=== PATIENT | male | born 1970 | race Caucasian/White ===

== ENCOUNTER 2022-04-02 18:10 | Inpatient (IN) | payer OTHER, SELFPAY ==
[2022-04-02 18:12] VITALS: BP 132/64; PULSE 69; RESP 14; TEMP 37.1; O2SAT 97; BMI 30.2
--- NOTE | 2022-04-02 19:40 | ED.VIS.GI ---
HPI HPI - GI History of Present Illness Chief Complaint: Nausea/Vomiting/Diarrhea Narrative Narrative: 51-year-old male presenting with nausea, vomiting, diarrhea. Apparently this started yesterday. Multiple episodes of vomiting and diarrhea which she describes as brownish-black. He has had no bloody emesis or bloody stool. He spoke with a friend who told him to come get evaluated because he was concerned for GI bleed. Patient is on Eliquis. He denies lightheadedness or dizziness. He states he has been recently referred to a GI doctor because of some early cirrhosis/fatty liver and elevated LFTs. He has no sick contacts. 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 He typically eats pizza. And other fast food side effects. He states he was previously put on pantoprazole for a month and did not realize how well it worked until he is been off of it. He has been taking Rolaids at home. He has tried Mylanta. His states he looks a little bit yellow to her. She states his colors been off since [place]. No acute changes since has been sick last couple of days. She states that he has lost weight however he states he weighed himself and he is about the same way. [facility] Medical History Afib Home Medications metoprolol tartrate 50 mg PO BID 06/12/15 [History Last Taken Unknown] apixaban [Eliquis] 5 mg PO BID 04/02/22 [History Last Taken Unknown] furosemide 40 mg PO DAILY 04/02/22 [History Last Taken Unknown] losartan-hydrochlorothiazide 1 tab PO DAILY 04/02/22 [History Last Taken Unknown] metoprolol succinate 100 mg PO DAILY 04/02/22 [History Last Taken Unknown] potassium chloride 20 meq PO DAILY 04/02/22 [History Last Taken Unknown] tamsulosin 0.4 mg PO DAILY 04/02/22 [History Last Taken Unknown] Allergy/AdvReac Type Severity Reaction Status Date / Time fish derived Allergy Anaphylaxis Verified 04/02/22 18:11 Penicillins Allergy Hives Verified 04/02/22 18:11 Social History Smoking Status: Former smoker ROS ROS ED Constitutional Constitutional ED: Denies chills or fever(s) ENT ENT ED: Denies rhinorrhea or sore throat Cardiovascular Cardiovascular: Denies chest pain or palpitations Respiratory/Chest Respiratory/Chest: Denies cough or dyspnea Gastrointestinal Gastrointestinal: Reports abdominal pain, diarrhea, melena, nausea and vomiting; Denies constipation Genitourinary Genitourinary ED: Denies dysuria or hematuria Musculoskeletal Musculoskeletal: Denies arthralgias or myalgias Integumentary Denies rash Neurologic Neurologic: Denies headache(s) or weakness Psychiatric Psychiatric: Denies anxiety or depression Endocrine Endocrinology: Denies polydipsia or polyuria EXAM Physical Exam Const Vital Signs: 04/02/22 18:12 Temperature 98.7 F Temperature Source Temporal Pulse Rate 69 Respiratory Rate 14 Blood Pressure 132/64 H Blood Pressure Mean 86 Pulse Ox 97 Oxygen Delivery Method Room Air Positive well nourished General Appearance ED: NAD; Negative for pallor HEENT normocephalic and atraumatic Eyes PERRL and EOMs intact bilaterally Resp normal respiratory effort and clear to auscultation bilaterally Cardio regular rate and regular rhythm GI non-tender, non-distended and no masses Auscultation: normoactive bowel sounds Palpation: soft Extremity full ROM General Extremety ED: Negative for edema General Extremity: Negative for edema Neuro CN's II-XII intact bilaterally and moves all extremities Sensorium / Orientation: alert, oriented to person, oriented to place and oriented to time Psych mental status grossly normal Skin General Skin Exam: Negative for jaundice or pallor MDM MDM MDM Narrative Medical decision making narrative: Patient presenting with black/brown emesis and black stool. He is concerned his blood. Acute. Hemoccult and this is negative however the patient's hemoglobin is dropped to 7.6. Today when and November 2021 his hemoglobin was 13.1. His BUN is elevated at 38 his creatinine is 1.24. Magnesium is normal at 1.9. Potassium low at 2.9 and the patient states this is a chronic issue when he takes oral medication for this but has been vomiting. Total bilirubin is elevated at 4.6 and last checked and was 1.6-1.8. He does have a history of fatty liver disease he was told. His AST is elevated at 74. Lipase negative. Patient was typed and screened but I do not believe he needs blood products currently. I spoke with Dr. Samuel who agreed. He recommended Protonix, holding Eliquis, fluid hydration and monitoring. We did discuss getting a CT scan of the abdomen pelvis and there is findings consistent with portal hypertension with mild mesenteric edema and ascites. Gallbladder is contracted with nonspecific findings on CAT scan. He does not have a Saucedo sign or right upper quadrant tenderness. Do not believe he needs a right upper quadrant ultrasound currently. Discussed with the hospitalist for admission. Patient transferred to the floor in stable condition. Impression: 1. Acute blood loss anemia 2. GI bleed 3. Hypokalemia 4. Thrombocytopenia 5. Hypokalemia Lab Data Labs: Laboratory Results - last 24 hr 04/02/22 04/02/22 04/02/22 18:35 18:35 18:35 WBC 7.1 RBC 2.16 L Hgb 7.6 L Hct 22.9 L MCV 106.0 H MCH 35.2 H MCHC 33.2 RDW Std Deviation 55.3 H RDW Coeff of Chris 14.4 Plt Count 70 L MPV 11.9 Immature Gran % (Auto) 0.300 Neut % (Auto) 60.3 Lymph % (Auto) 24.4 [place] % (Auto) 12.9 H Eos % (Auto) 1.7 Baso % (Auto) 0.4 Absolute Neuts (auto) 4.3 Absolute Lymphs (auto) 1.72 Nucleated RBC % 0 Differential Comment SEE COMMENT Platelet Estimate MOD DEC RBC Morphology N CHROM Hypochromasia 1+ Anisocytosis 1+ Macrocytosis 1+ Sodium 140 Potassium 2.9 L Chloride 103 Carbon Dioxide 31.0 Anion Gap 6 BUN 38 H Creatinine 1.24 Estim Creat Clear Calc 88.47 Est GFR (MDRD) Af Amer 80 Est GFR (MDRD) Non-Af 66 BUN/Creatinine Ratio 30.6 H Glucose 106 Calcium 9.5 Magnesium 1.9 Total Bilirubin 4.60 H AST 74 H ALT 41 Alkaline Phosphatase 85 Total Protein 7.8 Albumin 2.5 L Globulin 5.3 H Albumin/Globulin Ratio 0.5 L Lipase 123 Blood Type Antibody Screen 04/02/22 20:50 WBC RBC Hgb Hct MCV MCH MCHC RDW Std Deviation RDW Coeff of Chris Plt Count MPV Immature Gran % (Auto) Neut % (Auto) Lymph % (Auto) [place] % (Auto) Eos % (Auto) Baso % (Auto) Absolute Neuts (auto) Absolute Lymphs (auto) Nucleated RBC % Differential Comment Platelet Estimate RBC Morphology Hypochromasia Anisocytosis Macrocytosis Sodium Potassium Chloride Carbon Dioxide Anion Gap BUN Creatinine Estim Creat Clear Calc Est GFR (MDRD) Af Amer Est GFR (MDRD) Non-Af BUN/Creatinine Ratio Glucose Calcium Magnesium Total Bilirubin AST ALT Alkaline Phosphatase Total Protein Albumin Globulin Albumin/Globulin Ratio Lipase Blood Type A POSITIVE Antibody Screen NEGATIVE Radiography Diagnostic Testing: Clinical Impression(s) from Imaging Studies Abdomen/Pelvis CT 04/02/22 20:46 IMPRESSION: Diffuse hepatocellular disease and diffuse mesenteric edema with mild ascites. Recanalization of umbilical vein suggesting portal hypertension. Mild diverticular changes of the colon without evidence for acute diverticulitis Contracted thick-walled gallbladder with tiny poorly calcified stone or polyp. If concern for gallbladder disease ultrasound recommended Electronically Signed: Prieto Davis MD at 21:39 EDT Reading Location ID and State: [facility] / [place] , Service support , Discharge Plan Triage Chief Complaint: Nausea/Vomiting/Diarrhea ED Provider: Mejia Chin Dx/Rx/DC Orders Prescriptions: No Action metoprolol tartrate 50 MG tablet 50 mg PO BID RF: 0 furosemide 40 mg tablet 40 mg PO DAILY RF: 0 metoprolol succinate 100 mg tablet extended release 24 hr 100 mg PO DAILY RF: 0 tamsulosin 0.4 mg capsule 0.4 mg PO DAILY RF: 0 losartan-hydrochlorothiazide 100-12.5 mg tablet 1 tab PO DAILY RF: 0 Eliquis 5 mg tablet 5 mg PO BID RF: 0 potassium chloride 10 MEQ tablet,ER particles/crystals 20 meq PO DAILY RF: 0 Primary Care Provider: Jovan Hamilton
[2022-04-02] MEDS: 0.9% Normal Saline 1,000 ML 1000 ML IV (19:42)
[2022-04-02] MEDS: Ondansetron 4 MG/2 ML Vial IV (19:42)
[2022-04-02 19:46] LABS: Absolute Lymphocyte Count 1.72 X10^3/uL (0.83-4.51); Absolute Neutrophil Count 4.3 X10^3/uL (2.0-7.7); Basophil# 0.03 X10^3/uL; Basophil% 0.4 % (0-1); Eosinophil# 0.12 X10^3/uL; Eosinophils% 1.7 % (0-5); Hematocrit 22.9 % (40-54); Hemoglobin 7.6 g/dL (13.0-16.5); Lymphocyte # 1.72 X10^3/ul (0.83-4.51); Lymphocyte % 24.4 % (19-41); Mean Corp Hgb Conc 33.2 g/dL (32-36); Mean Corpuscular Hgb 35.2 pg (27.0-32.0); Mean Platelet Vol. 11.9 fl (6.2-12.0); Monocyte# 0.91 X10^3/uL; Monocyte% 12.9 % (0-10); NRBC Flagged by Analyzer 0 % (0-5); Neutrophil # 4.25 X10^3/uL (2.7-7.7); Neutrophil % 60.3 % (47-70); POSITIVE COUNT YES; Platelet Count 70 K/mm3 (150-450); RBC Distribution Width CV 14.4 % (11.6-14.6); RBC Distribution Width SD 55.3 fl (35.1-43.9); Red Blood Count 2.16 M/mm3 (4.6-6.2); White Blood Count 7.1 K/mm3 (4.4-11.0)
[2022-04-02] MEDS: Famotidine 200 MG/20 ML MDV 20 MG in 0.9% Normal Saline (Pres. free 8 ML 300 MG IV (19:53)
[2022-04-02 20:02] LABS: ALB/GLOB Ratio 0.5 RATIO (0.9-2.4); AST(SGOT) 74 U/L (15-37); Alanine Aminotransfer ALT/SGPT 41 U/L (16-61); Albumin, Serum 2.5 g/dL (3.2-5.0); Alkaline Phosphatase 85 U/L (45-117); Anion Gap 6 (5-15); BUN 38 mg/dL (7-18); BUN/Creat Ratio 30.6 RATIO (10-20); Calcium,Total 9.5 mg/dL (8.5-10.1); Chloride 103 mmol/L (98-107); Creatinine, Serum 1.24 mg/dL (0.70-1.30); EST Glomerular Filtration Rate 66 mL/min (>60); Est Glom Filt Rate - Afr Amer 80 mL/min (>60); Estimated Creatinine Clearance 88.47 ml/min; Globulin 5.3 g/dL (2.2-4.2); Glucose 106 mg/dL (74-106); Lipase 123 U/L (73-393); Potassium 2.9 mmol/L (3.5-5.1); Protein, Total 7.8 g/dL (6.4-8.2); Sodium Level 140 mmol/L (136-145)
[2022-04-02 20:35] LABS: Differential Indicated SCAN CRITERIA MET
[2022-04-02 20:36] LABS: Anisocytosis 1+; Hypochromasia 1+; Platelet Estimate MOD DEC (ADEQ); Red Cell Morphology N CHROM NORMAL (NORM C&C)
[2022-04-02 20:37] LABS: Macrocytosis 1+
--- NOTE | 2022-04-02 20:46 | CT_ITS ---
STUDY: CT ABDOMEN AND PELVIS WITH CONTRAST REASON FOR EXAM: Male, 51 years old. abdominal pain RADIATION DOSAGE (If Supplied By Facility): CTDIvol = ( 14.82 ) mGy, DLP = ( 1240.87 ) mGycm TECHNIQUE: Transaxial images were obtained from the dome of the diaphragm to the symphysis pubis without oral contrast. IV 75mL Isovue-370 was administered. Sagittal and coronal images were reconstructed. Individualized dose optimization techniques were used for this CT. COMPARISON: None. FINDINGS: The visualized lung bases are unremarkable. Heart is normal in size. There is mild pericardial calcification There is fluid in the right subphrenic space. Liver is mildly enlarged but homogeneous attenuation without mass or bile duct dilatation.. Thick-walled gallbladder with tiny poorly calcified stone or polyp.. Borderline splenomegaly. There is recanalization of the umbilical vein suggesting portal hypertension Normal pancreas. Normal bilateral adrenal glands. No evidence for renal obstruction. There is a small cyst in left kidney which do not require additional imaging. Normal visualized stomach. Normal small intestine. Mild diverticular changes of the distal descending and sigmoid colon without evidence for acute diverticulitis.. The appendix is visualized and appears normal. Minor atherosclerotic changes of the aorta without evidence for aneurysm.. Normal inferior vena cava. Normal retroperitoneum. Mild diffuse mesenteric edema and mild ascites is observed.. Poorly distended thick-walled bladder likely of no significance. Bilateral fat-containing inguinal hernias are noted. Lumbar spine demonstrates mild spondylosis. Interosseous hemangioma within the L5 vertebral body CT/Abdomen/Pelvis W IV Cont ONLY IMPRESSION: Diffuse hepatocellular disease and diffuse mesenteric edema with mild ascites. Recanalization of umbilical vein suggesting portal hypertension. Mild diverticular changes of the colon without evidence for acute diverticulitis Contracted thick-walled gallbladder with tiny poorly calcified stone or polyp. If concern for gallbladder disease ultrasound recommended Electronically Signed: Prieto Davis MD at 21:39 EDT ,
[2022-04-02 21:45] LABS: Magnesium 1.9 mg/dL (1.6-2.6)
[2022-04-02 22:00] VITALS: BP 132/78; PULSE 79; RESP 16; TEMP 36.6; O2SAT 97
[2022-04-02 22:32] LABS: Hematocrit 22.9 % (40-54); Hemoglobin 7.5 g/dL (13.0-16.5)
--- NOTE | 2022-04-02 22:48 | PCM.HP.STD ---
HPI - General General Date of Admission: 04/02/22 HPI Narrative CHENCHO MACARIO, is a 51 M who presented to the emergency department at [facility] on 04/02/2022 secondary to nausea, vomiting, and diarrhea. The patient reports that it started approximately 2 days ago. He states he has had multiple episodes of liquidy/watery diarrhea that he describes as blackish brown. He states he has had bowel movements every hour and indicates that anytime he eats he has a bowel movement approximately 45 minutes following. He has had no recent exposures to any antibiotics or anybody that is been ill. 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 He also reports that he has had some coffee-ground emesis periodically. He evidently spoke to a friend and told them what was going on and told him to come get evaluated because they were concerned for bleeding in his GI tract. The patient takes Eliquis at baseline for atrial fibrillation. He denied any lightheadedness or dizziness. He does indicate he is recently been referred to a GI doctor because of some concern for cirrhosis/fatty liver with abnormal LFTs. His appetite ebbs and flows. His states that he is changed dramatically since approximately [place] time with regards to his weight and his oral intake. The patient states he is lost approximately 12 pounds if that in the last year. He had previously been on Protonix but it was discontinued. Vital signs the emergency department showed a temperature of 98.7, heart rate of 69, blood pressure 132/64, respiratory rate of 14, and oxygen saturation of 97% on room air. His CBC showed normal white count but a hemoglobin of 7.6 with an MCV of 106 and a platelet count of 70,000. In November of this past year lab was performed at a different institution and he was found to have a hemoglobin at approximately 12.5 and a platelet count of 125,000 at that time. His chemistry panel showed a potassium of 2.9, BUN of 38 and a serum creatinine of 124. His renal function is elevated compared to baseline. His total bilirubin was 4.6 his AST was 74 and his ALT was 41. A lipase was performed and found to be 123. A CT of his abdomen pelvis was performed and showed diffuse hepatocellular disease and diffuse mesenteric edema with mild ascites, recannulization of the umbilical vein, mild diverticular changes in the colon without evidence of diverticulitis, a contracted thick-walled gallbladder with tiny calcified stones or polyp. [facility] Medical History Afib History of alcohol abuse Mild intermittent asthma Resistant hypertension Home Medications metoprolol tartrate 50 mg PO BID 06/12/15 [History Last Taken Unknown] apixaban [Eliquis] 5 mg PO BID 04/02/22 [History Last Taken Unknown] furosemide 40 mg PO DAILY 04/02/22 [History Last Taken Unknown] losartan-hydrochlorothiazide 1 tab PO DAILY 04/02/22 [History Last Taken Unknown] metoprolol succinate 100 mg PO DAILY 04/02/22 [History Last Taken Unknown] potassium chloride 20 meq PO DAILY 04/02/22 [History Last Taken Unknown] tamsulosin 0.4 mg PO DAILY 04/02/22 [History Last Taken Unknown] Allergy/AdvReac Type Severity Reaction Status Date / Time fish derived Allergy Anaphylaxis Verified 04/02/22 18:11 Penicillins Allergy Hives Verified 04/02/22 18:11 Family History (Updated 04/02/22 @ 23:[address] Rhina Varghese DO) Other Aortic valve disease CAD (coronary artery disease) COPD (chronic obstructive pulmonary disease) Cancer Hyperlipidemia Hypertension no surgical history Social History (Updated 04/02/22 @ 23:[address] Rhina Varghese DO) household members: spouse housing: house current occupational status: employed current occupation: Works in the [employer] business Smoking Status: Former smoker Smokeless tobacco user: chewing tobacco how long ago did patient quit smokin yrs alcohol intake: current alcohol intake frequency: a few times a week Alcohol type: beer details: Used to drink approximately 1 case daily for about 10 years-quit 20 yrs ago substance use type: does not use ROS Constitutional Constitutional: Reports change in weight and fatigue; Denies anorexia, chills, fever(s), malaise, night sweats, weakness or other Eyes Eyes: Denies blurry vision, change in eye color, change in vision, discharge from eye(s), double vision, erythema, eye pain, loss of vision or other ENT HEENT: Denies abnormal hearing, dysphagia, ear pain, epistaxis, headache(s), hearing loss, nasal congestion, nasal discharge, post nasal drip, sinus pressure, sore throat or other Cardiovascular Cardiovascular: Denies chest pain, claudication, dyspnea on exertion, edema, lightheadedness, orthopnea, palpitations, paroxysmal nocturnal dyspnea, rapid heart rate, syncope or other Respiratory/Chest Respiratory/Chest: Denies cough, dyspnea, excessive phlegm production, hemoptysis, productive cough, shortness of breath at rest, shortness of breath with exertion, wheezing or other Gastrointestinal Gastrointestinal: Reports coffee ground emesis, diarrhea, loose stools, melena, nausea and vomiting; Denies abdominal pain, constipation, dyspepsia, hematemesis, hematochezia or other Genitourinary Genitourinary: Reports difficulty urinating and urinary hesitancy; Denies burning urination, dysuria, hematuria, nocturia, urinary frequency, urinary incontinence, urinary urgency or other Musculoskeletal Musculoskeletal: Denies arthralgias, back pain, joint pain, joint stiffness, joint swelling, myalgias, neck pain or other Neurologic Neurologic: Denies abnormal gait, abnormal speech, confusion, disequilibrium, dizziness, focal weakness, headache(s), numbness, paresthesias, seizure-like activity, seizures, syncope, tingling, tremor(s) or other Psychiatric Psychiatric: Denies anxiety, depression, homicidal ideation, suicidal ideation or other Endocrine Endocrinology: Denies change in body appearance, cold intolerance, excessive sweating, heat intolerance, polydipsia, polyuria or other Hematologic/Lymphatic Hematologic/Lymphatic: Denies anemia, easy bleeding, easy bruising, lymphadenopathy or other Allergic/Immunologic Allergic/Immunologic: Denies rhinitis, hives, eczemia, asthma or other Vital Signs Vital Signs Vital Signs: 04/02/22 18:12 04/02/22 22:00 Temperature 98.7 F 98 F Temperature Source Temporal Temporal Pulse Rate 69 79 Respiratory Rate 14 16 Blood Pressure 132/64 H 132/78 H Blood Pressure Mean 86 96 Pulse Ox 97 97 Oxygen Delivery Method Room Air Room Air Weight Weight: 112.4 kg Body Mass Index (BMI) 30.2 Physical Exam Const alert, oriented x3 and no apparent distress Constitutional Narrative: Obese middle-aged white male, standing at the bedside and is just returned from the bathroom, appears ill but nontoxic, skin is ashen General Appearance: cooperative HEENT normocephalic, head/scalp atraumatic, hearing grossly normal bilaterally and moist oral mucous membranes HEENT Narrative: Dentition is fair, Mallampati is 2-3, no thrush Eyes PERRL and EOMs intact bilaterally Eyes Narrative: Pale conjunctiva bilaterally, scleral icterus present Neck no lymphadenopathy, supple, no JVD and no carotid bruits Neck Narrative: Trachea midline without thyroid enlargement Resp normal respiratory effort, no retractions, no use of accessory muscles and clear to auscultation bilaterally Auscultation: Negative for crackles, rales, rhonchi or wheezes Cardio regular rate, regular rhythm, S1 normal heart sound, S2 normal heart sound, no murmurs, no rub, no gallops, no clicks and no JVD GI normal to inspection, nondistended, normoactive bowel sounds, soft to palpation, non-tender and non-distended GI Narrative: Abdomen is slightly protuberant, no marked fluid wave noted, spleen and liver are difficult to palpate Extremity normal to inspection, full ROM and no clubbing, cyanosis or edema Extremity Narrative: Gait is normal Peripheral Pulses: Yes pulses 2+ throughout Skin no rashes or lesions noted, no wounds, skin turgor normal, No no jaundice, no petechiae and no mottling Skin Narrative: Jaundice with ashen color skin Neuro oriented x3, CN's II-XII intact bilaterally, moves all extremities and no focal motor deficits Neuro Narrative: Sensation is normal throughout Sensorium / Orientation: awake and alert Speech: speech normal Motor Exam: strength 5/5 throughout Psych affect normal Psych Narrative: Extremely pleasant Results Lab / Micro Data Attestation: I reviewed the patient's lab results. Result Diagrams: 04/02/22 22:20 04/02/22 18:35 Labs: Laboratory Results - last 24 hr 04/02/22 18:35: WBC 7.1, RBC 2.16 L, Hgb 7.6 L, Hct 22.9 L, MCV 106.0 H, MCH 35.2 H, MCHC 33.2, RDW Std Deviation 55.3 H, RDW Coeff of Chris 14.4, Plt Count 70 L, MPV 11.9, Immature Gran % (Auto) 0.300, Neut % (Auto) 60.3, Lymph % (Auto) 24.4, [place] % (Auto) 12.9 H, Eos % (Auto) 1.7, Baso % (Auto) 0.4, Absolute Neuts (auto) 4.3, Absolute Lymphs (auto) 1.72, Nucleated RBC % 0, Differential Comment SEE COMMENT, Platelet Estimate MOD DEC, RBC Morphology N CHROM, Hypochromasia 1+, Anisocytosis 1+, Macrocytosis 1+ 04/02/22 18:35: Sodium 140, Potassium 2.9 L, Chloride 103, Carbon Dioxide 31.0, Anion Gap 6, BUN 38 H, Creatinine 1.24, Estim Creat Clear Calc 88.47, Est GFR (MDRD) Af Amer 80, Est GFR (MDRD) Non-Af 66, BUN/Creatinine Ratio 30.6 H, Glucose 106, Calcium 9.5, Total Bilirubin 4.60 H, AST 74 H, ALT 41, Alkaline Phosphatase 85, Total Protein 7.8, Albumin 2.5 L, Globulin 5.3 H, Albumin/Globulin Ratio 0.5 L, Lipase 123 04/02/22 18:35: Magnesium 1.9 04/02/22 20:50: Blood Type A POSITIVE, Antibody Screen NEGATIVE 04/02/22 22:20: Hgb 7.5 L, Hct 22.9 L Micro: Microbiology 04/02/22 21:00 Stool Stool Occult Blood (DAVIAN) - Final Radiology Impression Abdomen/Pelvis CT 04/02/22 20:46 IMPRESSION: Diffuse hepatocellular disease and diffuse mesenteric edema with mild ascites. Recanalization of umbilical vein suggesting portal hypertension. Mild diverticular changes of the colon without evidence for acute diverticulitis Contracted thick-walled gallbladder with tiny poorly calcified stone or polyp. If concern for gallbladder disease ultrasound recommended Electronically Signed: Prieto Davis MD at 21:39 EDT , Assessment & Plan Assessment/Plan (1) Nausea & vomiting: (2) Diarrhea: (3) Macrocytic anemia: (4) Hyperbilirubinemia: (5) Thrombocytopenia: (6) Splenomegaly: (7) Portal hypertension: PLAN: Nausea/vomiting/diarrhea -P.o. diet as able but n.p.o. after midnight for scope -Antiemetics -Check C. 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 Acute macrocytic anemia with suspected upper GI bleed -Elevated BUN to creatinine ratio with a BUN of 38 and a serum creatinine of 1.24 -Protonix drip -Octreotide drip -Ceftriaxone 1 g daily for SBP prophylaxis given liver disease on CT -H&H every 4 hours x2 with repeat CBC in a.m. -Transfuse for hemoglobin less than 7 -Hemoglobin was approximately 13 in November and now 7.6 -Hemoccult was surprisingly negative -EGD in a.m. -Check iron studies--> macrocytic but it appears patient has chronic blood loss -Hold apixaban -Gastroenterology consulted -Case discussed with Dr. Samuel this evening Hypokalemia -We will give 40 mill equivalents of IV potassium with nausea and vomiting -Check a.m. magnesium level -Repeat potassium in a.m. Liver disease -Etiology is unknown at this time -Patient does have remote history of alcohol abuse at which time he drank approximately case a day for 10 years -No excessive drinking in the last 20 years and he currently admits to 1-2 beers weekly -Check hepatitis studies--> no known history of hepatitis and no history of IV drug use -Serum ferritin is pending -Check a.m. coags -CT with evidence of portal hypertension -Continue metoprolol -Hold Lasix -Patient states father is undergoing work-up for nonspecific liver disease at this time as well Hypertension -Hold losartan/hydrochlorothiazide -Continue home metoprolol -Per the MAR the patient is on metoprolol succinate and metoprolol tartrate--> will need to clarify -We will leave patient on succinate at this time -As needed hydralazine -May be able to restart losartan tomorrow Paroxysmal atrial fibrillation -Patient is currently in normal sinus rhythm -Continue metoprolol -Hold apixaban -Patient is seeing cardiology as an outpatient and plans to undergo a ablation in the future Hyperbilirubinemia with jaundice -Bilirubin is 4.60 -Repeat in a.m. -Likely related to liver disease Thrombocytopenia -Patient appears to have splenomegaly that is mild CT -Suspect thrombocytopenia is related to his ongoing liver disease -Monitor platelets -In November platelets 125,000--today platelet 70,000 DVT prophylaxis -SCDs -Hold home apixaban given anemia with concerns for upper GI bleed CODE STATUS -Full code Charges/Coding Visit Charges Inpatient E&M: 95170 Init Hosp L3
--- NOTE | 2022-04-02 23:00 | PCM.CONS.GEN ---
Assessment & Plan Assessment/Plan (1) Thrombocytopenia: PLAN: I suspect this is secondary to blood hypertension associated with cirrhosis. His platelet count at this time seem to be stable (2) Splenomegaly: PLAN: . Enlarged spleen likely secondary to portal hypertension associated with underlying cirrhosis from an unknown cause at this time. (3) Portal hypertension: PLAN: Portal hypertension identified on imaging which could possibly lead to esophageal, duodenal or gastric varices. He will need upper endoscopy to evaluate this. (4) History of alcohol abuse: PLAN: Please stop drinking years ago. However he could have developed fatty liver disease during that time but subsequently could have led to underlying cirrhosis. He will need an biochemical work-up and possible liver biopsy (5) GI bleed: PLAN: . He will need to undergo upper endoscopy to evaluate of his upper GI tract. Recommend octreotide drip at this time, 1 g of ceftriaxone IV every 24 hours and a PPI drip. HPI Consult Data Date of Consult: 04/03/22 HPI Narrative Reason for Consultation: jaundice and GI bleed HPI Narrative: CHENCHO MACARIO, is a 51 M who presents with nausea, vomiting, diarrhea.? Apparently this started yesterday.? Multiple episodes of vomiting and diarrhea which she describes as brownish-black.? He has had no bloody emesis or bloody stool.? He spoke with a friend who told him to come get evaluated because he was concerned for GI bleed.? Patient is on Eliquis.? He denies lightheadedness or dizziness.? He states he has been recently referred to a GI doctor because of some early cirrhosis/fatty liver and elevated LFTs.? He has no sick contacts.? 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 The patient takes Eliquis at baseline for atrial fibrillation.? He denied any lightheadedness or dizziness.? Vital signs the emergency department showed a temperature of 98.7, heart rate of 69, blood pressure 132/64, respiratory rate of 14, and oxygen saturation of 97% on room air.? His CBC showed normal white count but a hemoglobin of 7.6 with an MCV of 106 and a platelet count of 70,000.? In November of this past year lab was performed at a different institution and he was found to have a hemoglobin at approximately 12.5 and a platelet count of 125,000 at that time.? His chemistry panel showed a potassium of 2.9, BUN of 38 and a serum creatinine of 124.? His renal function is elevated compared to baseline.? His total bilirubin was 4.6 his AST was 74 and his ALT was 41.? A lipase was performed and found to be 123.? A CT of his abdomen pelvis was performed and showed diffuse hepatocellular disease and diffuse mesenteric edema with mild ascites, recannulization of the umbilical vein, mild diverticular changes in the colon without evidence of diverticulitis, a contracted thick-walled gallbladder with tiny calcified stones or polyp. His states he looks a little bit yellow to her.? She states his colors been off since [place].? No acute changes since has been sick last couple of days.? She states that he has lost weight however he states he weighed himself and he is about the same way. His stools were checked and it turned out to be positive for C. difficile. [facility] Medical History (Updated 04/03/22 @ 18:[address] Cornelius Samuel, DO) Afib GI bleed History of alcohol abuse Mild intermittent asthma Resistant hypertension Home Medications apixaban 5 mg tablet (Eliquis) 5 mg PO BID 04/02/22 [History Last Taken Unknown] furosemide 40 mg tablet 40 mg PO DAILY 04/02/22 [History Last Taken Unknown] losartan 100 mg-hydrochlorothiazide 12.5 mg tablet 1 tab PO DAILY 04/02/22 [History Last Taken Unknown] metoprolol succinate 100 mg tablet,extended release 24 hr 100 mg PO DAILY 04/02/22 [History Last Taken Unknown] potassium chloride 10 mEq tablet,extended release(part/cryst) 20 meq PO DAILY 04/02/22 [History Last Taken Unknown] tamsulosin 0.4 mg capsule 0.4 mg PO DAILY 04/02/22 [History Last Taken Unknown] Allergy/AdvReac Type Severity Reaction Status Date / Time fish derived Allergy Anaphylaxis Verified 04/02/22 18:11 Penicillins Allergy Hives Verified 04/02/22 18:11 Family History (Updated 04/02/22 @ 23:[address] Rhina Varghese DO) Other Aortic valve disease CAD (coronary artery disease) COPD (chronic obstructive pulmonary disease) Cancer Hyperlipidemia Hypertension Surgical History (Updated 04/03/22 @ 00:34 by Dai Noel) History of mandibular surgery S/P hernia surgery Surgical History no surgical history Social History (Updated 04/02/22 @ 23:[address] Rhina Varghese, DO) household members: spouse housing: house current occupational status: employed current occupation: Works in the [employer] business Smoking Status: Former smoker Smokeless tobacco user: chewing tobacco how long ago did patient quit smokin yrs alcohol intake: current alcohol intake frequency: a few times a week Alcohol type: beer details: Used to drink approximately 1 case daily for about 10 years-quit 20 yrs ago substance use type: does not use ROS Constitutional Constitutional: Reports change in weight and fatigue; Denies anorexia, chills, fever(s), malaise, night sweats, weakness or other Eyes Eyes: Denies blurry vision, change in eye color, change in vision, discharge from eye(s), double vision, erythema, eye pain, loss of vision or other ENT HEENT: Denies abnormal hearing, dysphagia, ear pain, epistaxis, headache(s), hearing loss, nasal congestion, nasal discharge, post nasal drip, sinus pressure, sore throat or other Cardiovascular Cardiovascular: Denies chest pain, claudication, dyspnea on exertion, edema, lightheadedness, orthopnea, palpitations, paroxysmal nocturnal dyspnea, rapid heart rate, syncope or other Respiratory/Chest Respiratory/Chest: Denies cough, dyspnea, excessive phlegm production, hemoptysis, productive cough, shortness of breath at rest, shortness of breath with exertion, wheezing or other Gastrointestinal Gastrointestinal: Reports coffee ground emesis, diarrhea, loose stools, melena, nausea and vomiting; Denies abdominal pain, constipation, dyspepsia, hematemesis, hematochezia or other Genitourinary Genitourinary: Reports difficulty urinating and urinary hesitancy; Denies burning urination, dysuria, hematuria, nocturia, urinary frequency, urinary incontinence, urinary urgency or other Musculoskeletal Musculoskeletal: Denies arthralgias, back pain, joint pain, joint stiffness, joint swelling, myalgias, neck pain or other Neurologic Neurologic: Denies abnormal gait, abnormal speech, confusion, disequilibrium, dizziness, focal weakness, headache(s), numbness, paresthesias, seizure-like activity, seizures, syncope, tingling, tremor(s) or other Psychiatric Psychiatric: Denies anxiety, depression, homicidal ideation, suicidal ideation or other Endocrine Endocrinology: Denies change in body appearance, cold intolerance, excessive sweating, heat intolerance, polydipsia, polyuria or other Hematologic/Lymphatic Hematologic/Lymphatic: Denies anemia, easy bleeding, easy bruising, lymphadenopathy or other Allergic/Immunologic Allergic/Immunologic: Denies rhinitis, hives, eczemia, asthma or other Physical Exam Const alert, oriented x3 and no apparent distress Constitutional Narrative: Obese middle-aged white male, standing at the bedside and is just returned from the bathroom, appears ill but nontoxic, skin is ashen General Appearance: cooperative HEENT normocephalic, head/scalp atraumatic, hearing grossly normal bilaterally and moist oral mucous membranes HEENT Narrative: Dentition is fair, Mallampati is 2-3, no thrush Eyes PERRL and EOMs intact bilaterally Eyes Narrative: Pale conjunctiva bilaterally, scleral icterus present Neck no lymphadenopathy, supple, no JVD and no carotid bruits Neck Narrative: Trachea midline without thyroid enlargement Resp normal respiratory effort, no retractions, no use of accessory muscles and clear to auscultation bilaterally Auscultation: Negative for crackles, rales, rhonchi or wheezes Cardio regular rate, regular rhythm, S1 normal heart sound, S2 normal heart sound, no murmurs, no rub, no gallops, no clicks and no JVD GI normal to inspection, nondistended, normoactive bowel sounds, soft to palpation, non-tender and non-distended GI Narrative: Abdomen is slightly protuberant, no marked fluid wave noted, spleen and liver are difficult to palpate Extremity normal to inspection, full ROM and no clubbing, cyanosis or edema Extremity Narrative: Gait is normal Peripheral Pulses: Yes pulses 2+ throughout Skin no rashes or lesions noted, no wounds, skin turgor normal, No no jaundice, no petechiae and no mottling Skin Narrative: Jaundice with ashen color skin Neuro oriented x3, CN's II-XII intact bilaterally, moves all extremities and no focal motor deficits Neuro Narrative: Sensation is normal throughout Sensorium / Orientation: awake and alert Speech: speech normal Motor Exam: strength 5/5 throughout Psych affect normal Psych Narrative: Extremely pleasant Lab / Micro Data Result Diagrams: 04/03/22 05:52 04/03/22 05:52 Labs: Laboratory Results - last 24 hr 04/02/22 18:35: WBC 7.1, RBC 2.16 L, Hgb 7.6 L, Hct 22.9 L, MCV 106.0 H, MCH 35.2 H, MCHC 33.2, RDW Std Deviation 55.3 H, RDW Coeff of Chris 14.4, Plt Count 70 L, MPV 11.9, Immature Gran % (Auto) 0.300, Neut % (Auto) 60.3, Lymph % (Auto) 24.4, [place] % (Auto) 12.9 H, Eos % (Auto) 1.7, Baso % (Auto) 0.4, Absolute Neuts (auto) 4.3, Absolute Lymphs (auto) 1.72, Nucleated RBC % 0, Differential Comment SEE COMMENT, Platelet Estimate MOD DEC, RBC Morphology N CHROM, Hypochromasia 1+, Anisocytosis 1+, Macrocytosis 1+ 04/02/22 18:35: Sodium 140, Potassium 2.9 L, Chloride 103, Carbon Dioxide 31.0, Anion Gap 6, BUN 38 H, Creatinine 1.24, Estim Creat Clear Calc 88.47, Est GFR (MDRD) Af Amer 80, Est GFR (MDRD) Non-Af 66, BUN/Creatinine Ratio 30.6 H, Glucose 106, Calcium 9.5, Total Bilirubin 4.60 H, AST 74 H, ALT 41, Alkaline Phosphatase 85, Total Protein 7.8, Albumin 2.5 L, Globulin 5.3 H, Albumin/Globulin Ratio 0.5 L, Lipase 123 04/02/22 18:35: Magnesium 1.9 04/02/22 18:35: Ferritin 408 H 04/02/22 18:35: Iron 190 H, TIBC 208 L, Iron Saturation 91.3 H 04/02/22 20:50: Blood Type A POSITIVE, Antibody Screen NEGATIVE 04/02/22 20:50: Crossmatch See Detail 04/02/22 22:20: Hgb 7.5 L, Hct 22.9 L 04/02/22 22:20: Hepatitis C Antibody Non-Reactive 04/03/22 01:50: Hgb 7.2 L, Hct 20.7 L 04/03/22 05:52: WBC 5.6, RBC 1.90 L, Hgb 6.8 L, Hct 20.5 L, MCV 107.9 H, MCH 35.8 H, MCHC 33.2, RDW Std Deviation 56.8 H, RDW Coeff of Chris 14.6, Plt Count 62 L, MPV 11.7, Immature Gran % (Auto) 0.400, Neut % (Auto) 55.5, Lymph % (Auto) 28.6, [place] % (Auto) 11.6 H, Eos % (Auto) 3.4, Baso % (Auto) 0.5, Absolute Neuts (auto) 3.1, Absolute Lymphs (auto) 1.61, Nucleated RBC % 0 04/03/22 05:52: PT 21.8 H, INR 1.9 04/03/22 05:52: Sodium 140, Potassium 3.4 L, Chloride 105, Carbon Dioxide 26.0, Anion Gap 9, BUN 33 H, Creatinine 1.36 H, Estim Creat Clear Calc 80.67, Est GFR (MDRD) Af Amer 72, Est GFR (MDRD) Non-Af 59 L, BUN/Creatinine Ratio 24.3 H, Glucose 99, Calcium 8.6, Phosphorus 2.8, Magnesium 1.9, Total Bilirubin 3.80 H, AST 83 H, ALT 40, Alkaline Phosphatase 74, Total Protein 6.9, Albumin 2.3 L, Globulin 4.6 H, Albumin/Globulin Ratio 0.5 L, TSH 1.01 Micro: Microbiology 04/03/22 02:04 Stool C. difficile GDH Antigen & Toxins - Final 04/03/22 02:04 Stool C. difficile DNA Amplification - Final 04/03/22 02:04 Stool Enteric Bacteriology - Final 04/02/22 21:00 Stool Stool Occult Blood (DAVIAN) - Final Radiology Impression Abdomen/Pelvis CT 04/02/22 20:46 IMPRESSION: Diffuse hepatocellular disease and diffuse mesenteric edema with mild ascites. Recanalization of umbilical vein suggesting portal hypertension. Mild diverticular changes of the colon without evidence for acute diverticulitis Contracted thick-walled gallbladder with tiny poorly calcified stone or polyp. If concern for gallbladder disease ultrasound recommended Electronically Signed: Prieto Davis MD at 21:39 EDT Reading Location ID and State: [facility] / [place] , Service support , Charges/Coding Visit Charges Inpatient E&M: 33680 Init Hosp L3
[2022-04-02 23:06] VITALS: BMI 30.4
[2022-04-02 23:09] LABS: Ferritin 408 ng/mL (26-388)
[2022-04-02 23:10] VITALS: BP 135/68; PULSE 67; RESP 18; TEMP 36.9; O2SAT 100
[2022-04-02] MEDS: 0.9% Normal Saline 1,000 ML 75 ML IV (23:20)
[2022-04-02 23:23] LABS: Iron 190 ug/dL (65-175); Iron Binding Capacity,Total 208 ug/dL (250-450); PERCENT IRON SATURATION 91.3 % (15.0-55.0)
[2022-04-02] MEDS: Ceftriaxone 1 GM/50 ML BAG IV (23:39)
[2022-04-02] MEDS: Potassium Chloride 10mEq/100mL 10 MEQ/100 ML IV.SOLN. 100 MEQ IV BOLUS (23:48)
[2022-04-03] VITALS (18 sets, daily range): BP systolic 95–131; BP diastolic 45–86; PULSE 61–89; RESP 16–18; TEMP 36.4–37.4; O2SAT 96–100; BMI 30.4
[2022-04-03] MEDS: Potassium Chloride 10mEq/100mL 10 MEQ/100 ML IV.SOLN. 100 MEQ IV BOLUS ×3 (00:28→02:30)
[2022-04-03 02:04] LABS: Hemoglobin 7.2 g/dL (13.0-16.5)
[2022-04-03 02:05] LABS: Hematocrit 20.7 % (40-54)
--- NOTE | 2022-04-03 05:00 | EKG12_ITS ---
Test Reason : AM EKG Blood Pressure : / mmHG Vent. Rate : 069 BPM Atrial Rate : 069 BPM P-R Int : 164 ms QRS Dur : 096 ms QT Int : 476 ms P-R-T Axes : 056 047 102 degrees QTc Int : 510 ms Sinus rhythm with Fusion complexes Low voltage QRS (Limb Leads) T wave abnormality, consider anterior-lateral ischemia Prolonged QT Abnormal ECG Confirmed by HUGO DEXTER, VALERIE ([id number]), news video editor MATTEO MCKEON ([id number]) on 04/04/2022 10:14:49 AM Referred By: YENIFER Confirmed By:VALERIE ARIAS MD
[2022-04-03 05:47] LABS: Hepatitis C Antibody Non-Reactive (Nonreactive)
[2022-04-03] MEDS: Ondansetron 4 MG/2 ML Vial IV (06:10)
[2022-04-03] MEDS: 0.9% Saline Lock 10 ML Syringe IV ×2 (06:10→20:25)
[2022-04-03 06:26] LABS: Absolute Lymphocyte Count 1.61 X10^3/uL (0.83-4.51); Absolute Neutrophil Count 3.1 X10^3/uL (2.0-7.7); Basophil# 0.03 X10^3/uL; Basophil% 0.5 % (0-1); Eosinophil# 0.19 X10^3/uL; Eosinophils% 3.4 % (0-5); Hematocrit 20.5 % (40-54); Hemoglobin 6.8 g/dL (13.0-16.5); Lymphocyte # 1.61 X10^3/ul (0.83-4.51); Lymphocyte % 28.6 % (19-41); Mean Corp Hgb Conc 33.2 g/dL (32-36); Mean Corpuscular Hgb 35.8 pg (27.0-32.0); Mean Corpuscular Volume 107.9 fL (80-94); Mean Platelet Vol. 11.7 fl (6.2-12.0); Monocyte# 0.65 X10^3/uL; Monocyte% 11.6 % (0-10); NRBC Flagged by Analyzer 0 % (0-5); Neutrophil # 3.12 X10^3/uL (2.7-7.7); Neutrophil % 55.5 % (47-70); POSITIVE COUNT YES; Platelet Count 62 K/mm3 (150-450); RBC Distribution Width CV 14.6 % (11.6-14.6); RBC Distribution Width SD 56.8 fl (35.1-43.9); White Blood Count 5.6 K/mm3 (4.4-11.0)
[2022-04-03 06:35] LABS: International Normalized Ratio 1.9; Prothrombin Time (Protime)PT. 21.8 SECONDS (11.7-14.9)
--- NOTE | 2022-04-03 06:37 | PCM.HOSP.N ---
Hospitalist Note Hemoglobin dropped to 6.8 this morning. Hemoglobin since admission have been 7.6-7.5-7.2-6.8. May be somewhat delusional as patient has gotten some IV fluids however with drop below 7 we will transfuse 1 unit packed red blood cells. Patient has already been typed and screened. GI to evaluate the patient later today. Patient is currently NPO.
[2022-04-03 07:08] LABS: ALB/GLOB Ratio 0.5 RATIO (0.9-2.4); AST(SGOT) 83 U/L (15-37); Alanine Aminotransfer ALT/SGPT 40 U/L (16-61); Albumin, Serum 2.3 g/dL (3.2-5.0); Alkaline Phosphatase 74 U/L (45-117); Anion Gap 9 (5-15); BUN 33 mg/dL (7-18); BUN/Creat Ratio 24.3 RATIO (10-20); Calcium,Total 8.6 mg/dL (8.5-10.1); Chloride 105 mmol/L (98-107); Creatinine, Serum 1.36 mg/dL (0.70-1.30); EST Glomerular Filtration Rate 59 mL/min (>60); Est Glom Filt Rate - Afr Amer 72 mL/min (>60); Estimated Creatinine Clearance 80.67 ml/min; Globulin 4.6 g/dL (2.2-4.2); Glucose 99 mg/dL (74-106); Magnesium 1.9 mg/dL (1.6-2.6); Phosphorus 2.8 mg/dL (2.5-4.9); Potassium 3.4 mmol/L (3.5-5.1); Protein, Total 6.9 g/dL (6.4-8.2); Sodium Level 140 mmol/L (136-145); Thyroid Stim Hormone (TSH) 1.01 uIU/mL (0.358-3.74)
[2022-04-03] MEDS: Lactated Ringers 1,000 ML 15 ML IV (13:20)
--- NOTE | 2022-04-03 14:07 | CASEMGMT ---
Addendum entered by Katlin Kong 04/03/22 15:16: Pt still off floor for scope with Dr. Samuel. Neema MORIN CM Original Note: This RN CM to room to complete CM assessment and pt is out of the dept. CM to attempt again later. Neema MORIN CM
--- NOTE | 2022-04-03 14:29 | OP.EGD_ITS ---
Patient Name: Alok Adams Procedure Date: 04/03/2022 2:17 PM Date of : 1970 Age: 51 Procedure: Upper GI endoscopy Indications: Acute post hemorrhagic anemia, Iron deficiency anemia Providers: Cornelius Samuel DO Medicines: Monitored Anesthesia Care Patient Profile: This is a 51 year old male. Refer to note in patient chart for documentation of history and physical. Patient has symptoms. Complications: No immediate complications. Procedure: Pre-Anesthesia Assessment: - Prior to the procedure, a History and Physical was performed, and patient medications and allergies were reviewed. The patient is competent. The risks and benefits of the procedure and the sedation options and risks were discussed with the patient. All questions were answered and informed consent was obtained. Patient identification and proposed procedure were verified by the physician in the pre-procedure area. Mental Status Examination: alert and oriented. Airway Examination: normal oropharyngeal airway and neck mobility. Respiratory Examination: clear to auscultation. CV Examination: normal. Prophylactic Antibiotics: The patient does not require prophylactic antibiotics. Prior Anticoagulants: The patient has taken no previous anticoagulant or antiplatelet agents. ASA Grade Assessment: II - A patient with mild systemic disease. After reviewing the risks and benefits, the patient was deemed in satisfactory condition to undergo the procedure. The anesthesia plan was to use moderate sedation / analgesia (conscious sedation). Immediately prior to administration of medications, the patient was re-assessed for adequacy to receive sedatives. The heart rate, respiratory rate, oxygen saturations, blood pressure, adequacy of pulmonary ventilation, and response to care were monitored throughout the procedure. The physical status of the patient was re-assessed after the procedure. After obtaining informed consent, the endoscope was passed under direct vision. Throughout the procedure, the patient's blood pressure, pulse, and oxygen saturations were monitored continuously. The gastroscope was introduced through the mouth, and advanced to the second part of duodenum. The upper GI endoscopy was accomplished without difficulty. The patient tolerated the procedure well. Scope In: 2:20:45 PM Scope Out: 2:24:47 PM Total Procedure Duration Time 0 hours 4 minutes 2 seconds Findings: The examined esophagus was normal. Severe portal hypertensive gastropathy was found in the entire examined stomach. Red blood was found in the gastric antrum. Three 5 mm bleeding angiodysplastic lesions were found in the stomach. Coagulation for hemostasis using argon beam at 0.3 liters/minute and 20 boykin was successful. One non-bleeding cratered duodenal ulcer with no stigmata of bleeding was found in the duodenal bulb. The lesion was 6 mm in largest dimension. Impression: - Normal esophagus. - Portal hypertensive gastropathy. - Red blood in the gastric antrum. - Three bleeding angiodysplastic lesions in the stomach. Treated with argon beam coagulation. - One non-bleeding duodenal ulcer with no stigmata of bleeding. - No specimens collected. Recommendation: - [facility]. - Resume previous diet. - Continue present medications. Procedure Code(s): --- Professional --- 09055, Esophagogastroduodenoscopy, flexible, transoral; with control of bleeding, any method CPT copyright 2017 [employer]. All rights reserved. The codes documented in this report are preliminary and upon skin care technician review may be revised to meet current compliance requirements. Cornelius Samuel DO 04/03/2022 2:28:48 PM This report has been signed electronically. Number of Addenda: 1 Note Initiated On: 04/03/2022 2:17 PM Addendum Number: 1 Addendum Date: 07/23/2022 6:18:14 AM MAC was used as sedation for this procedure. Cornelius Samuel DO 07/23/2022 6:18:21 AM This report has been signed electronically.
--- NOTE | 2022-04-03 14:30 | OP.CCLET_ITS ---
07/23/2022 Jovan Hamilton [address] [place] [address] Re : Upper GI endoscopy procedure for Alok Adams Dear Dr. Hamilton This procedure was performed on Sunday, April 03, 2022. My impressions and recommendations are as follows: Impressions : - Normal esophagus. - Portal hypertensive gastropathy. - Red blood in the gastric antrum. - Three bleeding angiodysplastic lesions in the stomach. Treated with argon beam coagulation. - One non-bleeding duodenal ulcer with no stigmata of bleeding. - No specimens collected. Recommendations : - [facility]. - Resume previous diet. - Continue present medications. My findings are described in the full procedure note, which is enclosed. If I can be of further assistance, please feel free to contact me at . Sincerely, Cornelius Samuel, 04/03/2022 2:28:48 PM This report has been signed electronically.
--- NOTE | 2022-04-03 20:13 | PN.HOSP_ITS ---
Subjective Subjective Patient was seen and examined today, he received packed red blood cells due to his anemia today, patient underwent an EGD today which showed portal hypertensive gastropathy, there was red blood in the gastric antrum, there were 3 bleeding angiodysplastic lesions in the stomach that was treated with coagulation. 1 nonbleeding duodenal ulcer was noted to be present. Patient's C. difficile toxin came back positive today patient was placed on oral vancomycin today. Objective Data Objective Data Vital Signs: Vital Signs Temp Pulse Resp BP Pulse Ox 98.1 F 74 16 113/64 100 04/03/22 15:55 04/03/22 19:33 04/03/22 15:55 04/03/22 15:55 04/03/22 15:55 Oxygen Delivery Method Room Air Weight: 113.6 kg Body Mass Index (BMI) 30.4 Intake & Output: Intake and Output for Last 24 Hours 04/01/22 04/02/22 04/03/22 23:59 23:59 23:59 Intake Total 1132.5 / 1132.5 2401.46 / 2401.46 Balance 1132.5 / 1132.5 2401.46 / 2401.46 Lab / Micro Data Result Diagrams: 04/03/22 05:52 04/03/22 05:52 Labs: Laboratory Results - last 24 hr 04/02/22 18:35: WBC 7.1, RBC 2.16 L, Hgb 7.6 L, Hct 22.9 L, MCV 106.0 H, MCH 35.2 H, MCHC 33.2, RDW Std Deviation 55.3 H, RDW Coeff of Chris 14.4, Plt Count 70 L, MPV 11.9, Immature Gran % (Auto) 0.300, Neut % (Auto) 60.3, Lymph % (Auto) 24 .4, [place] % (Auto) 12.9 H, Eos % (Auto) 1.7, Baso % (Auto) 0.4, Absolute Neuts (auto) 4.3, Absolute Lymphs (auto) 1.72, Nucleated RBC % 0, Differential Comment SEE COMMENT, Platelet Estimate MOD DEC, RBC Morphology N CHROM, Hypochromasia 1+, Anisocytosis 1+, Macrocytosis 1+ 04/02/22 18:35: Magnesium 1.9 04/02/22 18:35: Ferritin 408 H 04/02/22 18:35: Iron 190 H, TIBC 208 L, Iron Saturation 91.3 H 04/02/22 20:50: Blood Type A POSITIVE, Antibody Screen NEGATIVE 04/02/22 20:50: Crossmatch See Detail 04/02/22 22:20: Hgb 7.5 L, Hct 22.9 L 04/02/22 22:20: Hepatitis C Antibody Non-Reactive 04/03/22 01:50: Hgb 7.2 L, Hct 20.7 L 04/03/22 05:52: WBC 5.6, RBC 1.90 L, Hgb 6.8 L, Hct 20.5 L, MCV 107.9 H, MCH 35.8 H, MCHC 33.2, RDW Std Deviation 56.8 H, RDW Coeff of Chris 14.6, Plt Count 62 L, MPV 11.7, Immature Gran % (Auto) 0.400, Neut % (Auto) 55.5, Lymph % (Auto) 28.6, [place] % (Auto) 11.6 H, Eos % (Auto) 3.4, Baso % (Auto) 0.5, Absolute Neuts (auto) 3.1, Absolute Lymphs (auto) 1.61, Nucleated RBC % 0 04/03/22 05:52: PT 21.8 H, INR 1.9 04/03/22 05:52: Sodium 140, Potassium 3.4 L, Chloride 105, Carbon Dioxide 26.0, Anion Gap 9, BUN 33 H, Creatinine 1.36 H, Estim Creat Clear Calc 80.67, Est GFR (MDRD) Af Amer 72, Est GFR (MDRD) Non-Af 59 L, BUN/Creatinine Ratio 24.3 H, Glucose 99, Calcium 8.6, Phosphorus 2.8, Magnesium 1.9, Total Bilirubin 3.80 H, AST 83 H, ALT 40, Alkaline Phosphatase 74, Total Protein 6.9, Albumin 2.3 L, Globulin 4.6 H, Albumin/Globulin Ratio 0.5 L, TSH 1.01 Micro: Microbiology 04/03/22 02:04 Stool C. difficile GDH Antigen & Toxins - Final 04/03/22 02:04 Stool C. difficile DNA Amplification - Final 04/03/22 02:04 Stool Enteric Bacteriology - Final 04/02/22 21:00 Stool Stool Occult Blood (DAVIAN) - Final Radiography Diagnostic Testing: Radiology Impression Abdomen/Pelvis CT 04/02/22 20:46 IMPRESSION: Diffuse hepatocellular disease and diffuse mesenteric edema with mild ascites. Recanalization of umbilical vein suggesting portal hypertension. Mild diverticular changes of the colon without evidence for acute diverticulitis Contracted thick-walled gallbladder with tiny poorly calcified stone or polyp. If concern for gallbladder disease ultrasound recommended Electronically Signed: Prieto Davis MD at 21:39 EDT , Physical Exam Const alert, oriented x3, no apparent distress and average body habitus HEENT head/scalp atraumatic and moist oral mucous membranes Eyes PERRL, EOMs intact bilaterally and conjunctivae normal Neck no lymphadenopathy, supple and no JVD Resp normal respiratory effort, no retractions, no use of accessory muscles and clear to auscultation bilaterally Cardio regular rate, regular rhythm, S1 normal heart sound, S2 normal heart sound, no murmurs and no rub GI soft to palpation, non-tender and non-distended Extremity normal to inspection and no clubbing, cyanosis or edema Neuro oriented x3, CN's II-XII intact bilaterally, moves all extremities and no focal motor deficits Sensorium / Orientation: awake, alert, oriented to person, oriented to place and oriented to time Speech: speech normal Motor Exam: strength 5/5 throughout Psych affect normal Assessment & Plan Assessment/Plan (1) GI bleed: PLAN: Plan 1. Upper GI bleed secondary to angiodysplasia of the stomach-patient's CBC will be monitored, he received packed red blood cells today, he will remain on a PPI, gastroenterology is seeing patient #2 C. difficile colitis-patient was placed on oral vancomycin #3 elevated creatinine-this will be rechecked tomorrow #4 hypokalemia-BMP will be rechecked in the morning #5 alcoholic liver disease-patient will need follow-up with gastroenterology #6 elevated liver enzymes-probably secondary to alcoholic liver disease-liver profile will be obtained tomorrow Charges/Coding Visit Charges Inpatient E&M: 24360 Subs Hosp L2
[2022-04-03] MEDS: Acetaminophen 325 MG Tablet 650 MG PO (20:24)
[2022-04-03] MEDS: Vancomycin 125 MG/5 ML Susp PO.SYRINGE PO (21:52)
[2022-04-03] MEDS: Ceftriaxone 1 GM/50 ML BAG IV (21:52)
[2022-04-03] MEDS: Pantoprazole Sodium 40 MG Tablet PO (21:52)
[2022-04-04] VITALS (10 sets, daily range): BP systolic 107–132; BP diastolic 59–65; PULSE 54–69; RESP 16–18; TEMP 36.6–37.2; O2SAT 96–97
[2022-04-04] MEDS: Vancomycin 125 MG/5 ML Susp PO.SYRINGE PO ×5 (01:06→23:33)
[2022-04-04 06:03] LABS: Absolute Lymphocyte Count 1.59 X10^3/uL (0.83-4.51); Absolute Neutrophil Count 3.2 X10^3/uL (2.0-7.7); Basophil# 0.04 X10^3/uL; Basophil% 0.7 % (0-1); Eosinophil# 0.37 X10^3/uL; Eosinophils% 6.4 % (0-5); Hematocrit 22.5 % (40-54); Hemoglobin 7.4 g/dL (13.0-16.5); Lymphocyte # 1.59 X10^3/ul (0.83-4.51); Lymphocyte % 27.4 % (19-41); Mean Corp Hgb Conc 32.9 g/dL (32-36); Mean Corpuscular Hgb 35.4 pg (27.0-32.0); Mean Corpuscular Volume 107.7 fL (80-94); Mean Platelet Vol. 11.9 fl (6.2-12.0); Monocyte# 0.56 X10^3/uL; Monocyte% 9.7 % (0-10); NRBC Flagged by Analyzer 0 % (0-5); Neutrophil # 3.23 X10^3/uL (2.7-7.7); Neutrophil % 55.6 % (47-70); POSITIVE COUNT YES; Platelet Count 61 K/mm3 (150-450); RBC Distribution Width CV 15.9 % (11.6-14.6); RBC Distribution Width SD 63.5 fl (35.1-43.9); Red Blood Count 2.09 M/mm3 (4.6-6.2); White Blood Count 5.8 K/mm3 (4.4-11.0)
[2022-04-04 08:09] LABS: Hepatitis A AB, Total Negative (Negative)
[2022-04-04 08:29] LABS: AST(SGOT) 193 U/L (15-37); Alanine Aminotransfer ALT/SGPT 75 U/L (16-61); Albumin, Serum 2.3 g/dL (3.2-5.0); Alkaline Phosphatase 73 U/L (45-117); Anion Gap 6 (5-15); BUN 28 mg/dL (7-18); BUN/Creat Ratio 18.1 RATIO (10-20); Bilirubin, Direct 2.03 mg/dL (0.00-0.30); Calcium,Total 8.3 mg/dL (8.5-10.1); Chloride 106 mmol/L (98-107); Creatinine, Serum 1.55 mg/dL (0.70-1.30); EST Glomerular Filtration Rate 51 mL/min (>60); Est Glom Filt Rate - Afr Amer 62 mL/min (>60); Estimated Creatinine Clearance 70.78 ml/min; Globulin 4.8 g/dL (2.2-4.2); Glucose 97 mg/dL (74-106); Potassium 3.4 mmol/L (3.5-5.1); Protein, Total 7.1 g/dL (6.4-8.2); Sodium Level 140 mmol/L (136-145)
[2022-04-04] MEDS: Acetaminophen 325 MG Tablet 650 MG PO (09:40)
[2022-04-04] MEDS: Tamsulosin HCl 0.4 MG Capsule PO (09:41)
[2022-04-04] MEDS: Metoprolol(XL)Succ 100 MG Tablet PO (09:41)
[2022-04-04] MEDS: Pantoprazole Sodium 40 MG Tablet PO ×2 (09:41→20:12)
--- NOTE | 2022-04-04 10:15 | PCM.PN.HOSP ---
Subjective Subjective Patient was seen and examined this morning, his hemoglobin was 7.4, he is not having any diarrhea today, I talked briefly with his about precautions regarding C. difficile, she states they do not have any power at their home and I stated that it in itself was not a reason to keep the patient in the hospital further. She understood this. Patient still complains of generalized weakness, I talked briefly with gastroenterology about his care, at this time, gastroenterology placed him on prednisone for his cirrhosis, I obtained a CBC this afternoon which showed hemoglobin of 7.4 so it appears the patient is not actively bleeding. I have elected to administer IV iron, I will repeat this tomorrow, I fully believe the patient will be stable for discharge in the morning. Objective Data Objective Data Vital Signs: Vital Signs Temp Pulse Resp BP Pulse Ox 98.5 F 68 18 132/59 H 96 04/04/22 09:35 04/04/22 09:41 04/04/22 09:35 04/04/22 09:35 04/04/22 09:35 Oxygen Delivery Method Room Air Weight: 113.6 kg Body Mass Index (BMI) 30.4 Intake & Output: Intake and Output for Last 24 Hours 04/02/22 04/03/22 04/04/22 23:59 23:59 23:59 Intake Total 1132.5 / 1132.5 2451.46 / 2451.46 Balance 1132.5 / 1132.5 2451.46 / 2451.46 Lab / Micro Data Result Diagrams: 04/04/22 05:13 04/04/22 05:13 Labs: Laboratory Results - last 24 hr 04/02/22 20:50: Crossmatch See Detail 04/04/22 05:13: WBC 5.8, RBC 2.09 L, Hgb 7.4 L, Hct 22.5 L, MCV 107.7 H, MCH 35.4 H, MCHC 32.9, RDW Std Deviation 63.5 H, RDW Coeff of Chris 15.9 H, Plt Count 61 L, MPV 11.9, Immature Gran % (Auto) 0.200, Neut % (Auto) 55.6, Lymph % (Auto) 27.4, Tucker % (Auto) 9.7, Eos % (Auto) 6.4 H, Baso % (Auto) 0.7, Absolute Neuts (auto) 3.2, Absolute Lymphs (auto) 1.59, Nucleated RBC % 0 04/04/22 05:13: Sodium 140, Potassium 3.4 L, Chloride 106, Carbon Dioxide 28.0, Anion Gap 6, BUN 28 H, Creatinine 1.55 H, Estim Creat Clear Calc 70.78, Est GFR (MDRD) Af Amer 62, Est GFR (MDRD) Non-Af 51 L, BUN/Creatinine Ratio 18.1, Glucose 97, Calcium 8.3 L, Total Bilirubin 4.00 H, Direct Bilirubin 2.03 H, AST 193 H, ALT 75 H, Alkaline Phosphatase 73, Total Protein 7.1, Albumin 2.3 L, Globulin 4.8 H Micro: Microbiology 04/03/22 02:04 Stool C. difficile GDH Antigen & Toxins - Final 04/03/22 02:04 Stool C. difficile DNA Amplification - Final 04/03/22 02:04 Stool Enteric Bacteriology - Final 04/02/22 21:00 Stool Stool Occult Blood (DAVIAN) - Final Physical Exam Const alert, oriented x3, no apparent distress and average body habitus Constitutional Narrative: Obese middle-aged white male, standing at the bedside and is just returned from the bathroom, appears ill but nontoxic, skin is ashen General Appearance: cooperative HEENT normocephalic, head/scalp atraumatic, hearing grossly normal bilaterally and moist oral mucous membranes Eyes PERRL, EOMs intact bilaterally and conjunctivae normal Eyes Narrative: Pale conjunctiva bilaterally, scleral icterus present Neck no lymphadenopathy, supple, no JVD and no carotid bruits Neck Narrative: Trachea midline without thyroid enlargement Resp normal respiratory effort, no retractions, no use of accessory muscles and clear to auscultation bilaterally Auscultation: Negative for crackles, rales, rhonchi or wheezes Cardio regular rate, regular rhythm, S1 normal heart sound, S2 normal heart sound, no murmurs, no rub, no gallops, no clicks and no JVD GI normal to inspection, nondistended, normoactive bowel sounds, soft to palpation, non-tender and non-distended GI Narrative: Abdomen is slightly protuberant, no marked fluid wave noted, spleen and liver are difficult to palpate Extremity normal to inspection, full ROM and no clubbing, cyanosis or edema Extremity Narrative: Gait is normal Skin no rashes or lesions noted, no wounds, skin turgor normal, No no jaundice, no petechiae and no mottling Skin Narrative: Jaundice with ashen color skin Neuro oriented x3, CN's II-XII intact bilaterally, moves all extremities and no focal motor deficits Neuro Narrative: Sensation is normal throughout Sensorium / Orientation: awake, alert, oriented to person, oriented to place and oriented to time Speech: speech normal Motor Exam: strength 5/5 throughout Psych affect normal Psych Narrative: Extremely pleasant Assessment & Plan Assessment/Plan (1) Hyperbilirubinemia: PLAN: Plan 1. Upper GI bleed secondary to angiodysplasia of the stomach-again patient's hemoglobin appears to be stable, I will order another H&H in the morning, patient will receive iron infusion again tomorrow. #2 C. difficile colitis-patient will remain on p.o. vancomycin, he should go home on 7 more days of oral vancomycin. #3 elevated creatinine-this will be rechecked tomorrow #4 hypokalemia-BMP will be rechecked in the morning #5 alcoholic liver disease/cirrhosis-patient will need follow-up with gastroenterology, again gastroenterology placed him on prednisone today. #6 elevated liver enzymes-probably secondary to alcoholic liver disease-complicates care recovery and prognosis Charges/Coding Visit Charges Inpatient E&M: 03437 Subs Hosp L2
--- NOTE | 2022-04-04 11:30 | CASEMGMT ---
Addendum entered by Katlin Kong 04/04/22 13:00: This RN CM back to room to complete assessment and pt is still sleeping. Will attempt again later. Neema MORIN CM Original Note: This RN CM to room to complete CM assessment and pt is sleeping without distress. Pt does not awaken to knock on door or verbal stimuli. CM to attempt again later. Neema MORIN CM
--- NOTE | 2022-04-04 14:55 | CASEMGMT ---
MIKEL WADE assessment: Face to Face with patient for initial transition planning/care coordination assessment. MIKEL WADE introduced self and role at [facility], pt voice understanding and consents to assessment. Pt is lying in bed in no distress on room air. Pt is A/Ox4 and answers all questions appropriately.? Care providers, pharmacy,?and demographics verified. ? Presentation: Abd pain, N/V/D, black emesis Admitting dx: GI bleed, anemia PCP: Alfonso Specialists: IRVING Allen cardio; SABINAF uro Preferred Pharmacy: [facility] Insurance: Cigna Prescription Benefit:?Cigna Living Will/HPOA: Pt does not have LW/HPOA and declines AD info. LNOK: Celina Adams, Living Arrangements: Pt lives with and 5 kids(all adult except youngest is a 15 yo) in 2 story home and states no concerns at home. Pt is independent with ADL's. Transportation: Pt drives self and states no transportation concerns. DME/HHC: Pt states no current DME or need for any further DME. Pt states no hx of HHC or SNF. Pt states no concerns with going home at time of discharge. 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 Pt does not smoke cigarettes or drink ETOH. Pt voices no further concerns/needs. CM to follow for any further discharge planning/needs. Advised pt to ask for CM if any further questions/concerns/needs arise, voices understanding. Pt Goal: Home ? Plan: [place] MIKEL WADE ?
--- NOTE | 2022-04-04 16:35 | PN_ITS ---
Subjective Subjective Patient stated is his diarrhea is a lot better. He has been tolerating a normal diet. Has been afebrile. He is not having any confusion. He has been resting. He feels like his jaundice is still the same. Objective Data Objective Data Vital Signs: Vital Signs Temp Pulse Resp BP Pulse Ox 97.9 F 54 L 16 112/65 97 04/04/22 15:35 04/04/22 15:35 04/04/22 15:35 04/04/22 15:35 04/04/22 15:35 Oxygen Delivery Method Room Air Weight: 250 lb 7.122 oz Body Mass Index (BMI) 30.4 Intake & Output: Intake and Output for Last 24 Hours 04/02/22 04/03/22 04/04/22 23:59 23:59 23:59 Intake Total 1132.5 / 1132.5 2451.46 / 2451.46 700 / 700 Balance 1132.5 / 1132.5 2451.46 / 2451.46 700 / 700 Lab / Micro Data Result Diagrams: 04/04/22 05:13 04/04/22 05:13 Labs: Laboratory Results - last 24 hr 04/04/22 05:13: WBC 5.8, RBC 2.09 L, Hgb 7.4 L, Hct 22.5 L, MCV 107.7 H, MCH 35.4 H, MCHC 32.9, RDW Std Deviation 63.5 H, RDW Coeff of Chris 15.9 H, Plt Count 61 L, MPV 11.9, Immature Gran % (Auto) 0.200, Neut % (Auto) 55.6, Lymph % (Auto) 27.4, Pickett % (Auto) 9.7, Eos % (Auto) 6.4 H, Baso % (Auto) 0.7, Absolute Neuts (auto) 3.2, Absolute Lymphs (auto) 1.59, Nucleated RBC % 0 04/04/22 05:13: Sodium 140, Potassium 3.4 L, Chloride 106, Carbon Dioxide 28.0, Anion Gap 6, BUN 28 H, Creatinine 1.55 H, Estim Creat Clear Calc 70.78, Est GFR (MDRD) Af Amer 62, Est GFR (MDRD) Non-Af 51 L, BUN/Creatinine Ratio 18.1, Glucose 97, Calcium 8.3 L, Total Bilirubin 4.00 H, Direct Bilirubin 2.03 H, AST 193 H, ALT 75 H, Alkaline Phosphatase 73, Total Protein 7.1, Albumin 2.3 L, Gl obulin 4.8 H Micro: Microbiology 04/03/22 02:04 Stool C. difficile GDH Antigen & Toxins - Final 04/03/22 02:04 Stool C. difficile DNA Amplification - Final 04/03/22 02:04 Stool Enteric Bacteriology - Final 04/02/22 21:00 Stool Stool Occult Blood (DAVIAN) - Final Physical Exam Const alert General Appearance: cooperative Orientation / Consciousness: oriented to person HEENT hearing grossly normal bilaterally Head and Scalp: normal to inspection Face and Sinus: face symmetric Nose: external nose normal Mouth: oral and palatal mucosa normal Eyes conjunctivae normal General Eye: normal appearance of both eyes Neck full ROM General: normal visual inspection Lymph Lymphatic: no lymphadenopathy noted Chest inspection of chest normal and palpation of chest normal Chest: symmetrical chest wall rise Resp normal respiratory effort Effort and Inspection: able to speak in complete sentences Cardio regular rate GI non-distended Percussion: normal to percussion Rectal Exam: deferred Neuro Speech: speech normal Gait (Neuro): normal gait Assessment & Plan Assessment/Plan (1) GI bleed: PLAN: Acute upper GI bleed was secondary to severe gastropathy resulting in oozing from the lining of the stomach. 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 These were treated endoscopically. He was on octreo tide, ceftriaxone and PPI drip. Octreotide can be stopped and Can Be Stopped. Continue Protonix 40 Mg P.O. Twice Daily (2) History of alcohol abuse: PLAN: Patient says he has not drunk in several years. His labs are resembling alcoholic hepatitis. No alcohol level was drawn on admission. (3) Thrombocytopenia: PLAN: Thrombocytopenia likely secondary to splenic sequestration associated with cirrhosis and splenomegaly (4) Splenomegaly: PLAN: At this time he only has approximately 1 emesis secondary to hypertension. (5) Cirrhosis: PLAN: He has a high meld score of 25 secondary to decompensated Liver disease. I cannot tell if this is strictly decompensated liver disease. However with his high meld and high INR he has a very poor prognosis. I will start him on prednisone 40 mg a day. He should be seen by a transplant center. (6) Portal hypertension: (7) C. difficile diarrhea: PLAN: Continue 14-day course of vancomycin therapy.
[2022-04-04 19:07] LABS: HCV Quant. RNA PCR HCV Not Detected IU/mL (.); Hepatitis Be Ag Negative (Negative)
[2022-04-04] MEDS: predniSONE 20 MG Tablet 40 MG PO (20:11)
[2022-04-04] MEDS: APIXABAN 5 MG TABLET PO (20:12)
[2022-04-04 21:46] LABS: Hepatitis Be Ab Negative (Negative)
[2022-04-04 21:51] LABS: Hepatitis A IgM Antibody Negative (Negative)
[2022-04-05 02:49] VITALS: BP 126/74; PULSE 55; RESP 16; TEMP 37.1; O2SAT 95
[2022-04-05 03:18] VITALS: PULSE 55
[2022-04-05] MEDS: Vancomycin 125 MG/5 ML Susp PO.SYRINGE PO ×2 (05:31→13:46)
[2022-04-05 05:40] VITALS: BP 119/65; PULSE 62; RESP 18; TEMP 37; O2SAT 95
[2022-04-05 06:07] LABS: Hematocrit 24.4 % (40-54); Hemoglobin 7.9 g/dL (13.0-16.5); POSITIVE COUNT YES
[2022-04-05 06:39] LABS: Anion Gap 8 (5-15); BUN 25 mg/dL (7-18); BUN/Creat Ratio 17.7 RATIO (10-20); Calcium,Total 8.5 mg/dL (8.5-10.1); Chloride 104 mmol/L (98-107); Creatinine, Serum 1.41 mg/dL (0.70-1.30); EST Glomerular Filtration Rate 57 mL/min (>60); Est Glom Filt Rate - Afr Amer 69 mL/min (>60); Estimated Creatinine Clearance 77.81 ml/min; Glucose 127 mg/dL (74-106); Potassium 3.9 mmol/L (3.5-5.1); Sodium Level 137 mmol/L (136-145)
[2022-04-05 07:03] VITALS: PULSE 59
[2022-04-05 07:35] VITALS: O2SAT 95
--- NOTE | 2022-04-05 08:39 | DCINST_ITS ---
Discharge Instructions Diet Discharge Diet: Low fat / Low cholesterol Activity Discharge Activity: Return to Normal Activity Dressing / Incision Call your doctor if you observe: Fever of 101 or Higher, Shortness of breath, Dizziness, Fainting spells, Swelling in the ankles, Chest pain and Increased palpitations (irregular heartbeat) Follow Up Care Test Results: Test results from this visit will be discussed in further detail at your follow- up appointment, if applicable. Discharge Plan Admission Admit Date/Time: 04/02/22 21:49 Attending Provider: Tavo Wolf Primary Care Provider: Jovan Hamilton Consulting Providers: Rhina Varghese ; Jovan Singh Instructions Additional Instructions / Restrictions: Follow-up with your PCP to obtain outpatient CBC and BMP to monitor renal function as well as hemoglobin and your platelet count as these were both low. Discharge Orders/Prescriptions Prescriptions: New prednisone 20 mg Tablet 40 mg PO BREAKFAST 14 Days Qty: 28 0RF pantoprazole 40 mg Tablet,Delayed Release (Dr/Ec) 40 mg PO BID 30 Days Qty: 60 0RF Firvanq 25 mg/mL Recon Soln 125 mg PO Q6 12 Days Qty: 240 0RF Continued metoprolol succinate 100 mg tablet extended release 24 hr 100 mg PO DAILY Label Comments: TAKE 1 TABLET BY MOUTH ONCE DAILY tamsulosin 0.4 mg capsule 0.4 mg PO DAILY Label Comments: TAKE 1 CAPSULE BY MOUTH ONCE DAILY losartan-hydrochlorothiazide 100-12.5 mg tablet 1 tab PO DAILY Label Comments: TAKE 1 TABLET BY MOUTH ONCE DAILY potassium chloride 10 MEQ tablet,ER particles/crystals 20 meq PO DAILY Label Comments: supplement Held furosemide 40 mg tablet 40 mg PO DAILY Hold Instructions: Resume on 04/08/22. Label Comments: TAKE 1 TABLET BY MOUTH ONCE DAILY Eliquis 5 mg tablet 5 mg PO BID Hold Instructions: Resume on 04/08/22. Label Comments: TAKE 1 TABLET BY MOUTH TWICE DAILY Referrals / Follow Up: Lida Smith NP-C [NON-STAFF] - 04/11/22 10:00 am FriendCornelius DO [STAFF PHYSICIAN] - Within 2 Weeks Disposition Disposition (needs filled in before D/C Order can be placed): Home, Self Care
--- NOTE | 2022-04-05 08:45 | DS.PCM_ITS ---
Providers Date of Admission: 04/02/22 Primary Care Physician: Dr. Jovan Hamilton MD Consultations 04/02/22 23:00 Consult: Gastroenterology Routine Consulting Provider: [facility] Reason for Consult: GI bleed EMERGENT Consult: No MD Notified: Yes Date Notified: 04/02/22 Time Notified: 22:03 Method of Notification: Verbal Reason For Visit: GI BLEED, ANEMIA Diagnosis Discharge Diagnosis (1) Hyperbilirubinemia: Status: Acute Code(s): E80.6 - Other disorders of bilirubin metabolism Medications at Discharge Home Medications apixaban 5 mg tablet (Eliquis) 5 mg PO BID 04/02/22 furosemide 40 mg tablet 40 mg PO DAILY 04/02/22 losartan 100 mg-hydrochlorothiazide 12.5 mg tablet 1 tab PO DAILY 04/02/22 metoprolol succinate 100 mg tablet,extended release 24 hr 100 mg PO DAILY 04/02/22 potassium chloride 10 mEq tablet,extended release(part/cryst) 20 meq PO DAILY 04/02/22 tamsulosin 0.4 mg capsule 0.4 mg PO DAILY 04/02/22 pantoprazole 40 mg tablet,delayed release 40 mg PO BID 30 days #60 tabs 04/05/22 prednisone 20 mg tablet 40 mg PO BREAKFAST 14 days #28 tabs 04/05/22 vancomycin 25 mg/mL oral solution (Firvanq) 125 mg (5 mL) PO Q6 12 days #240 mL 04/05/22 Hospital Course Operations None Procedures Blood transfusion and EGD Summary of Care Provided Minutes Spent on Discharge: 42 Hospital Course: Per HPI: CHENCHO MACARIO, is a 51 M who presented to the emergency department at [facility] on 04/02/2022 secondary to nausea, vomiting, and diarrhea.? The patient reports that it started approximately 2 days ago.? He states he has had multiple episodes of liquidy/watery diarrhea that he describes as blackish brown.? He states he has had bowel movements every hour and indicates that anytime he eats he has a bowel movement approximately 45 minutes following.? He has had no recent exposures to any antibiotics or anybody that is been ill.? 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 He also reports that he has had some coffee-ground emesis periodically.? He evidently spoke to a friend and told them what was going on and told him to come get evaluated because they were concerned for bleeding in his GI tract.? The patient takes Eliquis at baseline for atrial fibrillation.? He denied any lightheadedness or dizziness.? He does indicate he is recently been referred to a GI doctor because of some concern for cirrhosis/fatty liver with abnormal LFTs.? His appetite ebbs and flows.? His states that he is changed dramatically since approximately Lyn time with regards to his weight and his oral intake.? The patient states he is lost approximately 12 pounds if that in the last year.? He had previously been on Protonix but it was discontinued. Vital signs the emergency department showed a temperature of 98.7, heart rate of 69, blood pressure 132/64, respiratory rate of 14, and oxygen saturation of 97% on room air.? His CBC showed normal white count but a hemoglobin of 7.6 with an MCV of 106 and a platelet count of 70,000.? In November of this past year lab was performed at a different institution and he was found to have a hemoglobin at approximately 12.5 and a platelet count of 125,000 at that time.? His chemistry panel showed a potassium of 2.9, BUN of 38 and a serum creatinine of 124.? His renal function is elevated compared to baseline.? His total bilirubin was 4.6 his AST was 74 and his ALT was 41.? A lipase was performed and found to be 123.? A CT of his abdomen pelvis was performed and showed diffuse hepatocellular disease and diffuse mesenteric edema with mild ascites, recannulization of the umbilical vein, mild diverticular changes in the colon without evidence of diverticulitis, a contracted thick-walled gallbladder with tiny calcified stones or polyp. Hospital Course: 1. Acute blood loss anemia secondary to an upper GI bleed from gastric AVMs/C. difficile colitis/cirrhosis?51-year-old male with previous history of alcohol abuse and presenting with what appears to be an upper GI bleed. Had an EGD w [facility] demonstrated multiple AVMs in his stomach which were treated by GI. His hemoglobin today is stable at 7.9. His creatinine is stable as well. He does have a history of cirrhosis and it does appear potentially to be alcoholic cirrhosis however further studies need to be done as an outpatient. In the meantime his diarrhea has discontinued and he is continuing on his p.o. vancomycin for 14 days total as an outpatient to treat his C. difficile. He is on Eliquis secondary to previous A. 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 In the meantime given his recent GI bleed and his low hemoglobin will hold his Eliquis as his risk for stroke is extremely small, he can restart his Eliquis on Friday. Given his kidney function will also hold his Lasix until Friday as well. I do recommend that he follow-up with his PCP for CBC and a BMP. I did discuss with him the plan for discharge today he expressed understanding of the risk benefits of going home and would like to go home today. He will need to follow-up with GI as an outpatient as well. In the meantime we will continue with prednisone therapy at the recommendation for 2 weeks as well as a PPI. 2. Atrial fibrillation, hypertension are all chronic medical conditions which complicate his care. His home medications were continued where appropriate Physical Exam Const alert, oriented x3 and no apparent distress General Appearance: cooperative HEENT normocephalic and moist oral mucous membranes Eyes PERRL, EOMs intact bilaterally and conjunctivae normal Neck supple and no JVD Resp normal respiratory effort, no retractions, no use of accessory muscles and clear to auscultation bilaterally Auscultation: Negative for crackles, rales, rhonchi or wheezes Cardio regular rate, regular rhythm, S1 normal heart sound, S2 normal heart sound and no murmurs GI soft to palpation, non-tender and non-distended; Negative for hepatosplenomegaly Extremity no clubbing, cyanosis or edema Skin no rashes or lesions noted Neuro no focal motor deficits and no sensory deficits noted Psych affect normal Appearance: appropriate Weight / BMI Weight Weight: 250 lb 7.122 oz Body Mass Index (BMI) 30.4 ABG / Lab / Microbiology Data Result Diagrams: 04/05/22 05:16 04/05/22 05:16 Laboratory: Laboratory Results - last 24 hr 04/02/22 22:20: Hepatitis Be Antibody Negative, Hepatitis Be Antigen Negative, HCV RNA Quant (PCR) HCV Not Detected, HCV RNA (PCR) IU log10 TNP, HCV RNA PCR Test Info Comment 04/03/22 05:52: Hepatitis A IgM Ab Negative, Hepatitis A Ab Total Negative 04/05/22 05:16: Hgb 7.9 L, Hct 24.4 L 04/05/22 05:16: Sodium 137, Potassium 3.9, Chloride 104, Carbon Dioxide 25.0, Anion Gap 8, BUN 25 H, Creatinine 1.41 H, Estim Creat Clear Calc 77.81, Est GFR (MDRD) Af Amer 69, Est GFR (MDRD) Non-Af 57 L, BUN/Creatinine Ratio 17.7, Glucose 127 H, Calcium 8.5 Microbiology: Microbiology 04/03/22 02:04 Stool C. difficile GDH Antigen & Toxins - Final 04/03/22 02:04 Stool C. difficile DNA Amplification - Final 04/03/22 02:04 Stool Enteric Bacteriology - Final 04/02/22 21:00 Stool Stool Occult Blood (DAVIAN) - Final D/C Instructions Discharge Diet: Low fat / Low cholesterol Call your doctor if you observe: Fever of 101 or Higher, Shortness of breath, Dizziness, Fainting spells, Swelling in the ankles, Chest pain and Increased palpitations (irregular heartbeat) Meaningful Use Info Meaningful Use Diagnoses (Choose all that apply): None applicable Discharge Plan Admission Admit Date/Time: 04/02/22 21:49 Attending Provider: Tavo Wolf Primary Care Provider: Jovan Hamilton Consulting Providers: Rhina Varghese ; Jovan Singh Instructions Additional Instructions / Restrictions: Follow-up with your PCP to obtain outpatient CBC and BMP to monitor renal function as well as hemoglobin and your platelet count as these were both low. Discharge Orders/Prescriptions Prescriptions: New prednisone 20 mg Tablet 40 mg PO BREAKFAST 14 Days Qty: 28 0RF pantoprazole 40 mg Tablet,Delayed Release (Dr/Ec) 40 mg PO BID 30 Days Qty: 60 0RF Firvanq 25 mg/mL Recon Soln 125 mg PO Q6 12 Days Qty: 240 0RF Continued metoprolol succinate 100 mg tablet extended release 24 hr 100 mg PO DAILY Label Comments: TAKE 1 TABLET BY MOUTH ONCE DAILY tamsulosin 0.4 mg capsule 0.4 mg PO DAILY Label Comments: TAKE 1 CAPSULE BY MOUTH ONCE DAILY losartan-hydrochlorothiazide 100-12.5 mg tablet 1 tab PO DAILY Label Comments: TAKE 1 TABLET BY MOUTH ONCE DAILY potassium chloride 10 MEQ tablet,ER particles/crystals 20 meq PO DAILY Label Comments: supplement Held furosemide 40 mg tablet 40 mg PO DAILY Hold Instructions: Resume on 04/08/22. Label Comments: TAKE 1 TABLET BY MOUTH ONCE DAILY Eliquis 5 mg tablet 5 mg PO BID Hold Instructions: Resume on 04/08/22. Label Comments: TAKE 1 TABLET BY MOUTH TWICE DAILY Referrals / Follow Up: Lida Smith NP-C [NON-STAFF] - 04/11/22 10:00 am Cornelius Samuel DO [STAFF PHYSICIAN] - Within 2 Weeks Disposition Disposition (needs filled in before D/C Order can be placed): Home, Self Care Charges/Coding Visit Charges Inpatient E&M: 65494 Disch Hosp
[2022-04-05] MEDS: Pantoprazole Sodium 40 MG Tablet PO (10:37)
[2022-04-05] MEDS: Tamsulosin HCl 0.4 MG Capsule PO (10:37)
[2022-04-05 10:40] VITALS: BP 107/51; PULSE 67; RESP 18; TEMP 36.6; O2SAT 92
[2022-04-05] MEDS: predniSONE 20 MG Tablet 40 MG PO (11:26)
--- NOTE | 2022-04-05 15:51 | PN_ITS ---
Subjective Subjective Patient is that he is feeling a lot better. He seems more clear today. He is answering questions appropriately. Objective Data Objective Data Vital Signs: Vital Signs Temp Pulse Resp BP Pulse Ox 97.9 F 67 18 107/51 L 92 04/05/22 10:40 04/05/22 10:40 04/05/22 10:40 04/05/22 10:40 04/05/22 10:40 Oxygen Delivery Method Room Air Weight: 250 lb 7.122 oz Body Mass Index (BMI) 30.4 Intake & Output: Intake and Output for Last 24 Hours 04/03/22 04/04/22 04/05/22 23:59 23:59 23:59 Intake Total 2451.46 / 2451.46 1690 / 1690 750 / 750 Balance 2451.46 / 2451.46 1690 / 1690 750 / 750 Lab / Micro Data Result Diagrams: 04/05/22 05:16 04/05/22 05:16 Labs: Laboratory Results - last 24 hr 04/02/22 22:20: Hepatitis Be Antibody Negative, Hepatitis Be Antigen Negative, HCV RNA Quant (PCR) HCV Not Detected, HCV RNA (PCR) IU log10 TNP, HCV RNA PCR Test Info Comment 04/03/22 05:52: Hepatitis A IgM Ab Negative, Hepatitis A Ab Total Negative 04/05/22 05:16: Hgb 7.9 L, Hct 24.4 L 04/05/22 05:16: Sodium 137, Potassium 3.9, Chloride 104, Carbon Dioxide 25.0, Anion Gap 8, BUN 25 H, Creatinine 1.41 H, Estim Creat Clear Calc 77.81, Est GFR (MDRD) Af Amer 69, Est GFR (MDRD) Non-Af 57 L, BUN/Creatinine Ratio 17.7, Glucose 127 H, Calcium 8.5 Micro: Microbiology 04/03/22 02:04 Stool C. difficile GDH Antigen & Toxins - Final 04/03/22 02:04 Stool C. difficile DNA Amplification - Final 04/03/22 02:04 Stool Enteric Bacteriology - Final 04/02/22 21:00 Stool Stool Occult Blood (DAVIAN) - Final Physical Exam Const alert, oriented x3 and no apparent distress General Appearance: cooperative HEENT normocephalic and moist oral mucous membranes Eyes PERRL, EOMs intact bilaterally and conjunctivae normal Neck supple and no JVD Resp normal respiratory effort, no retractions, no use of accessory muscles and clear to auscultation bilaterally Auscultation: Negative for crackles, rales, rhonchi or wheezes Cardio regular rate, regular rhythm, S1 normal heart sound, S2 normal heart sound and no murmurs GI soft to palpation, non-tender and non-distended; Negative for hepatosplenomegaly Extremity no clubbing, cyanosis or edema Skin no rashes or lesions noted Neuro no focal motor deficits and no sensory deficits noted Psych affect normal Appearance: appropriate Assessment & Plan Assessment/Plan (1) C. difficile diarrhea: PLAN: Patient will finish up a 14-day course of vancomycin for community-acquire d C. difficile. (2) Cirrhosis: PLAN: Acute upper GI bleed was secondary to severe gastropathy resulting in oozing from the lining of the stomach.? He also was discovered to have gastric antral vascular ectasia along with telangiectasias and AVMs in upper GI tract particularly the stomach.? These were treated endoscopically.? He was on octreotide, ceftriaxone and PPI drip.? Octreotide can be stopped and Can Be Stopped.? (3) GI bleed: (4) Hypokalemia: PLAN: Hypokalemia Has resolved With administration after the adinisration of Charges/Coding Visit Charges Inpatient E&M: 52466 [facility] Hosp L3
== END 2022-04-05 14:52 | disposition home or self-care (01) | DRG 378 ==
LOC: ED 21:58 → PCU 22:08
PROVIDERS: Internal Medicine; Internal Medicine Gastroenterology; Admitting Provider Internal Medicine; Emergency Provider Student in an Organized Health Care Education/Training Program; PCP Family Medicine; Visit Provider Family Medicine
PROC: 0DJ08ZZ Inspection of Upper Intestinal Tract, Via Natural or Artificial Opening Endoscopic (ICD-10-PCS; CPT 43235; principal; 2022-04-03 13:10)
DX: K31.811 Angiodysplasia of stomach and duodenum with bleeding (principal); A04.72 Enterocolitis due to Clostridium difficile, not specified as recurrent; K76.6 Portal hypertension; D62 Acute posthemorrhagic anemia; K70.31 Alcoholic cirrhosis of liver with ascites; D69.6 Thrombocytopenia, unspecified; I85.00 Esophageal varices without bleeding; I48.0 Paroxysmal atrial fibrillation; E80.6 Other disorders of bilirubin metabolism; E87.6 Hypokalemia; D53.9 Nutritional anemia, unspecified; K76.0 Fatty (change of) liver, not elsewhere classified; D69.59 Other secondary thrombocytopenia; K57.30 Diverticulosis of large intestine without perforation or abscess without bleeding; K31.89 Other diseases of stomach and duodenum; I78.1 Nevus, non-neoplastic; K26.9 Duodenal ulcer, unspecified as acute or chronic, without hemorrhage or perforation; R16.1 Splenomegaly, not elsewhere classified; Z87.891 Personal history of nicotine dependence
CPT/HCPCS: 36415; 74177; 80048; 80053; 80076; 82274; 82728; 83540; 83550; 83690; 83735; 84100; 84443; 85014; 85018; 85025; 85610; 86707; 86708; 86709; 86803; 86850; 86900; 86901; 86920; 86922; 87350; 87493; 87506; 87522; 93005; 97802; 99283; 99406; J7030; J7040; J7050; J7120; P9016; Q9967; A4216; J2405; J2916; J3490

== ENCOUNTER 2022-05-09 12:12 | Inpatient (IN) | payer OTHER, SELFPAY ==
[2022-05-09 12:13] VITALS: BP 130/52; PULSE 79; RESP 22; TEMP 37.7; O2SAT 98; BMI 35.9
--- NOTE | 2022-05-09 12:19 | EDS_ITS ---
HPI <ELAINE Reyna - Last Filed: 05/09/22 13:47> History of Present Illness Chief Complaint: Edema Narrative Narrative: 51-year-old male with past medical history of GERD, GIB, cirrhosis presents with edema. He was seen here a month ago with diarrhea and was found to have C. difficile and completed p.o. antibiotics. He also had a GI bleed and EGD showing severe portal hypertensive gastropathy. AVMs were treated endoscopically. He says this was a new diagnosis of cirrhosis. He restarted Eliquis after week and has had no further vomiting, diarrhea or bloody stool. Over the last month he has had progressive edema of his lower extremities now extending to his thighs, scrotum, and lower abdomen. He denies shortness of breath. He is prescribed Lasix 40 mg once daily but increased it to 1.5 tablets in the morning which has not helped. Today he had a follow-up with his primary care who sent him to the ED. Patient states he has not drank alcohol since the middle of March. [facility] <ELAINE Reyna - Last Filed: 05/09/22 13:47> [facility] Medical History (Updated 05/09/22 @ 13:[address] Satish Malone MD) Afib Cirrhosis GI bleed History of alcohol abuse Hyperbilirubinemia Macrocytic anemia Mild intermittent asthma Portal hypertension Resistant hypertension Splenomegaly Thrombocytopenia Home Medications apixaban 5 mg tablet (Eliquis) 5 mg PO BID 04/02/22 [History Last Taken Unknown] furosemide 40 mg tablet 40 mg PO DAILY 04/02/22 [History Last Taken Unknown] losartan 100 mg-hydrochlorothiazide 12.5 mg tablet 1 tab PO DAILY 04/02/22 [History Last Taken Unknown] metoprolol succinate 100 mg tablet,extended release 24 hr 100 mg PO DAILY 04/02/22 [History Last Taken Unknown] potassium chloride 10 mEq tablet,extended release(part/cryst) 20 meq PO DAILY 04/02/22 [History Last Taken Unknown] pantoprazole 40 mg tablet,delayed release 40 mg PO BID 30 days #60 tabs 04/05/22 [Rx Last Taken Unknown] Allergy/AdvReac Type Severity Reaction Status Date / Time fish derived Allergy Anaphylaxis Verified 05/09/22 12:15 Penicillins Allergy Hives Verified 05/09/22 12:15 Family History (Updated 04/02/22 @ 23:[address] Rhina Varghese DO) Other Aortic valve disease CAD (coronary artery disease) COPD (chronic obstructive pulmonary disease) Cancer Hyperlipidemia Hypertension Surgical History History of mandibular surgery S/P hernia surgery Social History (Updated 04/02/22 @ 23:[address] Rhina Varghese DO) household members: spouse housing: house current occupational status: employed current occupation: Works in the [employer] business Smoking Status: Former smoker Smokeless tobacco user: chewing tobacco how long ago did patient quit smokin yrs alcohol intake: current alcohol intake frequency: a few times a week Alcohol type: beer details: Used to drink approximately 1 case daily for about 10 years-quit 20 yrs ago substance use type: does not use ROS <ELAINE Reyna - Last Filed: 05/09/22 13:47> ROS ED ROS Narrative Constitutional: Negative for fever, chills, malaise. Eyes: Negative for visual change. ENT: Negative for sore throat, ear pain, rhinorrhea. CVS: Negative for palpitations, chest pain, syncope. Respiratory: Negative for shortness of breath, cough, orthopnea. GI: Negative for abdominal pain, nausea, vomiting, diarrhea, constipation, melena, hematochezia. : Negative for dysuria, hematuria or frequency. Neuro: Negative for headache, motor/sensory dysfunction. Skin: Negative for rash, abscess, or wound. Musc: Positive for edema. Negative for joint pain, trauma. Heme: Negative for easy bruising, bleeding, lymphadenopathy. EXAM <ELAINE Reyna - Last Filed: 05/09/22 13:47> Physical Exam Narrative Exam Narrative: CONST: Patient sitting in no acute distress. EYES: Scleral icterus. ENT: Normal inspection, moist mucous membranes. NECK: Normal inspection. RESP: No respiratory distress, CTAB. CVS: Regular rate and rhythm, no murmur, no gallop. ABD: Soft and nontender, no guarding or rebound, edema of the lower abdomen. SKIN: Mild jaundice. Small abrasion right lower medial calf, no surrounding er ythema. EXTREMITIES: 2+ pitting edema of entire bilateral lower extremities, edema of scrotum and lower abdomen. NEURO: Oriented x4. PSYCH: Normal affect. Const Vital Signs: 05/09/22 12:13 Temperature 99.9 F H Temperature Source Temporal Pulse Rate 79 Respiratory Rate 22 H Blood Pressure 130/52 H Blood Pressure Mean 78 Pulse Ox 98 Oxygen Delivery Method Room Air <Dr. Satish Malone MD - Last Filed: 05/09/22 13:50> Physical Exam Const Vital Signs: 05/09/22 12:13 Temperature 99.9 F H Temperature Source Temporal Pulse Rate 79 Respiratory Rate 22 H Blood Pressure 130/52 H Blood Pressure Mean 78 Pulse Ox 98 Oxygen Delivery Method Room Air MDM <ELAINE Reyna - Last Filed: 05/09/22 13:47> [facility] MDM Narrative Medical decision making narrative: 51-year-old male with past medical history of A. fib, cirrhosis, GI bleed treated 1 month ago and presents with edema. He appears well and nontoxic. Vital signs unremarkable. He has mild scleral icterus and jaundice. Moist mucous membranes. Heart regular. Lungs clear. He has anasarca with edema of the lower abdomen and scrotum and lower legs. Labs show macrocytic anemia at 7.3. This is slightly down from 7.9 at discharge last month. Electrolytes are unremarkable, BUN/creatinine 28/1.85 which is slightly worse than previous. Total bilirubin of 4.0 is stable. AST 58, ALT 37, low albumin at 2.5. I consulted Dr. Samuel who recommended albumin 50 mg now and then another 50 mg in 4 hours. After that begin Bumex 1 mg every 12 hours. Case was discussed with the hospitalist and he was admitted in stable condition. Diagnoses 1. Cirrhosis due to alcohol 2. Anemia 3. Anasarca Lab Data Attestation: I reviewed the patient's lab results. Labs: Laboratory Results - last 24 hr 05/09/22 05/09/22 05/09/22 12:45 12:45 12:45 WBC 7.5 RBC 2.07 L Hgb 7.3 L Hct 22.8 L MCV 110.1 H MCH 35.3 H MCHC 32.0 RDW Std Deviation 62.1 H RDW Coeff of Chris 15.4 H Plt Count 104 L MPV 9.9 Immature Gran % (Auto) 0.300 Neut % (Auto) 46.2 L Lymph % (Auto) 32.0 Barber % (Auto) 18.4 H Eos % (Auto) 2.7 Baso % (Auto) 0.4 Absolute Neuts (auto) 3.5 Absolute Lymphs (auto) 2.40 Nucleated RBC % 0 PT 20.9 H INR 1.8 Sodium 139 Potassium 3.4 L Chloride 107 Carbon Dioxide 24.0 Anion Gap 8 BUN 28 H Creatinine 1.85 H Estim Creat Clear Calc 59.30 Est GFR (MDRD) Af Amer 50 L Est GFR (MDRD) Non-Af 41 L BUN/Creatinine Ratio 15.1 Glucose 110 H Calcium 8.2 L Total Bilirubin 4.00 H AST 58 H ALT 37 Alkaline Phosphatase 84 Total Protein 6.8 Albumin 2.5 L Globulin 4.3 H Albumin/Globulin Ratio 0.6 L Radiography Diagnostic Testing: Clinical Impression(s) from Imaging Studies Chest X-Ray 05/09/22 12:36 IMPRESSION: Normal x-ray examination of the chest. Electronically Signed: Ulises Jameson MD at 13:27 EDT , ED attending interpretation shows normal heart size, no acute infiltrate, edema, or effusion. <Dr. Satish Malone MD - Last Filed: 05/09/22 13:50> [facility] MDM Narrative Medical decision making narrative: 51-year-old male with past medical history of A. fib, cirrhosis, GI bleed treated 1 month ago and presents with edema. He appears well and nontoxic. Vital signs unremarkable. He has mild scleral icterus and jaundice. Moist mucous membranes. Heart regular. Lungs clear. He has anasarca with edema of the lower abdomen and scrotum and lower legs. Labs show macrocytic anemia at 7.3. This is slightly down from 7.9 at discharge last month. Electrolytes are unremarkable, BUN/creatinine 28/1.85 which is slightly worse than previous. Total bilirubin of 4.0 is stable. AST 58, ALT 37, low albumin at 2.5. I consulted Dr. Samuel who recommended albumin 50 mg now and then another 50 mg in 4 hours. After that you can begin Bumex 1 mg every 12 hours. I have personally performed a face to face assessment of the patient and have reviewed the KISHAN Note. I performed a substantive portion of the visit including all aspects of the following. My lopez findings include: History is remarkable for cirrhosis due to alcohol. Patient not had a drink since March. He presents because of worsening edema and spite of compliance with medication. He was sent to the ER by Dr. Samuel. He denies fever, chills night sweats. He does report port weight gain. He does report dyspnea on exertion. He does endorse darker colored urine. He denies change in color of his stool. He did have a recent GI bleed. His stool is not black or maroon. Exam is remarkable for patient being jaundiced. He has anasarca. He does appear pale with pale conjunctive a. There is erythema in the crease of the palm. Lungs revealed decreased breath sounds. Heart is regular. Medical Decision Making patient with cirrhosis and ascites. Will obtain work-up to assess albumin, renal function, H&H. INR was obtained to assess liver function. Other additions or changes: Case was discussed with Dr. Samuel who recommended albumin and Bumex. Patient was admitted to the hospitalist, Dr. Varghese. Patient and were made aware that he will be admitted. Lab Data Labs: Laboratory Results - last 24 hr 05/09/22 05/09/22 05/09/22 12:45 12:45 12:45 WBC 7.5 RBC 2.07 L Hgb 7.3 L Hct 22.8 L MCV 110.1 H MCH 35.3 H MCHC 32.0 RDW Std Deviation 62.1 H RDW Coeff of Chris 15.4 H Plt Count 104 L MPV 9.9 Immature Gran % (Auto) 0.300 Neut % (Auto) 46.2 L Lymph % (Auto) 32.0 Barber % (Auto) 18.4 H Eos % (Auto) 2.7 Baso % (Auto) 0.4 Absolute Neuts (auto) 3.5 Absolute Lymphs (auto) 2.40 Nucleated RBC % 0 PT 20.9 H INR 1.8 Sodium 139 Potassium 3.4 L Chloride 107 Carbon Dioxide 24.0 Anion Gap 8 BUN 28 H Creatinine 1.85 H Estim Creat Clear Calc 59.30 Est GFR (MDRD) Af Amer 50 L Est GFR (MDRD) Non-Af 41 L BUN/Creatinine Ratio 15.1 Glucose 110 H Calcium 8.2 L Total Bilirubin 4.00 H AST 58 H ALT 37 Alkaline Phosphatase 84 Total Protein 6.8 Albumin 2.5 L Globulin 4.3 H Albumin/Globulin Ratio 0.6 L Radiography Diagnostic Testing: Clinical Impression(s) from Imaging Studies Chest X-Ray 05/09/22 12:36 IMPRESSION: Normal x-ray examination of the chest. Electronically Signed: Ulises Jameson MD at 13:27 EDT , Discharge Plan Triage Chief Complaint: Edema ED Midlevel Provider: Katy Molina ED Provider: Satish Malone Dx/Rx/DC Orders Clinical Impression: Anasarca, Ascites due to chronic alcoholic hepatitis, Hypoalbuminemia, Chronic renal insufficiency, stage II (mild), Anemia, iron deficiency Prescriptions: No Action furosemide 40 mg tablet 40 mg PO DAILY Hold Instructions: Resume on 04/08/22. Label Comments: TAKE 1 TABLET BY MOUTH ONCE DAILY metoprolol succinate 100 mg tablet extended release 24 hr 100 mg PO DAILY Label Comments: TAKE 1 TABLET BY MOUTH ONCE DAILY losartan-hydrochlorothiazide 100-12.5 mg tablet 1 tab PO DAILY Label Comments: TAKE 1 TABLET BY MOUTH ONCE DAILY Eliquis 5 mg tablet 5 mg PO BID Hold Instructions: Resume on 04/08/22. Label Comments: TAKE 1 TABLET BY MOUTH TWICE DAILY potassium chloride 10 MEQ tablet,ER particles/crystals 20 meq PO DAILY Label Comments: supplement pantoprazole 40 mg Tablet,Delayed Release (Dr/Ec) 40 mg PO BID 30 Days Qty: 60 0RF Primary Care Provider: Jovan Hamilton Referrals: Jovan Hamilton MD [Primary Care Provider] - Disposition Disposition: Acute Care Hospital [facility]
--- NOTE | 2022-05-09 12:36 | RAD_ITS ---
STUDY: X-RAY CHEST REASON FOR EXAM: Male, 51 years old. Dyspnea TECHNIQUE: Single AP portable view of the chest. COMPARISON: Comparison is made with prior study 06/12/2015. FINDINGS: The lungs are clear and expanded. There is no demonstrated pleural abnormality. Normal size heart. Normal mediastinum and kumar. Normal visualized pulmonary arteries. Normal visualized aortic arch and descending thoracic aorta. There are degenerative changes of the visualized thoracic spine. Normal visualized ribs, clavicles, and shoulders. There is no demonstrated abnormality of the visualized soft tissue structures of the upper abdomen. RAD/Chest 1 View (Portable) IMPRESSION: Normal x-ray examination of the chest. Electronically Signed: Ulises Jameson MD at 13:27 EDT ,
[2022-05-09 12:51] LABS: Absolute Neutrophil Count 3.5 X10^3/uL (2.0-7.7); Basophil# 0.03 X10^3/uL; Basophil% 0.4 % (0-1); Eosinophils% 2.7 % (0-5); Hematocrit 22.8 % (40-54); Hemoglobin 7.3 g/dL (13.0-16.5); Mean Corpuscular Hgb 35.3 pg (27.0-32.0); Mean Corpuscular Volume 110.1 fL (80-94); Mean Platelet Vol. 9.9 fl (6.2-12.0); Monocyte# 1.38 X10^3/uL; Monocyte% 18.4 % (0-10); NRBC Flagged by Analyzer 0 % (0-5); Neutrophil # 3.47 X10^3/uL (2.7-7.7); Neutrophil % 46.2 % (47-70); Platelet Count 104 K/mm3 (150-450); RBC Distribution Width CV 15.4 % (11.6-14.6); RBC Distribution Width SD 62.1 fl (35.1-43.9); Red Blood Count 2.07 M/mm3 (4.6-6.2); White Blood Count 7.5 K/mm3 (4.4-11.0)
[2022-05-09 13:05] LABS: International Normalized Ratio 1.8; Prothrombin Time (Protime)PT. 20.9 SECONDS (11.7-14.9)
[2022-05-09 13:06] LABS: ALB/GLOB Ratio 0.6 RATIO (0.9-2.4); AST(SGOT) 58 U/L (15-37); Alanine Aminotransfer ALT/SGPT 37 U/L (16-61); Albumin, Serum 2.5 g/dL (3.2-5.0); Alkaline Phosphatase 84 U/L (45-117); Anion Gap 8 (5-15); BUN 28 mg/dL (7-18); BUN/Creat Ratio 15.1 RATIO (10-20); Calcium,Total 8.2 mg/dL (8.5-10.1); Chloride 107 mmol/L (98-107); Creatinine, Serum 1.85 mg/dL (0.70-1.30); EST Glomerular Filtration Rate 41 mL/min (>60); Est Glom Filt Rate - Afr Amer 50 mL/min (>60); Globulin 4.3 g/dL (2.2-4.2); Glucose 110 mg/dL (74-106); Potassium 3.4 mmol/L (3.5-5.1); Protein, Total 6.8 g/dL (6.4-8.2); Sodium Level 139 mmol/L (136-145)
[2022-05-09] MEDS: Ondansetron 4 MG/2 ML Vial IV (13:45)
[2022-05-09] MEDS: Morphine 4 MG/ML Syringe IV (13:45)
[2022-05-09 14:14] VITALS: BP 110/49; PULSE 67; RESP 16; TEMP 36.6; O2SAT 97
[2022-05-09 14:27] LABS: Urine Sodium < 5 mmol/L (Not Establ.)
[2022-05-09 14:29] VITALS: PULSE 78; RESP 18
[2022-05-09 15:00] VITALS: BMI 34.9
[2022-05-09 15:04] VITALS: BP 113/54; PULSE 69; RESP 18; TEMP 36.7; O2SAT 98
--- NOTE | 2022-05-09 15:07 | PCM.HP.STD ---
[facility] - General General Date of Admission: 05/09/22 Date of Service: 05/09/22 Chief Complaint: Anasarca [facility] Narrative CHENCHO MACARIO, is a 51 M who presented to the emergency department [facility] on 05/09/2022 with a chief complaint of progressively worsening edema. The patient reports initially it was in his legs and now has extended up into his thighs scrotum and lower abdomen. He has been taking 60 mg of Lasix a day plus losartan hydrochlorothiazide. Family reports markedly watching his salt intake however it does not sound like to been watching his fluid intake all that strictly. 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 He had a follow-up with his primary care physician today and they sent him to the emergency department. He said no alcohol intake since . He has a follow-up to see Dr. Samuel. He was recently admitted here from 04/02/2022 through 04/05/2022 at which time he was found to have a new diagnosis of cirrhosis. His meld score was 25 at that time. He complains of his legs being painful to touch and also complains of marked scrotal edema. He said that his legs have gotten so heavy its difficult for him to move. He denies any shortness of breath, chest pain, nausea, vomiting, diarrhea, hematemesis, hematochezia, melena. He said no tingling numbness or weakness either. Vital signs on presentation emergency department show temperature of 98.1, blood pressure of 113/54, pulse of 69, respiratory rate of 18, oxygen saturation are 98% room air. CBC shows a stable anemia that is macrocytic and a stable thrombocytopenia. Coags show an INR of 1.8. Chemistry shows mild hypokalemia with potassium of 3.4, worsening renal function with a BUN of 28 and a serum creatinine of 1.85. His AST is mildly elevated at 58 with a normal ALT and his bilirubin is elevated for which appears to be baseline as well. He has markedly low albumin at 2.5. Urine sodium is less than 5 indicating prerenal azotemia. Chest x-ray was unremarkable for any acute findings. [facility] Medical History Afib Chronic anemia Cirrhosis Former smoker GI bleed History of alcohol abuse Hyperbilirubinemia Hypertension Hypoalbuminemia Irregular heart beat Macrocytic anemia Mild intermittent asthma Pancreatitis Portal hypertension Resistant hypertension Splenomegaly Stage 3b chronic kidney disease (CKD) Thrombocytopenia Home Medications apixaban 5 mg tablet (Eliquis) 5 mg PO BID 04/02/22 [History Last Taken Unknown] furosemide 40 mg tablet 40 mg PO DAILY 04/02/22 [History Last Taken Unknown] losartan 100 mg-hydrochlorothiazide 12.5 mg tablet 1 tab PO DAILY 04/02/22 [History Last Taken Unknown] metoprolol succinate 100 mg tablet,extended release 24 hr 100 mg PO DAILY 04/02/22 [History Last Taken Unknown] potassium chloride 10 mEq tablet,extended release(part/cryst) 20 meq PO DAILY supplement 04/02/22 [History Last Taken Unknown] pantoprazole 40 mg tablet,delayed release 40 mg PO BID 30 days #60 tabs 04/05/22 [Rx Last Taken Unknown] albuterol sulfate 90 mcg/actuation aerosol inhaler 2 inh inhalation Q4H PRN PRN breathing 05/09/22 [History Last Taken Unknown] Allergy/AdvReac Type Severity Reaction Status Date / Time fish derived Allergy Anaphylaxis Verified 05/09/22 12:15 Penicillins Allergy Hives Verified 05/09/22 12:15 Family History (Updated 05/09/22 @ 15:[address] Rhina Varghese DO) Father Liver disease Other Aortic valve disease CAD (coronary artery disease) COPD (chronic obstructive pulmonary disease) Cancer Hyperlipidemia Hypertension Surgical History History of mandibular surgery S/P hernia surgery Social History (Updated 05/09/22 @ 15:[address] Rhina Varghese DO) household members: spouse housing: house current occupational status: employed current occupation: Works in the [employer] business Smoking Status: Former smoker Smokeless tobacco user: chewing tobacco how long ago did patient quit smokin yrs alcohol intake: former details: Last drink was 2021 substance use type: does not use ROS Constitutional Constitutional: Reports fatigue and weakness; Denies anorexia, change in weight, chills, fever(s), malaise, night sweats or other Eyes Eyes: Reports change in eye color; Denies blurry vision, change in vision, discharge from eye(s), double vision, erythema, eye pain, loss of vision or other ENT HEENT: Denies abnormal hearing, dysphagia, ear pain, epistaxis, headache(s), hearing loss, nasal congestion, nasal discharge, post nasal drip, sinus pressure, sore throat or other Cardiovascular Cardiovascular: Reports edema and other Details: Severe scrotal edema ; Denies chest pain, claudication, dyspnea on exertion, lightheadedness, orthopnea, palpitations, paroxysmal nocturnal dyspnea, rapid heart rate or syncope Respiratory/Chest Respiratory/Chest: Denies cough, dyspnea, excessive phlegm production, hemoptysis, productive cough, shortness of breath at rest, shortness of breath with exertion, wheezing or other Gastrointestinal Gastrointestinal: Reports nausea; Denies abdominal pain, coffee ground emesis, constipation, diarrhea, dyspepsia, hematemesis, hematochezia, loose stools, melena, vomiting or other Genitourinary Genitourinary: Denies burning urination, difficulty urinating, dysuria, hematuria, nocturia, urinary frequency, urinary hesitancy, urinary incontinence, urinary urgency or other Musculoskeletal Musculoskeletal: Reports other Details: Bilateral leg pain ; Denies arthralgias, back pain, joint pain, joint stiffness, joint swelling, myalgias or neck pain Neurologic Neurologic: Denies abnormal gait, abnormal speech, confusion, disequilibrium, dizziness, focal weakness, headache(s), numbness, paresthesias, seizure-like activity, seizures, syncope, tingling, tremor(s) or other Psychiatric Psychiatric: Reports depression; Denies anxiety, homicidal ideation, suicidal ideation or other Endocrine Endocrinology: Denies change in body appearance, cold intolerance, excessive sweating, heat intolerance, polydipsia, polyuria or other Hematologic/Lymphatic Hematologic/Lymphatic: Reports easy bruising; Denies anemia, easy bleeding, lymphadenopathy or other Allergic/Immunologic Allergic/Immunologic: Denies rhinitis, hives, eczemia, asthma or other Vital Signs Vital Signs Vital Signs: 05/09/22 12:13 05/09/22 14:14 05/09/22 15:04 Temperature 99.9 F H 98 F 98.1 F Temperature Source Temporal Temporal Oral Pulse Rate 79 67 69 Respiratory Rate 22 H 16 18 Blood Pressure 130/52 H 110/49 L 113/54 L Blood Pressure Mean 78 69 73 Blood Pressure Source Monitor Blood Pressure Position Semi-Fowlers Blood Pressure Location Right Arm Pulse Ox 98 97 98 Oxygen Delivery Method Room Air Room Air Room Air Weight Weight: 130.4 kg Body Mass Index (BMI) 34.9 Physical Exam Const alert, oriented x3, no apparent distress and well nourished Constitutional Narrative: Obese middle-aged white male sitting up in bed, appears chronically ill, at bedside, patient appears older than stated age, very pleasant and appropriately interactive General Appearance: cooperative HEENT normocephalic, head/scalp atraumatic, hearing grossly normal bilaterally and moist oral mucous membranes HEENT Narrative: Dentition is fair, Mallampati is 2, no thrush Eyes PERRL and EOMs intact bilaterally; Negative for conjunctivae normal Neck no lymphadenopathy, supple and no carotid bruits Neck Narrative: Trachea midline, no thyroid enlargement Resp normal respiratory effort, no retractions, no use of accessory muscles and clear to auscultation bilaterally Auscultation: Negative for crackles, rales, rhonchi or wheezes Cardio regular rate, regular rhythm, S1 normal heart sound, S2 normal heart sound, no murmurs, no rub, no gallops, no clicks and no JVD GI normal to inspection, nondistended, normoactive bowel sounds, soft to palpation, non-tender and non-distended GI Narrative: Stretch reyna, abdominal anasarca with pitting noted, umbilical hernia Palpation: hernia Extremity Extremity Narrative: 3+ pitting edema from feet to mid abdomen and back, no cyanosis or clubbing, decreased range of motion secondary to edema Skin No no rashes or lesions noted, No no wounds, skin turgor normal, No no jaundice, no petechiae and no mottling Skin Narrative: Pale with jaundice, severe anasarca, spider angiomata noted on chest Neuro oriented x3, CN's II-XII intact bilaterally, moves all extremities and no focal motor deficits Neuro Narrative: No asterixis Speech: speech normal Psych Psych Narrative: Affect is somewhat flattened mood seems depressed Results Lab / Micro Data Attestation: I reviewed the patient's lab results. Result Diagrams: 05/09/22 12:45 05/09/22 12:45 Labs: Laboratory Results - last 24 hr 05/09/22 12:45: WBC 7.5, RBC 2.07 L, Hgb 7.3 L, Hct 22.8 L, MCV 110.1 H, MCH 35.3 H, MCHC 32.0, RDW Std Deviation 62.1 H, RDW Coeff of Chris 15.4 H, Plt Count 104 L, MPV 9.9, Immature Gran % (Auto) 0.300, Neut % (Auto) 46.2 L, Lymph % (Auto) 32.0, [place] % (Auto) 18.4 H, Eos % (Auto) 2.7, Baso % (Auto) 0.4, Absolute Neuts (auto) 3.5, Absolute Lymphs (auto) 2.40, Nucleated RBC % 0 05/09/22 12:45: PT 20.9 H, INR 1.8 05/09/22 12:45: Sodium 139, Potassium 3.4 L, Chloride 107, Carbon Dioxide 24.0, Anion Gap 8, BUN 28 H, Creatinine 1.85 H, Estim Creat Clear Calc 59.30, Est GFR (MDRD) Af Amer 50 L, Est GFR (MDRD) Non-Af 41 L, BUN/Creatinine Ratio 15.1, Glucose 110 H, Calcium 8.2 L, Total Bilirubin 4.00 H, AST 58 H, ALT 37, Alkaline Phosphatase 84, Total Protein 6.8, Albumin 2.5 L, Globulin 4.3 H, Albumin/Globulin Ratio 0.6 L 05/09/22 14:10: Ur Random Sodium < 5 Radiology Impression Chest X-Ray 05/09/22 12:36 IMPRESSION: Normal x-ray examination of the chest. Electronically Signed: Ulises Jameson MD at 13:27 EDT , Assessment & Plan Assessment/Plan (1) Hypokalemia: (2) Anasarca: (3) Ascites due to chronic alcoholic hepatitis: (4) RON (acute kidney injury): PLAN: Plan Severe anasarca -Likely related to liver disease with marked third spacing and portal hypertension -Start octreotide drip -Start midodrine -Albumin 50 g x 1 followed by a repeat 50 g in 4 hours -Bumex 1 g 3 times daily -Limit fluids and salt intake -Gastroenterology consulted RON on CKD stage IIIb -Baseline serum creatinine appears to be 1.3-1.5 -Current serum creatinine is 1.85 showing a creatinine of 0.3 arise from baseline -Suspect cardiorenal syndrome -Sodium is pending however the patient is on diuretics at baseline and this may be falsely elevated -Treatment as above for anasarca -Creatinine should improve with albumin and Bumex if this is truly hepatorenal syndrome -Discussed with GI Liver cirrhosis -Etiology is unknown at this time--> work-up is in progress by gastroenterology -Patient does have remote history of alcohol abuse at which time he drank approximately case a day for 10 years -No excessive drinking in the last 20 years and he currently admits to 1-2 beers weekly -Meld score was 25 at last visit -Likely needs transplant referral -Has follow-up with Dr. Samuel on 05/30/2022 -Hepatitis studies were negative Chronic anemia/thrombocytopenia -Related to liver disease and splenomegaly -Counts are both stable -Continue to monitor Hyperbilirubinemia -Total bilirubin remained stable at approximately 4 -Related to above Hypokalemia -Potassium 60 mill equivalents x1 dose -Anticipate daily needs as patient is on diuretics -Repeat in a.m. Recent upper GI bleed -EGD from 04/03/2022 showed a normal esophagus, portal hypertensive gastropathy, and 3 bleeding angiodysplastic lesions that were treated with argon beam as well as 1 nonbleeding duodenal ulcer with no stigmata of recent bleeding -Continue Protonix twice daily -Globin is stable when compared to previous discharge Hypertension -Hold losartan/hydrochlorothiazide -Continue home metoprolol -As needed hydralazine Paroxysmal atrial fibrillation -Patient is currently in normal sinus rhythm -Continue metoprolol -Continue apixaban -Patient is seeing cardiology as an outpatient and plans to undergo a ablation in the future DVT prophylaxis -Continue home Eliquis CODE STATUS -Full code Charges/Coding Visit Charges Inpatient E&M: 85736 Init Hosp L3
[2022-05-09] MEDS: Albumin Human 25% (100 mL) 25 GM/100 ML BAG IV ×4 (15:33→21:10)
[2022-05-09] MEDS: Potassium Chloride Oral Tablet 20 MEQ 60 MEQ PO (15:37)
[2022-05-09 17:46] VITALS: BP 114/64; PULSE 66; RESP 18; TEMP 36.8; O2SAT 98
[2022-05-09] MEDS: Midodrine HCl 5 MG Tablet 10 MG PO (17:47)
--- NOTE | 2022-05-09 18:33 | PCM.CONS.GEN ---
Assessment & Plan Assessment/Plan (1) Anasarca: PLAN: Anasarca due to hypoalbuminemia associated with cirrhosis. He could be having some protein loss in his stool as he will have a relative protein, nutrition secondary to lactulose therapy trying to keep his ammonia level down. He also could be having some urinary losses due to possible hepatorenal syndrome causing his acute kidney injury. Recommend albumin 25 g every 8 hours along with his treatment for hepatorenal syndrome. He can also get Bumex therapy for aggressive removal of fluid from the third spaces in his body. (2) Ascites due to chronic alcoholic hepatitis: PLAN: He does not need a paracentesis at this time. He may benefit from steroids due to the fact that his Madrey score is still elevated despite being off of alcohol. (3) RON (acute kidney injury): PLAN: Most cases of HRS have urine sodium <10 mmol/L?and urine osmolality above plasma osmolality because the tubular function is preserved.?Acute kidney injury possibly secondary to hepatorenal syndrome recommend albumin 25 g every 8 hours, midodrine 5 mg p.o. 3 times daily and octreotide drip. HPI Consult Data Date of Consult: 05/09/22 HPI Narrative Reason for Consultation: cirrhosis HPI Narrative: CHENCHO MACARIO, is a 51-year-old male with past medical history of GERD, GIB, cirrhosis presents with edema. He was seen here a month ago with diarrhea and was found to have C. difficile and completed p.o. antibiotics.? He also had a GI bleed and EGD showing severe portal hypertensive gastropathy.? AVMs were treated endoscopically.? He says this was a new diagnosis of cirrhosis.? He restarted Eliquis after week and has had no further vomiting, diarrhea or bloody stool.? He has a history of atrial fibrillation and requires Eliquis on a daily basis to prevent blood clots. Over the last month he has had progressive edema of his lower extremities now extending to his thighs, scrotum, and lower abdomen.? He denies shortness of breath.? He is prescribed Lasix 40 mg once daily but increased it to 1.5 tablets in the morning which has not helped.? Today he had a follow-up with his primary care who sent him to the ED.? Patient states he has not drank alcohol since the middle of March. A CT of his abdomen pelvis was performed and showed diffuse hepatocellular disease and diffuse mesenteric edema with mild ascites, recannulization of the umbilical vein, mild diverticular changes in the colon without evidence of diverticulitis, a contracted thick-walled gallbladder with tiny calcified stones or polyp. [facility] Medical History Afib Chronic anemia Cirrhosis Former smoker GI bleed History of alcohol abuse Hyperbilirubinemia Hypertension Hypoalbuminemia Irregular heart beat Macrocytic anemia Mild intermittent asthma Pancreatitis Portal hypertension Resistant hypertension Splenomegaly Stage 3b chronic kidney disease (CKD) Thrombocytopenia Home Medications apixaban 5 mg tablet (Eliquis) 5 mg PO BID 04/02/22 [History Last Taken Unknown] furosemide 40 mg tablet 40 mg PO DAILY 04/02/22 [History Last Taken Unknown] losartan 100 mg-hydrochlorothiazide 12.5 mg tablet 1 tab PO DAILY 04/02/22 [History Last Taken Unknown] metoprolol succinate 100 mg tablet,extended release 24 hr 100 mg PO DAILY 04/02/22 [History Last Taken Unknown] potassium chloride 10 mEq tablet,extended release(part/cryst) 20 meq PO DAILY supplement 04/02/22 [History Last Taken Unknown] pantoprazole 40 mg tablet,delayed release 40 mg PO BID 30 days #60 tabs 04/05/22 [Rx Last Taken Unknown] albuterol sulfate 90 mcg/actuation aerosol inhaler 2 inh inhalation Q4H PRN PRN breathing 05/09/22 [History Last Taken Unknown] Allergy/AdvReac Type Severity Reaction Status Date / Time fish derived Allergy Anaphylaxis Verified 05/09/22 12:15 Penicillins Allergy Hives Verified 05/09/22 12:15 Family History (Updated 05/09/22 @ 15:[address] Rhina Varghese DO) Father Liver disease Other Aortic valve disease CAD (coronary artery disease) COPD (chronic obstructive pulmonary disease) Cancer Hyperlipidemia Hypertension Surgical History History of mandibular surgery S/P hernia surgery Social History (Updated 05/09/22 @ 15:[address] 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 Smoking Status: Former smoker Smokeless tobacco user: chewing tobacco how long ago did patient quit smokin yrs alcohol intake: former details: Last drink was 2021 substance use type: does not use ROS Constitutional Constitutional: Reports fatigue and weakness; Denies anorexia, change in weight, chills, fever(s), malaise, night sweats or other Eyes Eyes: Reports change in eye color; Denies blurry vision, change in vision, discharge from eye(s), double vision, erythema, eye pain, loss of vision or other ENT HEENT: Denies abnormal hearing, dysphagia, ear pain, epistaxis, headache(s), hearing loss, nasal congestion, nasal discharge, post nasal drip, sinus pressure, sore throat or other Cardiovascular Cardiovascular: Reports edema and other Details: Severe scrotal edema ; Denies chest pain, claudication, dyspnea on exertion, lightheadedness, orthopnea, palpitations, paroxysmal nocturnal dyspnea, rapid heart rate or syncope Respiratory/Chest Respiratory/Chest: Denies cough, dyspnea, excessive phlegm production, hemoptysis, productive cough, shortness of breath at rest, shortness of breath with exertion, wheezing or other Gastrointestinal Gastrointestinal: Reports nausea; Denies abdominal pain, coffee ground emesis, constipation, diarrhea, dyspepsia, hematemesis, hematochezia, loose stools, melena, vomiting or other Genitourinary Genitourinary: Denies burning urination, difficulty urinating, dysuria, hematuria, nocturia, urinary frequency, urinary hesitancy, urinary incontinence, urinary urgency or other Musculoskeletal Musculoskeletal: Reports other Details: Bilateral leg pain ; Denies arthralgias, back pain, joint pain, joint stiffness, joint swelling, myalgias or neck pain Neurologic Neurologic: Denies abnormal gait, abnormal speech, confusion, disequilibrium, dizziness, focal weakness, headache(s), numbness, paresthesias, seizure-like activity, seizures, syncope, tingling, tremor(s) or other Psychiatric Psychiatric: Reports depression; Denies anxiety, homicidal ideation, suicidal ideation or other Endocrine Endocrinology: Denies change in body appearance, cold intolerance, excessive sweating, heat intolerance, polydipsia, polyuria or other Hematologic/Lymphatic Hematologic/Lymphatic: Reports easy bruising; Denies anemia, easy bleeding, lymphadenopathy or other Allergic/Immunologic Allergic/Immunologic: Denies rhinitis, hives, eczemia, asthma or other Physical Exam Const alert, oriented x3, no apparent distress and well nourished General Appearance: cooperative HEENT normocephalic, head/scalp atraumatic, hearing grossly normal bilaterally and moist oral mucous membranes HEENT Narrative: Dentition is fair, Mallampati is 2, no thrush Eyes PERRL and EOMs intact bilaterally; Negative for conjunctivae normal Neck no lymphadenopathy, supple and no carotid bruits Neck Narrative: Trachea midline, no thyroid enlargement Resp normal respiratory effort, no retractions, no use of accessory muscles and clear to auscultation bilaterally Auscultation: Negative for crackles, rales, rhonchi or wheezes Cardio regular rate, regular rhythm, S1 normal heart sound, S2 normal heart sound, no murmurs, no rub, no gallops, no clicks and no JVD GI normal to inspection, nondistended, normoactive bowel sounds, soft to palpation, non-tender and non-distended GI Narrative: Stretch reyna, abdominal anasarca with pitting noted, umbilical hernia Palpation: hernia Extremity Extremity Narrative: 3+ pitting edema from feet to mid abdomen and back, no cyanosis or clubbing, decreased range of motion secondary to edema Skin No no rashes or lesions noted, No no wounds, skin turgor normal, No no jaundice, no petechiae and no mottling Skin Narrative: Pale with jaundice, severe anasarca, spider angiomata noted on chest Neuro oriented x3, CN's II-XII intact bilaterally, moves all extremities and no focal motor deficits Neuro Narrative: No asterixis Speech: speech normal Psych Psych Narrative: Affect is somewhat flattened mood seems depressed Lab / Micro Data Result Diagrams: 05/09/22 12:45 05/09/22 12:45 Labs: Laboratory Results - last 24 hr 05/09/22 12:45: WBC 7.5, RBC 2.07 L, Hgb 7.3 L, Hct 22.8 L, MCV 110.1 H, MCH 35.3 H, MCHC 32.0, RDW Std Deviation 62.1 H, RDW Coeff of Chris 15.4 H, Plt Count 104 L, MPV 9.9, Immature Gran % (Auto) 0.300, Neut % (Auto) 46.2 L, Lymph % (Auto) 32.0, [place] % (Auto) 18.4 H, Eos % (Auto) 2.7, Baso % (Auto) 0.4, Absolute Neuts (auto) 3.5, Absolute Lymphs (auto) 2.40, Nucleated RBC % 0 05/09/22 12:45: PT 20.9 H, INR 1.8 05/09/22 12:45: Sodium 139, Potassium 3.4 L, Chloride 107, Carbon Dioxide 24.0, Anion Gap 8, BUN 28 H, Creatinine 1.85 H, Estim Creat Clear Calc 59.30, Est GFR (MDRD) Af Amer 50 L, Est GFR (MDRD) Non-Af 41 L, BUN/Creatinine Ratio 15.1, Glucose 110 H, Calcium 8.2 L, Total Bilirubin 4.00 H, AST 58 H, ALT 37, Alkaline Phosphatase 84, Total Protein 6.8, Albumin 2.5 L, Globulin 4.3 H, Albumin/Globulin Ratio 0.6 L 05/09/22 14:10: Ur Random Sodium < 5 Radiology Impression Chest X-Ray 05/09/22 12:36 IMPRESSION: Normal x-ray examination of the chest. Electronically Signed: Ulises Jameson MD at 13:27 EDT ,
[2022-05-09] MEDS: APIXABAN 5 MG TABLET PO (21:11)
[2022-05-09] MEDS: Pantoprazole Sodium 40 MG Tablet PO (21:11)
[2022-05-09] MEDS: Bumetanide 1 MG/4 ML Vial IV (21:12)
[2022-05-09 22:00] VITALS: BP 112/61; PULSE 61; RESP 18; TEMP 37; O2SAT 96
[2022-05-10] VITALS (14 sets, daily range): BP systolic 104–162; BP diastolic 51–91; PULSE 56–97; RESP 18–42; TEMP 36.6–37.8; O2SAT 92–98
[2022-05-10] MEDS: Albuterol 2.5 MG/3 ML VIAL.NEB. INHALATION (04:10)
[2022-05-10 05:55] LABS: Absolute Lymphocyte Count 1.86 X10^3/uL (0.83-4.51); Absolute Neutrophil Count 4.1 X10^3/uL (2.0-7.7); Basophil# 0.02 X10^3/uL; Basophil% 0.3 % (0-1); Eosinophil# 0.16 X10^3/uL; Eosinophils% 2.2 % (0-5); Hematocrit 21.5 % (40-54); Hemoglobin 6.8 g/dL (13.0-16.5); Lymphocyte # 1.86 X10^3/ul (0.83-4.51); Lymphocyte % 25.5 % (19-41); Mean Corp Hgb Conc 31.6 g/dL (32-36); Mean Corpuscular Hgb 35.8 pg (27.0-32.0); Mean Corpuscular Volume 113.2 fL (80-94); Mean Platelet Vol. 10.4 fl (6.2-12.0); Monocyte# 1.12 X10^3/uL; Monocyte% 15.4 % (0-10); NRBC Flagged by Analyzer 0 % (0-5); Neutrophil % 56.3 % (47-70); Platelet Count 104 K/mm3 (150-450); RBC Distribution Width CV 15.4 % (11.6-14.6); White Blood Count 7.3 K/mm3 (4.4-11.0)
[2022-05-10] MEDS: 0.9% Saline Lock 10 ML Syringe IV ×3 (06:33→22:51)
[2022-05-10] MEDS: Bumetanide 1 MG/4 ML Vial IV ×3 (06:33→22:50)
[2022-05-10 06:40] LABS: ALB/GLOB Ratio 0.8 RATIO (0.9-2.4); AST(SGOT) 60 U/L (15-37); Alanine Aminotransfer ALT/SGPT 38 U/L (16-61); Albumin, Serum 3.2 g/dL (3.2-5.0); Alkaline Phosphatase 74 U/L (45-117); Anion Gap 7 (5-15); BUN 31 mg/dL (7-18); BUN/Creat Ratio 14.2 RATIO (10-20); Calcium,Total 8.4 mg/dL (8.5-10.1); Chloride 105 mmol/L (98-107); Creatinine, Serum 2.19 mg/dL (0.70-1.30); EST Glomerular Filtration Rate 34 mL/min (>60); Est Glom Filt Rate - Afr Amer 41 mL/min (>60); Estimated Creatinine Clearance 50.09 ml/min; Glucose 140 mg/dL (74-106); Magnesium 2.1 mg/dL (1.6-2.6); Phosphorus 3.6 mg/dL (2.5-4.9); Potassium 4.2 mmol/L (3.5-5.1); Protein, Total 7.2 g/dL (6.4-8.2); Sodium Level 136 mmol/L (136-145)
[2022-05-10] MEDS: Midodrine HCl 5 MG Tablet 10 MG PO ×3 (08:07→16:08)
--- NOTE | 2022-05-10 09:53 | PN.HOSP_ITS ---
Documented by User: Jaylyn Jordan NP-C 05/10/22 10:16 Subjective Subjective Patient seen and examined. Patient lying in bed no distress noted. Patient states that he feels slightly better than yesterday however he continues to feel uncomfortable due to swelling. Objective Data Objective Data Vital Signs: Vital Signs Temp Pulse Resp BP Pulse Ox O2 Del Method 98.2 F 64 18 111/56 L 95 Room Air 05/10/22 08:02 05/10/22 08:02 05/10/22 08:09 05/10/22 08:02 05/10/22 08:02 05/10/22 08:09 Oxygen Delivery Method Room Air Weight: 277 lb 1.6 oz Body Mass Index (BMI) 34.9 Intake & Output: Intake and Output for Last 24 Hours 05/08/22 05/09/22 05/10/22 23:59 23:59 23:59 Intake Total 950 / 950 Balance 950 / 950 Lab / Micro Data Result Diagrams: 05/10/22 05:36 05/10/22 05:36 Labs: Laboratory Results - last 24 hr 05/09/22 12:45: WBC 7.5, RBC 2.07 L, Hgb 7.3 L, Hct 22.8 L, MCV 110.1 H, MCH 35.3 H, MCHC 32.0, RDW Std Deviation 62.1 H, RDW Coeff of Chris 15.4 H, Plt Count 104 L, MPV 9.9, Immature Gran % (Auto) 0.300, Neut % (Auto) 46.2 L, Lymph % (Auto) 32.0, [place] % (Auto) 18.4 H, Eos % (Auto) 2.7, Baso % (Auto) 0.4, Absolute Neuts (auto) 3.5, Absolute Lymphs (auto) 2.40, Nucleated RBC % 0 05/09/22 12:45: PT 20.9 H, INR 1.8 05/09/22 12:45: Sodium 139, Potassium 3.4 L, Chloride 107, Carbon Dioxide 24.0, Anion Gap 8, BUN 28 H, Creatinine 1.85 H, Estim Creat Clear Calc 59.30, Est GFR (MDRD) Af Amer 50 L, Est GFR (MDRD) Non-Af 41 L, BUN/Creatinine Ratio 15.1, Glucose 110 H, Calcium 8.2 L, Total Bilirubin 4.00 H, AST 58 H, ALT 37, Alkaline Phosphatase 84, Total Protein 6.8, Albumin 2.5 L, Globulin 4.3 H, Albumin/Globulin Ratio 0.6 L 05/09/22 14:10: Ur Random Sodium < 5 05/10/22 05:36: WBC 7.3, RBC 1.90 L, Hgb 6.8 L, Hct 21.5 L, MCV 113.2 H, MCH 35.8 H, MCHC 31.6 L, RDW Std Deviation 64.0 H, RDW Coeff of Chris 15.4 H, Plt Count 104 L, MPV 10.4, Immature Gran % (Auto) 0.300, Neut % (Auto) 56.3, Lymph % (Auto) 25.5, [place] % (Auto) 15.4 H, Eos % (Auto) 2.2, Baso % (Auto) 0.3, Absolute Neuts (auto) 4.1, Absolute Lymphs (auto) 1.86, Nucleated RBC % 0 05/10/22 05:36: Sodium 136, Potassium 4.2, Chloride 105, Carbon Dioxide 24.0, An ion Gap 7, BUN 31 H, Creatinine 2.19 H, Estim Creat Clear Calc 50.09, Est GFR (MDRD) Af Amer 41 L, Est GFR (MDRD) Non-Af 34 L, BUN/Creatinine Ratio 14.2, Glucose 140 H, Calcium 8.4 L, Phosphorus 3.6, Magnesium 2.1, Total Bilirubin 4.90 H, AST 60 H, ALT 38, Alkaline Phosphatase 74, Total Protein 7.2, Albumin 3.2, Globulin 4.0, Albumin/Globulin Ratio 0.8 L 05/10/22 07:41: Blood Type A POSITIVE, Antibody Screen NEGATIVE, Crossmatch See Detail Radiography Diagnostic Testing: Radiology Impression Chest X-Ray 05/09/22 12:36 IMPRESSION: Normal x-ray examination of the chest. Electronically Signed: Ulises Jameson MD at 13:27 EDT , Physical Exam Const alert, oriented x3, no apparent distress and well nourished General Appearance: cooperative HEENT normocephalic, head/scalp atraumatic, hearing grossly normal bilaterally and moist oral mucous membranes Eyes Negative for conjunctivae normal Neck no lymphadenopathy and supple Neck Narrative: Trachea midline, no thyroid enlargement Resp normal respiratory effort and clear to auscultation bilaterally Cardio regular rate, regular rhythm, S1 normal heart sound and S2 normal heart sound GI normal to inspection, nondistended, normoactive bowel sounds, soft to palpation and non-tender GI Narrative: Stretch reyna, abdominal anasarca with pitting noted, umbilical hernia Palpation: hernia Extremity Extremity Narrative: 3+ pitting edema from feet to mid abdomen and back, no cyanosis or clubbing, decreased range of motion secondary to edema Skin No no rashes or lesions noted, No no wounds, skin turgor normal, no petechiae and no mottling Skin Narrative: Pale with jaundice, severe anasarca, spider angiomata noted on chest Neuro oriented x3, moves all extremities and no focal motor deficits Speech: speech normal Psych affect normal Assessment & Plan Assessment/Plan (1) Hypokalemia: (2) Anasarca: (3) Ascites due to chronic alcoholic hepatitis: (4) RON (acute kidney injury): PLAN: Plan 1.Severe anasarca -Continue octreotide drip and midodrine -Patient received albumin 50g x2 -Continue Bumex 1 g 3 times daily -Limit fluids and salt intake -Gastroenterology consulted 2. RON on CKD stage IIIb -Baseline serum creatinine appears to be 1.3-1.5 -Creatinine 2.19 today -Creatinine should improve with albumin and Bumex if this is truly hepatorenal syndrome 3. Liver cirrhosis -Etiology is unknown at this time, workup pending with GI -Patient does have remote history of alcohol abuse at which time he drank approximately case a day for 10 years -No excessive drinking in the last 20 years and he currently admits to 1-2 beers weekly -MELD score 27, follows with GI -Hepatitis studies were negative 4. Chronic anemia/thrombocytopenia -Related to liver disease and splenomegaly -Stable, CBC daily 5. Hyperbilirubinemia -Total Bilirubin 4.90 6. Hypokalemia -Potassium 4.2, resolved -BMP daily 7. Recent upper GI bleed -EGD from 04/03/2022 showed a normal esophagus, portal hypertensive gastropathy, and 3 bleeding angiodysplastic lesions that were treated with argon beam as well as 1 nonbleeding duodenal ulcer with no stigmata of recent bleeding -Continue Protonix twice daily -Hemoglobin 6.8 today, 1 unit PRBC ordered for transfusion 8. Hypertension -Hold losartan/hydrochlorothiazide -Continue home metoprolol -As needed hydralazine 9. Paroxysmal atrial fibrillation -NSR -Continue metoprolol and eliquis DVT prophylaxis-Chronically anticoagulated with Eliquis This patient was seen by Jaylyn Jordan NP-C under the supervision of Dr. Atwood. 14 minutes spent in clinical coordination of patient's plan of care. Documented by User: Dr. Ashly Atwood MD 05/10/22 15:17 Objective Data Lab / Micro Data Result Diagrams: 05/10/22 05:36 05/10/22 05:36 Assessment & Plan Assessment/Plan (1) Hypokalemia: (2) Anasarca: (3) Ascites due to chronic alcoholic hepatitis: (4) RON (acute kidney injury): Charges/Coding Addendum Addendum: This patient was seen in conjunction with Dima Jordan NP. I have independen tly interviewed and examined the patient and reviewed pertinent historical, laboratory, and other data. I have reviewed her note and concur with her documentation Patient was seen and examined. He feels about the same. He has been diuresing. Denied any chest pain or dizziness or abdominal pain. Denied any melena or hematochezia. Vitals have been stable. Hemoglobin this morning 6.8. Patient will be transfused 1 unit of packed RBC. Physical Exam: Gen: Comfortable, not pale, not jaundiced CVS:HS I +II, regular, no murmurs RESP: Diminished at lung bases GI: BS present and normal, soft, ascites ++, nontender, no palpable organs EXT: Bilateral leg edema +3 ASSESSMENT: 1. Severe anasarca 2. RON on CKD stage IIIb 3. Cirrhosis of liver 4. Anemia, acute on chronic 5. Chronic thrombocytopenia 6. Hypokalemia 7. Recent upper GI bleed 8. Hypertension 9. Paroxysmal atrial fibrillation Plan: Transfuse 1 unit of pRBC Octreotide drip Continue Bumex IV BID Continue Midodrine TID Repeat labs Time spent coordinating all aspects of patient's care, discussing with nursin minutes Visit Charges Inpatient E&M: 87079 Subs Hosp L2
--- NOTE | 2022-05-10 10:00 | CASEMGMT ---
MIKEL WADE Assessment: Face to Face with pt for initial transition planning/care coordination assessment. RN MAURO introduced self and role at [facility], pt voices understanding and consents to assessment. Pt is A/O x4 and answers all questions appropriately at this time. Pt lying in bed in no distress with mother at bedside. Pt did not make eye contact throughout assessment. Care providers, pharmacy, and demographics verified/updated. Admitting Dx: liver disease/anasarca PCP: [facility] Specialists:Friend, GI; Alejandro, cardio Preferred Pharmacy: [facility] Insurance: [employer] Prescription Benefit: yes LW/HPOA: Pt denies having a LW/DPOA and denies need for info regarding AD. LNOK: Celina Adams, Living Arrangements: Pt lives with and 4 children in a two story house with no steps to enter. Pt reports he is I in ADL's and denies concerns at home. Transportation: Pt drives self and denies concerns with transportation. DME/HHC/SNF: Pt denies having any DME, previous HHC or SNF stays. Pt states no concerns with going home at time of dc. 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 Pt states no further concerns/needs. CM to follow. Advised pt to ask CM if any further question/concerns/needs arise, voices understanding. Pt Goal: Home Plan: Home
[2022-05-10] MEDS: Metoprolol(XL)Succ 100 MG Tablet PO (10:21)
[2022-05-10] MEDS: APIXABAN 5 MG TABLET PO ×2 (10:21→22:51)
[2022-05-10] MEDS: Pantoprazole Sodium 40 MG Tablet PO ×2 (10:21→22:51)
--- NOTE | 2022-05-10 16:35 | PN_ITS ---
Subjective Subjective Patient seen with his and mother at the bedside. He still has not been producing much urine. He is still very swollen and edematous. Objective Data Objective Data Vital Signs: Vital Signs Temp Pulse Resp BP Pulse Ox O2 Del Method 97.8 F 68 18 115/56 L 93 Room Air 05/10/22 16:06 05/10/22 16:06 05/10/22 16:06 05/10/22 16:06 05/10/22 16:06 05/10/22 16:06 Oxygen Delivery Method Room Air Weight: 277 lb 1.6 oz Body Mass Index (BMI) 34.9 Intake & Output: Intake and Output for Last 24 Hours 05/08/22 05/09/22 05/10/22 23:59 23:59 23:59 Intake Total 950 / 950 601 / 601 Balance 950 / 950 601 / 601 Lab / Micro Data Result Diagrams: 05/10/22 05:36 05/10/22 05:36 Labs: Laboratory Results - last 24 hr 05/10/22 05:36: WBC 7.3, RBC 1.90 L, Hgb 6.8 L, Hct 21.5 L, MCV 113.2 H, MCH 35.8 H, MCHC 31.6 L, RDW Std Deviation 64.0 H, RDW Coeff of Chris 15.4 H, Plt Count 104 L, MPV 10.4, Immature Gran % (Auto) 0.300, Neut % (Auto) 56.3, Lymph % (Auto) 25.5, [place] % (Auto) 15.4 H, Eos % (Auto) 2.2, Baso % (Auto) 0.3, Absolute Neuts (auto) 4.1, Absolute Lymphs (auto) 1.86, Nucleated RBC % 0 05/10/22 05:36: Sodium 136, Potassium 4.2, Chloride 105, Carbon Dioxide 24.0, Anion Gap 7, BUN 31 H, Creatinine 2.19 H, Estim Creat Clear Calc 50.09, Est GFR (MDRD) Af Amer 41 L, Est GFR (MDRD) Non-Af 34 L, BUN/Creatinine Ratio 14.2, Glucose 140 H, Calcium 8.4 L, Phosphorus 3.6, Magnesium 2.1, Total Bilirubin 4.90 H, AST 60 H, ALT 38, Alkaline Phosphatase 74, Total Protein 7.2, Albumin 3.2, Globulin 4.0, Albumin/Globulin Ratio 0.8 L 05/10/22 07:41: Blood Type A POSITIVE, Antibody Screen NEGATIVE, Crossmatch See Detail Physical Exam Const alert, oriented x3, no apparent distress and well nourished General Appearance: cooperative HEENT normocephalic, head/scalp atraumatic, hearing grossly normal bilaterally and moist oral mucous membranes Eyes Negative for conjunctivae normal Neck no lymphadenopathy and supple Neck Narrative: Trachea midline, no thyroid enlargement Resp normal respiratory effort and clear to auscultation bilaterally Cardio regular rate, regular rhythm, S1 normal heart sound and S2 normal heart sound GI normal to inspection, nondistended, normoactive bowel sounds, soft to palpation and non-tender GI Narrative: Stretch reyna, abdominal anasarca with pitting noted, umbilical hernia Palpation: hernia Extremity Extremity Narrative: 3+ pitting edema from feet to mid abdomen and back, no cyanosis or clubbing, decreased range of motion secondary to edema Skin No no rashes or lesions noted, No no wounds, skin turgor normal, no petechiae and no mottling Skin Narrative: Pale with jaundice, severe anasarca, spider angiomata noted on chest Neuro oriented x3, moves all extremities and no focal motor deficits Speech: speech normal Psych affect normal Assessment & Plan Assessment/Plan (1) RON (acute kidney injury): PLAN: Acute kidney injury low-sodium possibly secondary to hepatorenal syndrome. He is on midodrine, albumin and octreotide therapy. He should get a nephrology consultation. I will continue current Bumex dosing until he is seen by nephrology. (2) Anasarca: PLAN: Diffuse anasarca secondary to chronic liver disease. 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 I will send biochemical work-up and he will need a liver biopsy. Also need to check his ferritin to see if he would benefit from an iron transfusion. he will also need a liver biopsy as he has a strong family history of chronic liver disease not secondary to alcohol.. (4) GI bleed: PLAN: He should undergo an upper and lower endoscopy and capsule endoscopy to evaluate his recurrent blood loss anemia in the setting of cirrhosis. Charges/Coding Visit Charges Inpatient E&M: 64593 Subs Hosp L3
[2022-05-10] MEDS: Bisacodyl 5 MG Tablet 20 MG PO (17:26)
[2022-05-10 17:50] LABS: Ferritin 285 ng/mL (26-388)
[2022-05-10] MEDS: Electrolyte Solution/Peg's 4000 ML PO (20:26)
[2022-05-10] MEDS: Ondansetron 4 MG/2 ML Vial IV (23:48)
[2022-05-11] VITALS (12 sets, daily range): BP systolic 107–139; BP diastolic 48–69; PULSE 53–66; RESP 15–22; TEMP 36.5–36.9; O2SAT 92–99; BMI 35.2
[2022-05-11] MEDS: Bumetanide 1 MG/4 ML Vial IV (04:55)
[2022-05-11] MEDS: 0.9% Saline Lock 10 ML Syringe IV ×4 (04:56→22:07)
--- NOTE | 2022-05-11 06:00 | EKG12_ITS ---
Test Reason : AM EKG Blood Pressure : / mmHG Vent. Rate : 063 BPM Atrial Rate : 063 BPM P-R Int : 160 ms QRS Dur : 094 ms QT Int : 474 ms P-R-T Axes : 012 057 180 degrees QTc Int : 485 ms Normal sinus rhythm Low voltage QRS T wave abnormality, consider anterolateral ischemia Prolonged QT Abnormal ECG When compared with ECG of 03-APR-2022 05:26, Fusion complexes are no longer Present Confirmed by ANITRA DEXTER, ELISE ([id number]), editor house organ MATTEO MCKEON ([id number]) on 05/14/2022 11:14:22 AM Referred By: EDA Confirmed By:ELISE AYOUB MD
[2022-05-11 06:27] LABS: Absolute Lymphocyte Count 2.36 X10^3/uL (0.83-4.51); Absolute Neutrophil Count 4.5 X10^3/uL (2.0-7.7); Basophil# 0.03 X10^3/uL; Basophil% 0.4 % (0-1); Eosinophil# 0.24 X10^3/uL; Eosinophils% 2.9 % (0-5); Hematocrit 24.7 % (40-54); Lymphocyte # 2.36 X10^3/ul (0.83-4.51); Lymphocyte % 28.4 % (19-41); Mean Corp Hgb Conc 32.4 g/dL (32-36); Mean Corpuscular Hgb 34.9 pg (27.0-32.0); Mean Corpuscular Volume 107.9 fL (80-94); Mean Platelet Vol. 10.5 fl (6.2-12.0); Monocyte# 1.22 X10^3/uL; Monocyte% 14.7 % (0-10); NRBC Flagged by Analyzer 0 % (0-5); Neutrophil # 4.45 X10^3/uL (2.7-7.7); Neutrophil % 53.4 % (47-70); POSITIVE MORPHOLOGY YES; Platelet Count 119 K/mm3 (150-450); RBC Distribution Width CV 18.8 % (11.6-14.6); Red Blood Count 2.29 M/mm3 (4.6-6.2); White Blood Count 8.3 K/mm3 (4.4-11.0)
[2022-05-11 06:33] LABS: Differential Indicated SCAN CRITERIA MET
[2022-05-11 06:50] LABS: ALB/GLOB Ratio 0.8 RATIO (0.9-2.4); AST(SGOT) 69 U/L (15-37); Alanine Aminotransfer ALT/SGPT 39 U/L (16-61); Albumin, Serum 3.3 g/dL (3.2-5.0); Alkaline Phosphatase 80 U/L (45-117); Anion Gap 9 (5-15); BUN 32 mg/dL (7-18); BUN/Creat Ratio 12.5 RATIO (10-20); Calcium,Total 8.7 mg/dL (8.5-10.1); Chloride 105 mmol/L (98-107); Creatinine, Serum 2.57 mg/dL (0.70-1.30); EST Glomerular Filtration Rate 28 mL/min (>60); Est Glom Filt Rate - Afr Amer 34 mL/min (>60); Estimated Creatinine Clearance 42.69 ml/min; Globulin 4.2 g/dL (2.2-4.2); Glucose 111 mg/dL (74-106); Potassium 3.9 mmol/L (3.5-5.1); Protein, Total 7.5 g/dL (6.4-8.2); Sodium Level 138 mmol/L (136-145)
[2022-05-11 06:55] LABS: Anisocytosis 2+; Differential Comment SCANNED; Macrocytosis 2+
--- NOTE | 2022-05-11 07:49 | NURSING ---
LEAVING UNIT VIA BED FOR SCHEDULED PROCEDURE
--- NOTE | 2022-05-11 08:05 | COLBX_PTH ---
PATIENT: CHENCHO MACARIO LOC: [facility] U#:[id number] AGE/SX: 51/M ROOM: ICU02 RE05/09/[address]: Dr. Luis Green MD : 1970 BED: 1 DIS: 05/16/2022 SPEC #: [id number] RECD: 05/11/22 09:02 STATUS: MO RENeel #: [id number] JAMES: 05/11/22 08:[address]: Cornelius Samuel DEPT: SURGICAL PATHOLOGY RECD BY: Laurel Padgett ENTERED: 05/13/22 11:45 SP TYPE: COLON BX OTHR DR: MD Dr. Juice Stone MD Dr. Kathryn Lee, DO Dr. Mark Elderbrock, MD Dr. Natthavat Tanphaichitr, MD Tissues: Transverse colon Procedures: Surgery Specimen Level IV Comments: @ Ordering doctor for SUIV edited from to @ by DERRELL at 05/13/22 1342 @ Submitting doctor edited from to @ by RGOOD at 05/13/22 1342 HEADER OPERATION: [place]oscopy[place] [place] DIAGNOSIS: RON, anasarca, cirrhosis, GI bleed TISSUE SUBMITTED: Transverse colon polyp MICROSCOPIC DIAGNOSIS Transverse colon polyp, biopsy: Tubular adenoma. CHIDI:ally 05/14/2022 MICROSCOPIC DESCRIPTION Slides are reviewed. GROSS DESCRIPTION Received in fixative is one container labeled with the patient's name and designated transverse colon polyp. The specimen consists of one irregular fragment of light rodriguez soft tissue that measures 0.4 x 0.3 x 0.2 cm. The specimen is totally submitted in one cassette. / CHIDI:ally 05/13/2022 TC:1 CPT: 98719
--- NOTE | 2022-05-11 08:58 | OP.EGD_ITS ---
Patient Name: Alok Adams Procedure Date: 05/11/2022 7:52 AM Date of : 1970 Age: 51 Procedure: Upper GI endoscopy Indications: Iron deficiency anemia, Failure to respond to medical treatment, Hematochezia, Heme positive stool Providers: Cornelius Samuel DO Medicines: Monitored Anesthesia Care Patient Profile: This is a 51 year old male. Refer to note in patient chart for documentation of history and physical. Patient has symptoms of chronic nausea and acute vomiting. Complications: No immediate complications. Procedure: Pre-Anesthesia Assessment: - Prior to the procedure, a History and Physical was performed, and patient medications and allergies were reviewed. The patient is competent. The risks and benefits of the procedure and the sedation options and risks were discussed with the patient. All questions were answered and informed consent was obtained. Patient identification and proposed procedure were verified by the physician in the pre-procedure area. Mental Status Examination: alert and oriented. Airway Examination: normal oropharyngeal airway and neck mobility. Respiratory Examination: clear to auscultation. CV Examination: normal. Prophylactic Antibiotics: The patient does not require prophylactic antibiotics. Prior Anticoagulants: The patient has taken no previous anticoagulant or antiplatelet agents. ASA Grade Assessment: II - A patient with mild systemic disease. After reviewing the risks and benefits, the patient was deemed in satisfactory condition to undergo the procedure. The anesthesia plan was to use moderate sedation / analgesia (conscious sedation). Immediately prior to administration of medications, the patient was re-assessed for adequacy to receive sedatives. The heart rate, respiratory rate, oxygen saturations, blood pressure, adequacy of pulmonary ventilation, and response to care were monitored throughout the procedure. The physical status of the patient was re-assessed after the procedure. After obtaining informed consent, the endoscope was passed under direct vision. Throughout the procedure, the patient's blood pressure, pulse, and oxygen saturations were monitored continuously. The colonoscope was introduced through the mouth, and advanced to the second part of duodenum. The upper GI endoscopy was accomplished without difficulty. The patient tolerated the procedure well. Scope In: 8:14:16 AM Scope Out: 8:21:51 AM Total Procedure Duration Time 0 hours 7 minutes 35 seconds Findings: The nasopharynx and oropharynx are abnormal due to the fact that there was red blood in the mouth. Red blood was found in the entire esophagus. Two 5 mm bleeding angiodysplastic lesions were found in the cardia and in the gastric fundus. Coagulation for hemostasis using argon plasma at 0.3 liters/minute and 20 boykin was successful. Estimated blood loss was minimal. Severe portal hypertensive gastropathy was found in the cardia, in the gastric fundus, in the gastric body and on the anterior wall of the stomach. Coagulation for hemostasis using argon plasma at 0.3 liters/minute and 20 boykin was successful. Estimated blood loss was minimal. Diffuse severely erythematous mucosa without bleeding was found in the entire examined stomach. The third portion of the duodenum was normal. Impression: - The nasopharynx and oropharynx are abnormal. - Red blood in the esophagus. - Two bleeding angiodysplastic lesions in the stomach. Treated with argon plasma coagulation (APC). - Portal hypertensive gastropathy. Treated with argon plasma coagulation (APC). - Erythematous mucosa in the stomach. - Normal third portion of the duodenum. - No specimens collected. Recommendation: - [facility]. - Resume previous diet. - Continue present medications. -ENT evaluation for anterior or posterior nasal bleed Procedure Code(s): --- Professional --- 80777, Esophagogastroduodenoscopy, flexible, transoral; with control of bleeding, any method CPT copyright 2017 [employer]. All rights reserved. The codes documented in this report are preliminary and upon agricultural real estate agent review may be revised to meet current compliance requirements. Cornelius Samuel DO 05/11/2022 8:57:33 AM This report has been signed electronically. Number of Addenda: 1 Note Initiated On: 05/11/2022 7:52 AM Addendum Number: 1 Addendum Date: 07/24/2022 6:11:26 AM MAC was used as sedation for this procedure. Cornelius Samuel DO 07/24/2022 6:11:30 AM This report has been signed electronically.
--- NOTE | 2022-05-11 08:59 | OP.CCLET_ITS ---
07/24/2022 Jovan Hamilton [address] [place] [address] Re : Upper GI endoscopy procedure for Alok Adams Dear Dr. Hamilton This procedure was performed on Wednesday, May 11, 2022. My impressions and recommendations are as follows: Impressions : - The nasopharynx and oropharynx are abnormal. - Red blood in the esophagus. - Two bleeding angiodysplastic lesions in the stomach. Treated with argon plasma coagulation (APC). - Portal hypertensive gastropathy. Treated with argon plasma coagulation (APC). - Erythematous mucosa in the stomach. - Normal third portion of the duodenum. - No specimens collected. Recommendations : - [facility]. - Resume previous diet. - Continue present medications. -ENT evaluation for anterior or posterior nasal bleed My findings are described in the full procedure note, which is enclosed. If I can be of further assistance, please feel free to contact me at . Sincerely, Cornelius Samuel DO 05/11/2022 8:57:33 AM This report has been signed electronically.
--- NOTE | 2022-05-11 09:05 | OP.COLON_ITS ---
Patient Name: Alok Adams Procedure Date: 05/11/2022 8:23 AM Date of : 1970 Age: 51 Procedure: Colonoscopy Indications: Iron deficiency anemia Providers: Cornelius Samuel DO Medicines: Monitored Anesthesia Care Patient Profile: This is a 51 year old male. Refer to note in patient chart for documentation of history and physical. Patient has symptoms of chronic nausea and acute vomiting. Last Colonoscopy: none. The patient's first colonoscopy is today. Complications: No immediate complications. Procedure: Pre-Anesthesia Assessment: - Prior to the procedure, a History and Physical was performed, and patient medications and allergies were reviewed. The patient is competent. The risks and benefits of the procedure and the sedation options and risks were discussed with the patient. All questions were answered and informed consent was obtained. Patient identification and proposed procedure were verified by the physician in the pre-procedure area. Mental Status Examination: alert and oriented. Airway Examination: normal oropharyngeal airway and neck mobility. Respiratory Examination: clear to auscultation. CV Examination: normal. Prophylactic Antibiotics: The patient does not require prophylactic antibiotics. Prior Anticoagulants: The patient has taken no previous anticoagulant or antiplatelet agents. ASA Grade Assessment: II - A patient with mild systemic disease. After reviewing the risks and benefits, the patient was deemed in satisfactory condition to undergo the procedure. The anesthesia plan was to use moderate sedation / analgesia (conscious sedation). Immediately prior to administration of medications, the patient was re-assessed for adequacy to receive sedatives. The heart rate, respiratory rate, oxygen saturations, blood pressure, adequacy of pulmonary ventilation, and response to care were monitored throughout the procedure. The physical status of the patient was re-assessed after the procedure. After I obtained informed consent, the scope was passed under direct vision. Throughout the procedure, the patient's blood pressure, pulse, and oxygen saturations were monitored continuously. The colonoscope was introduced through the anus and advanced to the terminal ileum. The colonoscopy was performed without difficulty. The patient tolerated the procedure well. The quality of the bowel preparation was adequate. Scope In: 8:28:13 AM Scope Withdrawal Time 0 hours 9 minutes 14 seconds Scope Out: 8:41:27 AM Total Procedure Duration Time 0 hours 13 minutes 14 seconds Findings: Hemorrhoids were found on perianal exam. Many small and large-mouthed diverticula were found in the recto-sigmoid colon, sigmoid colon and descending colon. A 5 mm polyp was found in the transverse colon. The polyp was sessile. The polyp was removed with a hot snare. Resection and retrieval were complete. Verification of patient identification for the specimen was done. Estimated blood loss was minimal. Three medium-sized angiodysplastic lesions with bleeding were found in the sigmoid colon, in the descending colon and in the ascending colon. Coagulation for hemostasis using argon plasma at 0.3 liters/minute and 20 boykin was successful. Estimated blood loss was minimal. Impression: - Hemorrhoids found on perianal exam. - Diverticulosis in the recto-sigmoid colon, in the sigmoid colon and in the descending colon. - One 5 mm polyp in the transverse colon, removed with a hot snare. Resected and retrieved. - Three bleeding colonic angiodysplastic lesions. Treated with argon plasma coagulation (APC). Recommendation: - Return patient to ICU for ongoing care. - Resume previous diet. - Continue present medications. - Await pathology results. - Repeat colonoscopy in 5 years for surveillance. Procedure Code(s): --- Professional --- 98278, 59, Colonoscopy, flexible; with control of bleeding, any method 21352, Colonoscopy, flexible; with removal of tumor(s), polyp(s), or other lesion(s) by snare technique CPT copyright 2017 [employer]. All rights reserved. The codes documented in this report are preliminary and upon assembly detailer review may be revised to meet current compliance requirements. Cornelius Samuel DO 05/11/2022 9:05:15 AM This report has been signed electronically. Number of Addenda: 1 Note Initiated On: 05/11/2022 8:23 AM Addendum Number: 1 Addendum Date: 07/24/2022 6:11:38 AM MAC was used as sedation for this procedure. Cornelius Samuel DO 07/24/2022 6:11:42 AM This report has been signed electronically.
--- NOTE | 2022-05-11 09:07 | OP.CCLET_ITS ---
07/24/2022 Jovan Hamilton [address] [place] [address] Re : Colonoscopy procedure for Alok Adams Dear Dr. Hamilton This procedure was performed on Wednesday, May 11, 2022. My impressions and recommendations are as follows: Impressions : - Hemorrhoids found on perianal exam. - Diverticulosis in the recto-sigmoid colon, in the sigmoid colon and in the descending colon. - One 5 mm polyp in the transverse colon, removed with a hot snare. Resected and retrieved. - Three bleeding colonic angiodysplastic lesions. Treated with argon plasma coagulation (APC). Recommendations : - Return patient to ICU for ongoing care. - Resume previous diet. - Continue present medications. - Await pathology results. - Repeat colonoscopy in 5 years for surveillance. My findings are described in the full procedure note, which is enclosed. If I can be of further assistance, please feel free to contact me at . Sincerely, oCrnelius Samuel, 05/11/2022 9:05:15 AM This report has been signed electronically.
[2022-05-11] MEDS: APIXABAN 5 MG TABLET PO (09:29)
[2022-05-11] MEDS: Pantoprazole Sodium 40 MG Tablet PO ×2 (09:29→22:16)
[2022-05-11] MEDS: Midodrine HCl 5 MG Tablet 10 MG PO ×3 (09:29→16:35)
--- NOTE | 2022-05-11 09:42 | US_ITS ---
STUDY: RENAL ULTRASOUND - COMPLETE REASON FOR EXAM: Male, 51 years old. RON TECHNIQUE: Ultrasound evaluation of the kidneys was performed with real-time and static mazariegos-scale imaging. COMPARISON: CT of abdomen and pelvis dated APRIL 02, 2022 FINDINGS: The parenchymal echogenicity of both kidneys is diffusely and mildly to moderately increased, consistent with medical renal disease. Visualized aspects of the liver reveal diffuse fatty infiltration and a small amount of perihepatic ascites. Included portions of the spleen reveals mild to moderate splenomegaly at 16.2 x 6.3 cm. RIGHT KIDNEY: Normal location of the right kidney, which is normal in size. The right kidney measures 12.3 x 5.3 x 6.6 cm. There is diffuse thinning of the renal cortex. The renal cortex measures 2.2 cm. There is no right renal mass or cyst. There are no right renal calculi. There is no right hydronephrosis. DISTAL RIGHT URETER: There is non-visualization of the distal right ureter. There is no demonstrated right ureterovesical junction calculus. There is a visualized right ureteral jet. LEFT KIDNEY: Normal location of the left kidney, which is normal in size. The left kidney measures 12.5 x 5.0 x 6.8 cm. There is diffuse thinning of the renal cortex. The renal cortex measures 2.2 cm. There is no left renal mass. A small cyst is present in the midpole of the left kidney maximally measuring 1.3 cm. There are no left renal calculi. There is no left hydronephrosis. DISTAL LEFT URETER: There is non-visualization of the distal left ureter. There is no demonstrated left ureterovesical junction calculus. There is no demonstrated left ureteral jet. BLADDER: Normal fluid distended bladder lumen. There is a normal wall thickness of the distended urinary bladder. There is no demonstrated mass within the urinary bladder. There are no demonstrated bladder calculi. US/Kidney and Bladder IMPRESSION: 1. The parenchymal echogenicity of both kidneys is diffusely and mildly to moderately increased, consistent with medical renal disease. 2. Visualized aspects of the liver reveal diffuse fatty infiltration and a small amount of perihepatic ascites. Included portions of the spleen reveals mild to moderate splenomegaly at 16.2 x 6.3 cm. Electronically Signed: Molina Britt MD at 13:08 EDT ,
--- NOTE | 2022-05-11 10:57 | PN.HOSP_ITS ---
Documented by User: Jaylyn Jordan NP-C 05/11/22 11:06 Subjective Subjective Patient seen and examined following EGD and Colonoscopy, no distress noted. Objective Data Objective Data Vital Signs: Vital Signs Temp Pulse Resp BP Pulse Ox O2 Del Method O2 Flow Rate 98.2 F 65 15 109/56 L 96 Nasal Cannula 2 05/11/22 09:30 05/11/22 09:30 05/11/22 09:30 05/11/22 09:30 05/11/22 09:30 05/11/22 09:30 05/11/22 09:30 Oxygen Flow Rate (L/min) 2 Oxygen Delivery Method Nasal Cannula Weight: 288 lb 12.889 oz Body Mass Index (BMI) 35.2 Intake & Output: Intake and Output for Last 24 Hours 05/09/22 05/10/22 05/11/22 23:59 23:59 23:59 Intake Total 950 / 950 1151 / 1151 231.25 / 231.25 Balance 950 / 950 1151 / 1151 231.25 / 231.25 Lab / Micro Data Result Diagrams: 05/11/22 05:55 05/11/22 05:55 Labs: Laboratory Results - last 24 hr 05/10/22 05:36: Ferritin 285 05/10/22 07:41: Blood Type A POSITIVE, Antibody Screen NEGATIVE, Crossmatch See Detail 05/11/22 05:55: WBC 8.3, RBC 2.29 L, Hgb 8.0 L, Hct 24.7 L, MCV 107.9 H, MCH 34.9 H, MCHC 32.4, RDW Std Deviation 76.0 H, RDW Coeff of Chris 18.8 H, Plt Count 119 L, MPV 10.5, Immature Gran % (Auto) 0.200, Neut % (Auto) 53.4, Lymph % (Auto) 28.4, [place] % (Auto) 14.7 H, Eos % (Auto) 2.9, Baso % (Auto) 0.4, Absolute Neuts (auto) 4.5, Absolute Lymphs (auto) 2.36, Nucleated RBC % 0, Differential Comment SCANNED, Anisocytosis 2+, Macrocytosis 2+ 05/11/22 05:55: Sodium 138, Potassium 3.9, Chloride 105, Carbon Dioxide 24.0, Anion Gap 9, BUN 32 H, Creatinine 2.57 H, Estim Creat Clear Calc 42.69, Est GFR (MDRD) Af Amer 34 L, Est GFR (MDRD) Non-Af 28 L, BUN/Creatinine Ratio 12.5, Glucose 111 H, Calcium 8.7, Total Bilirubin 5.30 H, AST 69 H, ALT 39, Alkaline Phosphatase 80, Total Protein 7.5, Albumin 3.3, Globulin 4.2, Albumin/Globulin Ratio 0.8 L 05/11/22 05:55: APTT 44.0 H Physical Exam Const alert, oriented x3, no apparent distress and well nourished General Appearance: cooperative HEENT normocephalic, head/scalp atraumatic, hearing grossly normal bilaterally and moist oral mucous membranes Eyes Negative for conjunctivae normal Neck no lymphadenopathy and supple Neck Narrative: Trachea midline, no thyroid enlargement Resp normal respiratory effort and clear to auscultation bilaterally Cardio regular rate, regular rhythm, S1 normal heart sound and S2 normal heart sound GI normal to inspection, nondistended, normoactive bowel sounds, soft to palpation and non-tender GI Narrative: Stretch reyna, abdominal anasarca with pitting noted, umbilical hernia Palpation: hernia Extremity Extremity Narrative: 3+ pitting edema from feet to mid abdomen and back, no cyanosis or clubbing, decreased range of motion secondary to edema Skin No no rashes or lesions noted, No no wounds, skin turgor normal, no petechiae and no mottling Skin Narrative: Pale with jaundice, severe anasarca, spider angiomata noted on chest Neuro oriented x3, moves all extremities and no focal motor deficits Speech: speech normal Psych affect normal Psych Narrative: Affect is somewhat flattened mood seems depressed Assessment & Plan Assessment/Plan (1) Hypokalemia: (2) Anasarca: (3) Ascites due to chronic alcoholic hepatitis: (4) RON (acute kidney injury): PLAN: Plan 1.Severe anasarca -Continue octreotide drip and midodrine -Patient received albumin 50g x2 05/10/2022 -Continue Bumex 1 g 3 times daily -Limit fluids and salt intake -Gastroenterology following, EGD and colonoscopy completed today showed multiple angiodysplastic lesions with sure were treated with APC in both the colon and in the stomach. Patient was noted to have portal hypertensive gastropathy which was also treated with APC. There is concern for anterior or posterior nasal bleed and GI recommends ENT evaluation. 2. RON on CKD stage IIIb -Baseline serum creatinine appears to be 1.3-1.5 -Creatinine 2.57 today -Due to worsening RON in the presence of patient's cirrhosis [facility] will be called for transfer for higher level of care 3. Liver cirrhosis -Etiology is unknown at this time, workup pending with GI -Patient does have remote history of alcohol abuse at which time he drank approximately case a day for 10 years -No excessive drinking in the last 20 years and he currently admits to 1-2 beers weekly -MELD score 28, follows with GI -Hepatitis studies were negative 4. Chronic anemia/thrombocytopenia -Related to liver disease and splenomegaly -Stable, CBC daily 5. Hyperbilirubinemia -Total Bilirubin 5.30 6. Hypokalemia -Potassium 3.9, resolved -BMP daily 7. Recent upper GI bleed -EGD from 04/03/2022 showed a normal esophagus, portal hypertensive gastropathy, and 3 bleeding angiodysplastic lesions that were treated with argon beam as well as 1 nonbleeding duodenal ulcer with no stigmata of recent bleeding -Continue Protonix twice daily -Hemoglobin 8.0 today, received 1 unit PRBC 8. Hypertension -Hold losartan/hydrochlorothiazide -Continue home metoprolol -As needed hydralazine 9. Paroxysmal atrial fibrillation -NSR -Continue metoprolol and eliquis DVT prophylaxis-Chronically anticoagulated with Eliquis This patient was seen by Jaylyn Jordan NP-C under the supervision of Dr. Atwood. 14 minutes spent in clinical coordination of patient's plan of care. Documented by User: Dr. Ashly Atwood MD 05/11/22 12:36 Objective Data Lab / Micro Data Result Diagrams: 05/11/22 05:55 05/11/22 05:55 Assessment & Plan Assessment/Plan (1) Hypokalemia: (2) Anasarca: (3) Ascites due to chronic alcoholic hepatitis: (4) RON (acute kidney injury): Charges/Coding Addendum Addendum: This patient was seen in conjunction with Dima Jordan NP.? I have independently interviewed and examined the patient and reviewed pertinent historical, laboratory, and other data. I have reviewed her note and concur with her documentation Patient was seen and examined.? Patient underwent EGD today showed abnormal nasopharynx and oropharynx are abnormal. Red blood seen in esophagus. 2 bleeding AVM, treated with argon, plasma coagulation, portal hypertensive gastropathy treated with argon plasma coagulation, erythematous mucosa. Colonoscopy showed hemorrhoids, small and large mouth diverticula, 5 mm polyp that was removed with hot snare, 3 medium sized angiodysplastic lesions with bleeding, coagulation using argon plasma. Discussed with gastroenterology, recommend patient be transferred to [facility] transplant team to be evaluated for transplant in the light of hepatorenal syndrome Physical Exam: Gen: Comfortable, not pale, not jaundiced CVS:HS I +II, regular, no murmurs RESP: Diminished at lung bases GI: BS present and normal, soft, ascites ++, nontender, no palpable organs EXT: Bilateral leg edema +3 ASSESSMENT: 1. Severe anasarca 2. RON on CKD stage IIIb/hepatorenal syndrome 3. Cirrhosis of liver 4. Anemia, acute on chronic 5. Chronic thrombocytopenia 6. Hypokalemia 7. Recent upper GI bleed 8. Hypertension 9. Paroxysmal atrial fibrillation Plan: Nephrology consult IV albumin Continue IV Bumex, midodrine Repeat labs Visit Charges Inpatient E&M: 09635 Subs Hosp L3
[2022-05-11] MEDS: Phenylephrine 0.25% 15 ML NASAL.SRY 2 SPRAY NASAL ×3 (12:37→23:15)
[2022-05-11 13:06] LABS: Bedside Glucose 104 mg/dL (74-106)
[2022-05-11] MEDS: oxyCODONE 5 MG Tablet PO (14:59)
[2022-05-11 15:00] LABS: Bacteria 0 SEEN /hpf (None Seen); Mucous, Urine 0 SEEN /hpf (<or=2+); Red Blood Cells-Urine 0 SEEN /hpf (0-5); Squamous Epithelial Cells - UA 0 SEEN /hpf (0-5); White Blood Cells 0 SEEN /hpf (0-5)
[2022-05-11 15:04] LABS: Color, Urine Yellow (Yellow); Glucose, Dipstick Normal (Normal); Ketone-Dipstick Negative (Negative); Leukocyte Esterase-Dipstick Negative /ul (Negative); Nitrite-Dipstick Negative (Negative); Occult Blood-Urine Negative /ul (Negative); Protein-Dipstick Negative (Negative); Urine Bilirubin Dipstick Negative (Negative); Urine Clarity Clear (Clear); Urine Urobilinogen Normal (Normal)
[2022-05-11 15:37] LABS: Urea Nitrogen, Urine 323 mg/dL (NO RANGE EST.)
[2022-05-11 16:50] LABS: Bedside Glucose 133 mg/dL (74-106)
[2022-05-11 17:58] LABS: Hematocrit 24.3 % (40-54); Hemoglobin 7.7 g/dL (13.0-16.5)
[2022-05-11 18:32] LABS: Anion Gap 7 (5-15); BUN 32 mg/dL (7-18); BUN/Creat Ratio 12.3 RATIO (10-20); Calcium,Total 8.4 mg/dL (8.5-10.1); Chloride 107 mmol/L (98-107); EST Glomerular Filtration Rate 28 mL/min (>60); Est Glom Filt Rate - Afr Amer 34 mL/min (>60); Estimated Creatinine Clearance 42.19 ml/min; Glucose 137 mg/dL (74-106); Potassium 3.8 mmol/L (3.5-5.1); Sodium Level 139 mmol/L (136-145)
[2022-05-12 00:26] LABS: Hematocrit 24.1 % (40-54); Hemoglobin 7.7 g/dL (13.0-16.5)
[2022-05-12 04:00] VITALS: BP 139/58; PULSE 73; RESP 20; TEMP 37.1; O2SAT 94
[2022-05-12 05:00] LABS: Absolute Neutrophil Count 5.3 X10^3/uL (2.0-7.7); Basophil# 0.03 X10^3/uL; Basophil% 0.4 % (0-1); Eosinophil# 0.17 X10^3/uL; Hematocrit 23.6 % (40-54); Hemoglobin 7.5 g/dL (13.0-16.5); Lymphocyte % 20.4 % (19-41); Mean Corp Hgb Conc 31.8 g/dL (32-36); Mean Corpuscular Hgb 34.4 pg (27.0-32.0); Mean Corpuscular Volume 108.3 fL (80-94); Mean Platelet Vol. 10.6 fl (6.2-12.0); Monocyte# 1.08 X10^3/uL; NRBC Flagged by Analyzer 0 % (0-5); Neutrophil # 5.32 X10^3/uL (2.7-7.7); Neutrophil % 63.8 % (47-70); POSITIVE MORPHOLOGY YES; Platelet Count 125 K/mm3 (150-450); RBC Distribution Width CV 18.6 % (11.6-14.6); RBC Distribution Width SD 74.8 fl (35.1-43.9); Red Blood Count 2.18 M/mm3 (4.6-6.2); White Blood Count 8.3 K/mm3 (4.4-11.0)
[2022-05-12 05:23] LABS: ALB/GLOB Ratio 0.8 RATIO (0.9-2.4); AST(SGOT) 62 U/L (15-37); Alanine Aminotransfer ALT/SGPT 40 U/L (16-61); Albumin, Serum 3.2 g/dL (3.2-5.0); Alkaline Phosphatase 71 U/L (45-117); Anion Gap 10 (5-15); BUN 31 mg/dL (7-18); BUN/Creat Ratio 12.4 RATIO (10-20); Calcium,Total 8.6 mg/dL (8.5-10.1); Chloride 106 mmol/L (98-107); EST Glomerular Filtration Rate 29 mL/min (>60); Est Glom Filt Rate - Afr Amer 35 mL/min (>60); Estimated Creatinine Clearance 43.88 ml/min; Globulin 4.1 g/dL (2.2-4.2); Glucose 119 mg/dL (74-106); Potassium 3.6 mmol/L (3.5-5.1); Protein, Total 7.3 g/dL (6.4-8.2); Sodium Level 140 mmol/L (136-145)
[2022-05-12 05:27] LABS: Differential Indicated SCAN CRITERIA MET
[2022-05-12 06:00] VITALS: O2SAT 94
[2022-05-12 06:22] LABS: Anisocytosis 3+; Differential Comment SCANNED; Macrocytosis 3+
[2022-05-12 06:23] LABS: Hypochromasia 1+
[2022-05-12] MEDS: Phenylephrine 0.25% 15 ML NASAL.SRY 2 SPRAY NASAL ×4 (06:35→23:20)
[2022-05-12] MEDS: 0.9% Saline Lock 10 ML Syringe IV ×2 (06:35→21:23)
[2022-05-12] MEDS: Midodrine HCl 5 MG Tablet 10 MG PO ×3 (08:04→17:23)
[2022-05-12] MEDS: Pantoprazole Sodium 40 MG Tablet PO ×2 (08:04→21:22)
[2022-05-12 10:46] VITALS: BP 99/50; PULSE 74; RESP 18; TEMP 36.9; O2SAT 92
--- NOTE | 2022-05-12 11:02 | PCM.PN.HOSP ---
Documented by User: OSKAR Berumen 05/12/22 11:06 Subjective Subjective Patient seen and examined. Patient lying in bed asleep no distress noted. Objective Data Objective Data Vital Signs: Vital Signs Temp Pulse Resp BP Pulse Ox O2 Del Method O2 Flow Rate 98.4 F 74 18 99/50 L 92 Nasal Cannula 2 05/12/22 10:46 05/12/22 10:46 05/12/22 10:46 05/12/22 10:46 05/12/22 10:46 05/12/22 10:46 05/12/22 10:46 Oxygen Flow Rate (L/min) 2 Oxygen Delivery Method Nasal Cannula Weight: 293 lb 6.964 oz Body Mass Index (BMI) 35.2 Intake & Output: Intake and Output for Last 24 Hours 05/10/22 05/11/22 05/12/22 23:59 23:59 23:59 Intake Total 1151 / 1151 351.00 / 351.00 100 / 100 Balance 1151 / 1151 351.00 / 351.00 100 / 100 Lab / Micro Data Result Diagrams: 05/12/22 11:00 05/12/22 04:30 Labs: Laboratory Results - last 24 hr 05/11/22 12:35: POC Glucose 104 05/11/22 14:50: Urine Color Yellow, Urine Clarity Clear, Urine pH 6.0, Ur Specific [place] 1.010, Urine Protein Negative, Urine Glucose (UA) Normal, Urine Ketones Negative, Urine Occult Blood Negative, Urine Nitrite Negative, Urine Bilirubin Negative, Urine Urobilinogen Normal, Ur Leukocyte Esterase Negative, Urine RBC 0 SEEN, Urine WBC 0 SEEN, Ur Squamous Epith Cells 0 SEEN, Urine Bacteria 0 SEEN, Urine Mucus 0 SEEN 05/11/22 14:50: Urine Creatinine 116.00, Urine Urea Nitrogen 323 05/11/22 16:32: POC Glucose 133 H 05/11/22 17:45: Hgb 7.7 L, Hct 24.3 L 05/11/22 17:45: Sodium 139, Potassium 3.8, Chloride 107, Carbon Dioxide 25.0, Anion Gap 7, BUN 32 H, Creatinine 2.60 H, Estim Creat Clear Calc 42.19, Est GFR (MDRD) Af Amer 34 L, Est GFR (MDRD) Non-Af 28 L, BUN/Creatinine Ratio 12.3, Glucose 137 H, Calcium 8.4 L 05/12/22 00:15: Hgb 7.7 L, Hct 24.1 L 05/12/22 04:30: WBC 8.3, RBC 2.18 L, Hgb 7.5 L, Hct 23.6 L, MCV 108.3 H, MCH 34.4 H, MCHC 31.8 L, RDW Std Deviation 74.8 H, RDW Coeff of Chris 18.6 H, Plt Count 125 L, MPV 10.6, Immature Gran % (Auto) 0.400, Neut % (Auto) 63.8, Lymph % (Auto) 20.4, [place] % (Auto) 13.0 H, Eos % (Auto) 2.0, Baso % (Auto) 0.4, Absolute Neuts (auto) 5.3, Absolute Lymphs (auto) 1.70, Nucleated RBC % 0, Differential Comment SCANNED, Hypochromasia 1+, Anisocytosis 3+, Macrocytosis 3+ 05/12/22 04:30: Sodium 140, Potassium 3.6, Chloride 106, Carbon Dioxide 24.0, Anion Gap 10, BUN 31 H, Creatinine 2.50 H, Estim Creat Clear Calc 43.88, Est GFR (MDRD) Af Amer 35 L, Est GFR (MDRD) Non-Af 29 L, BUN/Creatinine Ratio 12.4, Glucose 119 H, Calcium 8.6, Total Bilirubin 4.10 H, AST 62 H, ALT 40, Alkaline Phosphatase 71, Total Protein 7.3, Albumin 3.2, Globulin 4.1, Albumin/Globulin Ratio 0.8 L Radiography Diagnostic Testing: Radiology Impression Renal Ultrasound 05/11/22 09:42 IMPRESSION: 1. The parenchymal echogenicity of both kidneys is diffusely and mildly to moderately increased, consistent with medical renal disease. 2. Visualized aspects of the liver reveal diffuse fatty infiltration and a small amount of perihepatic ascites. Included portions of the spleen reveals mild to moderate splenomegaly at 16.2 x 6.3 cm. Electronically Signed: Molina Britt MD at 13:08 EDT Reading Location ID and State: [facility] / [place] , Service support , Physical Exam Const alert, oriented x3, no apparent distress and well nourished General Appearance: cooperative HEENT normocephalic, head/scalp atraumatic, hearing grossly normal bilaterally and moist oral mucous membranes Eyes Negative for conjunctivae normal Neck no lymphadenopathy and supple Resp normal respiratory effort, no retractions, no use of accessory muscles and clear to auscultation bilaterally Cardio regular rate, regular rhythm, S1 normal heart sound and S2 normal heart sound GI normal to inspection, nondistended, normoactive bowel sounds, soft to palpation and non-tender GI Narrative: Stretch reyna, abdominal anasarca with pitting noted, umbilical hernia Palpation: hernia Extremity Extremity Narrative: 3+ pitting edema from feet to mid abdomen and back, no cyanosis or clubbing, decreased range of motion secondary to edema Skin No no wounds, skin turgor normal, No no jaundice, no petechiae and no mottling Skin Narrative: Pale with jaundice, severe anasarca, spider angiomata noted on chest Neuro oriented x3, moves all extremities and no focal motor deficits Neuro Narrative: No asterixis Speech: speech normal Psych affect normal Psych Narrative: Affect is somewhat flattened mood seems depressed Assessment & Plan Assessment/Plan (1) Hypokalemia: (2) Anasarca: (3) Ascites due to chronic alcoholic hepatitis: (4) RON (acute kidney injury): PLAN: Plan 1.Severe anasarca -Continue octreotide drip and midodrine -Patient received albumin 50g x2 05/10/2022 -Bumex discontinued by nephrology secondary to worsening RON -Limit fluids and salt intake -Gastroenterology following, EGD and colonoscopy completed today showed multiple angiodysplastic lesions with sure were treated with APC in both the colon and in the stomach. Patient was noted to have portal hypertensive gastropathy which was also treated with APC. There is concern for anterior or posterior nasal bleed and GI recommends ENT evaluation. 2. RON on CKD stage IIIb -Baseline serum creatinine appears to be 1.3-1.5 -Creatinine 2.50 today -Due to worsening RON in the presence of patient's cirrhosis [facility] will be called for transfer for higher level of care 3. Liver cirrhosis -Etiology is unknown at this time, workup pending with GI -Patient does have remote history of alcohol abuse at which time he drank approximately case a day for 10 years -No excessive drinking in the last 20 years and he currently admits to 1-2 beers weekly -MELD score 28, follows with GI -Hepatitis studies were negative 4. Chronic anemia/thrombocytopenia -Related to liver disease and splenomegaly -Stable, CBC daily 5. Hyperbilirubinemia -Total Bilirubin 4.10 6. Hypokalemia -Potassium 3.6, resolved -BMP daily 7. Recent upper GI bleed -EGD from 04/03/2022 showed a normal esophagus, portal hypertensive gastropathy, and 3 bleeding angiodysplastic lesions that were treated with argon beam as well as 1 nonbleeding duodenal ulcer with no stigmata of recent bleeding -Continue Protonix twice daily -Hemoglobin 7.5 today 8. Hypertension -Hold losartan/hydrochlorothiazide -Continue home metoprolol -As needed hydralazine 9. Paroxysmal atrial fibrillation -NSR -Continue metoprolol and eliquis DVT prophylaxis-Chronically anticoagulated with Eliquis This patient was seen by JOSUE BerumenC under the supervision of Dr. Atwood. 12 minutes spent in clinical coordination of patient's plan of care. Documented by User: Dr. Ashly Atwood MD 05/12/22 13:07 Objective Data Lab / Micro Data Result Diagrams: 05/12/22 11:00 05/12/22 04:30 Assessment & Plan Assessment/Plan (1) Hypokalemia: (2) Anasarca: (3) Ascites due to chronic alcoholic hepatitis: (4) RON (acute kidney injury): Charges/Coding Addendum Addendum: Addendum: This patient was seen in conjunction with Dima Jordan NP.? I have independently interviewed and examined the patient and reviewed pertinent historical, laboratory, and other data. I have reviewed her note and concur with her documentation Patient was seen and examined.? Overnight, he had some shortness of breath. He also noted bleeding from his right gum. He felt it was coming from his right molar dental caries. Physical Exam: Gen: Comfortable, not pale, not jaundiced, right lower molar dental caries with some stigmata of bleeding CVS:HS I +II, regular, no murmurs RESP: Diminished at lung bases GI: BS present and normal, soft, ascites +, nontender, no palpable organs EXT: Bilateral leg edema +2 ASSESSMENT: 1. Severe anasarca 2. RON on CKD stage IIIb/hepatorenal syndrome 3. Cirrhosis of liver 4. Anemia, acute on chronic 5. Chronic thrombocytopenia 6. Hypokalemia 7. Recent upper GI bleed 8. Hypertension 9. Paroxysmal atrial fibrillation Plan: Warm salt water mouth washes Outpatient dental appointment Continue with IV albumin Hold IV Bumex Continue midodrine Repeat labs Time spent coordinating patient's care, discussing with nursing, discussing with nursin minutes Visit Charges Inpatient E&M: 97339 Subs Hosp L2
[2022-05-12 11:12] LABS: Hematocrit 23.6 % (40-54); Hemoglobin 7.7 g/dL (13.0-16.5)
[2022-05-12] MEDS: oxyCODONE 5 MG Tablet PO (14:08)
--- NOTE | 2022-05-12 16:53 | PN.RENAL_ITS ---
Subjective Subjective No new complaints today Objective Data Objective Data Vital Signs: Vital Signs Temp Pulse Resp BP Pulse Ox O2 Del Method O2 Flow Rate 98.4 F 74 18 99/50 L 92 Room Air 2 05/12/22 10:46 05/12/22 10:46 05/12/22 10:46 05/12/22 10:46 05/12/22 10:46 05/12/22 12:00 05/12/22 10:46 Oxygen Flow Rate (L/min) 2 Oxygen Delivery Method Room Air Weight: 133.1 kg Body Mass Index (BMI) 35.2 Intake & Output: Intake and Output for Last 24 Hours 05/10/22 05/11/22 05/12/22 23:59 23:59 23:59 Intake Total 1151 / 1151 351.00 / 351.00 811 / 811 Balance 1151 / 1151 351.00 / 351.00 811 / 811 Lab / Micro Data Result Diagrams: 05/12/22 11:00 05/12/22 04:30 Labs: Laboratory Results - last 24 hr 05/11/22 17:45: Hgb 7.7 L, Hct 24.3 L 05/11/22 17:45: Sodium 139, Potassium 3.8, Chloride 107, Carbon Dioxide 25.0, Anion Gap 7, BUN 32 H, Creatinine 2.60 H, Estim Creat Clear Calc 42.19, Est GFR (MDRD) Af Amer 34 L, Est GFR (MDRD) Non-Af 28 L, BUN/Creatinine Ratio 12.3, Glucose 137 H, Calcium 8.4 L 05/12/22 00:15: Hgb 7.7 L, Hct 24.1 L 05/12/22 04:30: WBC 8.3, RBC 2.18 L, Hgb 7.5 L, Hct 23.6 L, MCV 108.3 H, MCH 34.4 H, MCHC 31.8 L, RDW Std Deviation 74.8 H, RDW Coeff of Chris 18.6 H, Plt Count 125 L, MPV 10.6, Immature Gran % (Auto) 0.400, Neut % (Auto) 63.8, Lymph % (Auto) 20.4, [place] % (Auto) 13.0 H, Eos % (Auto) 2.0, Baso % (Auto) 0.4, Absolute Neuts (auto) 5.3, Absolute Lymphs (auto) 1.70, Nucleated RBC % 0, Differential Comment SCANNED, Hypochromasia 1+, Anisocytosis 3+, Macrocytosis 3+ 05/12/22 04:30: Sodium 140, Potassium 3.6, Chloride 106, Carbon Dioxide 24.0, Anion Gap 10, BUN 31 H, Creatinine 2.50 H, Estim Creat Clear Calc 43.88, Est GFR (MDRD) Af Amer 35 L, Est GFR (MDRD) Non-Af 29 L, BUN/Creatinine Ratio 12.4, Glucose 119 H, Calcium 8.6, Total Bilirubin 4.10 H, AST 62 H, ALT 40, Alkaline Phosphatase 71, Total Protein 7.3, Albumin 3.2, Globulin 4.1, Albumin/Globulin Ratio 0.8 L 05/12/22 11:00: Hgb 7.7 L, Hct 23.6 L Physical Exam Narrative Alert awake oriented x 3 no obvious distress no pallor no icterus no JVD s1s2 no murmurs lungs clear abdomen soft no organomegaly +++ edema no cyanosis Assessment & Plan Assessment/Plan (1) RON (acute kidney injury): PLAN: Baseline creatinine was normal. History of cirrhosis, recently diagnosed, hepatitis panel negative. Urine sodium is less than 20. Massively volume overloaded. No response to IV fluids in the past. Currently on maximum hepatorenal syndrome treatment including albumin, octreotide, midodrine. Recommend transfer to [facility] or [facility] for transplant evaluation. Patient is agreeable to get transferred. Discussed with hospitalist. He is waiting for a bed. Discussed with family at bedside, all questions answered.
[2022-05-12 17:46] VITALS: BP 135/62; PULSE 65; RESP 16; TEMP 36.8; O2SAT 94
[2022-05-12 20:15] VITALS: BP 158/65; PULSE 66; RESP 20; TEMP 36.6; O2SAT 94
[2022-05-13] VITALS (9 sets, daily range): BP systolic 123–158; BP diastolic 49–70; PULSE 74–82; RESP 18–21; TEMP 36.5–37.2; O2SAT 92–96
[2022-05-13] MEDS: 0.9% Saline Lock 10 ML Syringe IV ×3 (05:55→23:04)
[2022-05-13] MEDS: Phenylephrine 0.25% 15 ML NASAL.SRY 2 SPRAY NASAL (05:56)
[2022-05-13 06:20] LABS: Absolute Lymphocyte Count 1.75 X10^3/uL (0.83-4.51); Absolute Neutrophil Count 4.5 X10^3/uL (2.0-7.7); Basophil# 0.02 X10^3/uL; Basophil% 0.3 % (0-1); Eosinophil# 0.18 X10^3/uL; Eosinophils% 2.4 % (0-5); Hematocrit 22.2 % (40-54); Hemoglobin 7.2 g/dL (13.0-16.5); Lymphocyte # 1.75 X10^3/ul (0.83-4.51); Lymphocyte % 23.6 % (19-41); Mean Corp Hgb Conc 32.4 g/dL (32-36); Mean Corpuscular Hgb 35.5 pg (27.0-32.0); Mean Corpuscular Volume 109.4 fL (80-94); Mean Platelet Vol. 10.2 fl (6.2-12.0); Monocyte# 0.98 X10^3/uL; Monocyte% 13.2 % (0-10); NRBC Flagged by Analyzer 0 % (0-5); Neutrophil # 4.45 X10^3/uL (2.7-7.7); Neutrophil % 60.1 % (47-70); POSITIVE MORPHOLOGY YES; Platelet Count 113 K/mm3 (150-450); RBC Distribution Width CV 18.5 % (11.6-14.6); RBC Distribution Width SD 73.7 fl (35.1-43.9); Red Blood Count 2.03 M/mm3 (4.6-6.2); White Blood Count 7.4 K/mm3 (4.4-11.0)
[2022-05-13 06:27] LABS: Differential Indicated SCAN CRITERIA MET
[2022-05-13 07:05] LABS: ALB/GLOB Ratio 0.9 RATIO (0.9-2.4); AST(SGOT) 53 U/L (15-37); Alanine Aminotransfer ALT/SGPT 34 U/L (16-61); Albumin, Serum 3.6 g/dL (3.2-5.0); Alkaline Phosphatase 67 U/L (45-117); Anion Gap 9 (5-15); BUN 27 mg/dL (7-18); BUN/Creat Ratio 12.2 RATIO (10-20); Calcium,Total 8.7 mg/dL (8.5-10.1); Chloride 108 mmol/L (98-107); Creatinine, Serum 2.22 mg/dL (0.70-1.30); EST Glomerular Filtration Rate 34 mL/min (>60); Est Glom Filt Rate - Afr Amer 41 mL/min (>60); Estimated Creatinine Clearance 49.42 ml/min; Globulin 3.9 g/dL (2.2-4.2); Glucose 106 mg/dL (74-106); Potassium 3.6 mmol/L (3.5-5.1); Protein, Total 7.5 g/dL (6.4-8.2); Sodium Level 140 mmol/L (136-145)
[2022-05-13 07:16] LABS: Anisocytosis 1+; Platelet Estimate SLT DEC (ADEQ); Red Cell Morphology N CHROM NORMAL (NORM C&C)
[2022-05-13] MEDS: Midodrine HCl 5 MG Tablet 10 MG PO ×3 (07:37→16:51)
[2022-05-13] MEDS: Albuterol 2.5 MG/3 ML VIAL.NEB. INHALATION ×3 (07:39→14:46)
--- NOTE | 2022-05-13 08:11 | PN.HOSP_ITS ---
Subjective Subjective Patient is a 51-year-old gentleman admitted with anasarca. Has underlying history of cirrhosis of the liver. Consultation was placed to GI patient underwent EGD and colonoscopy found to have multiple angiodysplastic lesions in the colon and the stomach treated with APC. Patient was found to have worsening kidney function. Call was placed to [facility] to have patient transferred Objective Data Objective Data Vital Signs: Vital Signs Temp Pulse Resp BP Pulse Ox O2 Del Method O2 Flow Rate 98.3 F 82 20 H 133/70 H 92 Nasal Cannula 2 05/13/22 07:35 05/13/22 07:39 05/13/22 07:59 05/13/22 07:35 05/13/22 07:39 05/13/22 07:59 05/13/22 07:59 Oxygen Flow Rate (L/min) 2 Oxygen Delivery Method Nasal Cannula Weight: 133.1 kg Body Mass Index (BMI) 35.2 Intake & Output: Intake and Output for Last 24 Hours 05/11/22 05/12/22 05/13/22 23:59 23:59 23:59 Intake Total 351.00 / 351.00 1391 / 1391 Output Total 900 / 900 Balance 351.00 / 351.00 1391 / 491 -900 / -900 Lab / Micro Data Result Diagrams: 05/13/22 05:55 05/13/22 05:55 Labs: Laboratory Results - last 24 hr 05/12/22 11:00: Hgb 7.7 L, Hct 23.6 L 05/13/22 05:55: WBC 7.4, RBC 2.03 L, Hgb 7.2 L, Hct 22.2 L, MCV 109.4 H, MCH 35.5 H, MCHC 32.4, RDW Std Deviation 73.7 H, RDW Coeff of Chris 18.5 H, Plt Count 113 L, MPV 10.2, Immature Gran % (Auto) 0.400, Neut % (Auto) 60.1, Lymph % (A uto) 23.6, [place] % (Auto) 13.2 H, Eos % (Auto) 2.4, Baso % (Auto) 0.3, Absolute Neuts (auto) 4.5, Absolute Lymphs (auto) 1.75, Nucleated RBC % 0, Platelet Estimate SLT DEC, RBC Morphology N CHROM, Anisocytosis 1+ 05/13/22 05:55: Sodium 140, Potassium 3.6, Chloride 108 H, Carbon Dioxide 23.0, Anion Gap 9, BUN 27 H, Creatinine 2.22 H, Estim Creat Clear Calc 49.42, Est GFR (MDRD) Af Amer 41 L, Est GFR (MDRD) Non-Af 34 L, BUN/Creatinine Ratio 12.2, Glucose 106, Calcium 8.7, Total Bilirubin 4.70 H, AST 53 H, ALT 34, Alkaline Phosphatase 67, Total Protein 7.5, Albumin 3.6, Globulin 3.9, Albumin/Globulin Ratio 0.9 Physical Exam Narrative GENERAL: cooperative HEENT: Atraumatic; EYES; anicteric NECK; supple, normal thyroid, RESPIRATORY: Diminished to auscultation CARDIOVASCULAR: Regular S1 S2, GI: soft, normoactive bowel sounds, : No Renal angle tenderness; EXTREMITIES: edema, no clubbing, MUSCULOSKELETAL: no muscle wasting NEURO: Awake; no lateralizing signs. SKIN: No Rash PSYCH; Flat affect Assessment & Plan Assessment/Plan (1) Hypokalemia: (2) Anasarca: (3) Ascites due to chronic alcoholic hepatitis: (4) RON (acute kidney injury): PLAN: Plan Patient is a 51-year-old gentleman admitted with anasarca. Has underlying history of cirrhosis of the liver. Consultation was placed to GI patient underwent EGD and colonoscopy found to have multiple angiodysplastic lesions in the colon and the stomach treated with APC. Patient was found to have worsening kidney function. Call was placed to [facility] to have patient transferred 1. Cirrhosis of the liver with anasarca ? Patient managed with octreotide and midodrine. Also did receive 100 g of albumin on 05/10/2022 2. Anemia ? Secondary to acute blood loss anemia superimposed on anemia of chronic disorder; from angiodysplastic lesions in both the stomach and colon.Consultation was placed to GI patient underwent EGD and colonoscopy found to have multiple angiodysplastic lesions in the colon and the stomach treated with APC. 3. Acute kidney injury ? Secondary to hepatorenal syndrome. Consult was placed to nephrology recommendation was made for patient to be transferred to [facility] 4. Cirrhosis of the liver ? Etiology not clear;Patient has remote history of alcohol use otherwise unremarkable 5. Trouble cytopenia ? Secondary to chronic liver disease 6. Essential hypertension ? Patient is on losartan and HCTZ held in view of worsening kidney function did continue with metoprolol in addition to hydralazine as needed 7. Paroxysmal A. fib ? Rate controlled on systemic anticoagulation with Eliquis 8. GERD ? On PPI 9. Class II obesity with BMI of 35.7 ? Weight loss advised 10. DVT prophylaxis ? Eliquis Charges/Coding Visit Charges Inpatient E&M: 95760 Subs Hosp L2
[2022-05-13] MEDS: Pantoprazole Sodium 40 MG Tablet PO (09:53)
--- NOTE | 2022-05-13 12:38 | PN.RENAL_ITS ---
Subjective Subjective Patient feels okay today but more short of breath Blood pressure stable Objective Data Objective Data Vital Signs: Vital Signs Temp Pulse Resp BP Pulse Ox O2 Del Method O2 Flow Rate 98.3 F 77 21 H 133/70 H 92 Nasal Cannula 2 05/13/22 07:35 05/13/22 11:07 05/13/22 11:07 05/13/22 07:35 05/13/22 07:39 05/13/22 07:59 05/13/22 07:59 Oxygen Flow Rate (L/min) 2 Oxygen Delivery Method Nasal Cannula Weight: 133.1 kg Body Mass Index (BMI) 35.2 Intake & Output: Intake and Output for Last 24 Hours 05/11/22 05/12/22 05/13/22 23:59 23:59 23:59 Intake Total 351.00 / 351.00 1391 / 1391 100 / 100 Output Total 900 / 900 Balance 351.00 / 351.00 1391 / 491 -800 / -800 Lab / Micro Data Result Diagrams: 05/13/22 05:55 05/13/22 05:55 Labs: Laboratory Results - last 24 hr 05/13/22 05:55: WBC 7.4, RBC 2.03 L, Hgb 7.2 L, Hct 22.2 L, MCV 109.4 H, MCH 35.5 H, MCHC 32.4, RDW Std Deviation 73.7 H, RDW Coeff of Chris 18.5 H, Plt Count 113 L, MPV 10.2, Immature Gran % (Auto) 0.400, Neut % (Auto) 60.1, Lymph % (Auto) 23.6, Real % (Auto) 13.2 H, Eos % (Auto) 2.4, Baso % (Auto) 0.3, Absolute Neuts (auto) 4.5, Absolute Lymphs (auto) 1.75, Nucleated RBC % 0, Platelet Estimate SLT DEC, RBC Morphology N CHROM, Anisocytosis 1+ 05/13/22 05:55: Sodium 140, Potassium 3.6, Chloride 108 H, Carbon Dioxide 23.0, Anion Gap 9, BUN 27 H, Creatinine 2.22 H, Estim Creat Clear Calc 49.42, Est GFR (MDRD) Af Amer 41 L, Est GFR (MDRD) Non-Af 34 L, BUN/Creatinine Ratio 12.2, Glucose 106, Calcium 8.7, Total Bilirubin 4.70 H, AST 53 H, ALT 34, Alkaline Phosphatase 67, Total Protein 7.5, Albumin 3.6, Globulin 3.9, Albumin/Globulin Ratio 0.9 Physical Exam Narrative Patient is alert responsive O[place]ucosa is dry S1-S2 slightly tachycardic Breath sounds are diminished Abdomen is obese nontender Positive for edema extending to abdomen Assessment & Plan Assessment/Plan (1) RON (acute kidney injury): PLAN: Baseline creatinine was normal. History of cirrhosis, recently diagnosed, hepatitis panel negative. Urine sodium is less than 20. Massively volume overloaded. No response to IV fluids in the past. Currently on maximum hepatorenal syndrome treatment including albumin, octreotide, midodrine. Recommend transfer to [facility] or [facility] for transplant evaluation. Patient is agreeable to get transferred. Discussed with hospitalist. He is waiting for a bed. Discussed with family at bedside, all questions answered. 05/13 -Blood pressure stable -Volume still expanded -Renal function is fairly stable on combination of albumin and midodrine octreotide -Main issues appears to be worsening shortness of breath and volume overload, prior chest x-ray on presentation relatively unremarkable -We will repeat chest x-ray today -Await transfer to [facility] when bed is available Thank you please call [phone] with any concerns
--- NOTE | 2022-05-13 12:40 | RAD_ITS ---
STUDY: X-RAY CHEST REASON FOR EXAM: Male, 51 years old. Sob TECHNIQUE: Single AP portable view of the chest. COMPARISON: Comparison is made with prior study of 05/09/2022. FINDINGS: There is evidence of vascular congestion and mild degree of CHF. There is no demonstrated pleural abnormality. There is borderline cardiomegaly. Normal mediastinum and kumar. Normal visualized pulmonary arteries. There is atherosclerotic tortuosity of the aortic arch and descending thoracic aorta. There are diffuse degenerative changes of the visualized thoracic spine. Normal visualized ribs, clavicles, and shoulders. There is no demonstrated abnormality of the visualized soft tissue structures of the upper abdomen. RAD/Chest 1 View (Portable) IMPRESSION: Borderline cardiomegaly. Vascular congestion and mild degree of CHF. Electronically Signed: Ulises Jameson MD at 13:47 EDT ,
[2022-05-13 14:08] LABS: Anti-Centromere B Ab <0.2 AI (0.0-0.9); Anti-Chromatin <0.2 AI (0.0-0.9); Anti-Jo <0.2 AI (0.0-0.9); Anti-Scleroderma-70 AB <0.2 AI (0.0-0.9); RNP Ab 0.3 AI (0.0-0.9); SJOGREN'S Anti-SS-A test < 0.2 AI (0.0-0.9); SJOGREN'S Anti-SS-B test 0.2 AI (0.0-0.9); Smith Ab <0.2 AI (0.0-0.9)
[2022-05-13] MEDS: Albumin Human 25% (100 mL) 25 GM/100 ML BAG IV (14:59)
[2022-05-13 16:08] LABS: Alpha Antitrypsin Serum 171 mg/dL (101-187); Anti-Mitochondrial AB <20.0 Units (0.0-20.0); Anti-dsDNA Ab <1 IU/mL (0-9)
[2022-05-13] MEDS: Furosemide 40 MG/4 ML Vial IV (18:20)
[2022-05-13] MEDS: Ondansetron 4 MG/2 ML Vial IV (23:04)
[2022-05-14] VITALS (25 sets, daily range): BP systolic 126–172; BP diastolic 51–110; PULSE 80–111; RESP 18–48; TEMP 36.8–37.8; O2SAT 91–99
[2022-05-14] MEDS: Lactulose 20 GM/30 ML UDC 15 GM PO (00:12)
[2022-05-14] MEDS: LORazepam 2 MG/ML Syringe 0.5 MG IV (05:45)
[2022-05-14 06:47] LABS: Absolute Lymphocyte Count 1.39 X10^3/uL (0.83-4.51); Absolute Neutrophil Count 5.5 X10^3/uL (2.0-7.7); Basophil# 0.03 X10^3/uL; Basophil% 0.4 % (0-1); Eosinophil# 0.16 X10^3/uL; Eosinophils% 1.9 % (0-5); Hematocrit 22.1 % (40-54); Hemoglobin 6.9 g/dL (13.0-16.5); Lymphocyte # 1.39 X10^3/ul (0.83-4.51); Lymphocyte % 16.9 % (19-41); Mean Corp Hgb Conc 31.2 g/dL (32-36); Mean Corpuscular Hgb 33.8 pg (27.0-32.0); Mean Corpuscular Volume 108.3 fL (80-94); Mean Platelet Vol. 10.5 fl (6.2-12.0); Monocyte# 1.14 X10^3/uL; Monocyte% 13.9 % (0-10); NRBC Flagged by Analyzer 0 % (0-5); Neutrophil # 5.46 X10^3/uL (2.7-7.7); Neutrophil % 66.4 % (47-70); POSITIVE MORPHOLOGY YES; Platelet Count 118 K/mm3 (150-450); RBC Distribution Width CV 18.6 % (11.6-14.6); RBC Distribution Width SD 75.6 fl (35.1-43.9); Red Blood Count 2.04 M/mm3 (4.6-6.2); White Blood Count 8.2 K/mm3 (4.4-11.0)
[2022-05-14 06:57] LABS: Differential Indicated SCAN CRITERIA MET
[2022-05-14 07:02] LABS: Macrocytosis 3+
[2022-05-14 07:03] LABS: Anisocytosis 3+
[2022-05-14 07:34] LABS: AST(SGOT) 44 U/L (15-37); Alanine Aminotransfer ALT/SGPT 32 U/L (16-61); Albumin, Serum 3.7 g/dL (3.2-5.0); Alkaline Phosphatase 64 U/L (45-117); Anion Gap 10 (5-15); BUN 25 mg/dL (7-18); BUN/Creat Ratio 11.6 RATIO (10-20); Chloride 109 mmol/L (98-107); Creatinine, Serum 2.15 mg/dL (0.70-1.30); EST Glomerular Filtration Rate 35 mL/min (>60); Est Glom Filt Rate - Afr Amer 42 mL/min (>60); Estimated Creatinine Clearance 51.03 ml/min; Globulin 3.8 g/dL (2.2-4.2); Glucose 100 mg/dL (74-106); Potassium 3.6 mmol/L (3.5-5.1); Protein, Total 7.5 g/dL (6.4-8.2); Sodium Level 141 mmol/L (136-145)
--- NOTE | 2022-05-14 07:34 | PN.HOSP_ITS ---
Subjective Subjective Notified by nursing staff regarding patient breathing being labored. Patient seen and accessed using accessory muscles in breathing patient is diaphoretic auscultation of the lungs demonstrated bilateral crackles. Chest x-ray obtained today prior had reported mild CHF. Patient started on Lasix and Aldactone Degroot catheter placed placed on supplemental oxygen transferred to the intensive care unit. Hemoglobin is down to 6.9 plan is for patient to be transfused with 1 unit PRBC. Transfer to [facility] still pending Objective Data Objective Data Vital Signs: Vital Signs Temp Pulse Resp BP Pulse Ox O2 Del Method O2 Flow Rate 98.3 F 88 18 150/72 H 95 Nasal Cannula 2 05/14/22 03:00 05/14/22 03:00 05/14/22 03:00 05/14/22 03:00 05/14/22 07:27 05/14/22 07:27 05/14/22 07:27 Oxygen Flow Rate (L/min) 2 Oxygen Delivery Method Nasal Cannula Weight: 133.8 kg Body Mass Index (BMI) 35.2 Intake & Output: Intake and Output for Last 24 Hours 05/12/22 05/13/22 05/14/22 23:59 23:59 23:59 Intake Total 1391 / 1391 1031 / 1031 200 / 200 Output Total 1150 / 1150 500 / 500 Balance 1391 / 491 -119 / -119 -300 / -300 Lab / Micro Data Result Diagrams: 05/14/22 05:56 05/14/22 05:56 Labs: Laboratory Results - last 24 hr 05/11/22 05:55: [id number] 171, IVAN-1 Antibody <0.2, SS-A/Ro IgG Ant ibody < 0.2, SS-B/La IgG Antibody 0.2, Sm (Benjamin) Antibody <0.2, [employer]ATOR Antibody 0.3, Scl-70 Scleroderma Ab <0.2, Double Strand DNA Ab <1, Centromere B Antibody <0.2, Anti-Mitochondrial Ab <20.0 05/13/22 18:49: Ammonia 143.0 H 05/14/22 05:56: WBC 8.2, RBC 2.04 L, Hgb 6.9 L, Hct 22.1 L, MCV 108.3 H, MCH 33.8 H, MCHC 31.2 L, RDW Std Deviation 75.6 H, RDW Coeff of Chris 18.6 H, Plt Count 118 L, MPV 10.5, Immature Gran % (Auto) 0.500, Neut % (Auto) 66.4, Lymph % (Auto) 16.9 L, [place] % (Auto) 13.9 H, Eos % (Auto) 1.9, Baso % (Auto) 0.4, Absolute Neuts (auto) 5.5, Absolute Lymphs (auto) 1.39, Nucleated RBC % 0, Anisocytosis 3+, Macrocytosis 3+ 05/14/22 05:56: Sodium 141, Potassium 3.6, Chloride 109 H, Carbon Dioxide 22.0, Anion Gap 10, BUN 25 H, Creatinine 2.15 H, Estim Creat Clear Calc 51.03, Est GFR (MDRD) Af Amer 42 L, Est GFR (MDRD) Non-Af 35 L, BUN/Creatinine Ratio 11.6, Glucose 100, Calcium 9.0, Total Bilirubin 5.60 H, AST 44 H, ALT 32, Alkaline Phosphatase 64, Total Protein 7.5, Albumin 3.7, Globulin 3.8, Albumin/Globulin Ratio 1.0 Radiography Diagnostic Testing: Radiology Impression Chest X-Ray 05/13/22 12:40 IMPRESSION: Borderline cardiomegaly. Vascular congestion and mild degree of CHF. Electronically Signed: Ulises Jameson MD at 13:47 EDT Reading Location ID and State: [address] [place] [address] , Service support , Physical Exam Narrative GENERAL: Dyspneic at rest using accessory muscles in breathing HEENT: Atraumatic; EYES; Icteric NECK; supple, normal thyroid, RESPIRATORY: Diminished to auscultation, tachypneic CARDIOVASCULAR: Regular S1 S2, GI: soft, normoactive bowel sounds, : No Renal angle tenderness; EXTREMITIES: edema, no clubbing, MUSCULOSKELETAL: no muscle wasting NEURO: Encephalopathic SKIN: No Rash PSYCH; encephalopathic Assessment & Plan Assessment/Plan (1) Hypokalemia: (2) Anasarca: (3) Ascites due to chronic alcoholic hepatitis: (4) RON (acute kidney injury): PLAN: Plan Patient is a 51-year-old gentleman admitted with anasarca. Has underlying history of cirrhosis of the liver. Consultation was placed to GI patient underwent EGD and colonoscopy found to have multiple angiodysplastic lesions in the colon and the stomach treated with APC. Patient was found to have worsening kidney function. Call was placed to [facility] to have patient transferred 1. Acute hypoxic respiratory failure ? Secondary to pulmonary edema from patient anasarca as a result of his cirrhosis of the liver. Patient was transferred to the intensive care unit please on noninvasive ventilation started on Lasix and Aldactone. Consultation placed to pulmonary medicine Case discussed with Dr. Gu prior to patient being transferred to the ICU 2. Anemia ? Secondary to acute blood loss anemia superimposed on anemia of chronic disorder; from angiodysplastic lesions in both the stomach and colon.Co nsultation was placed to GI patient underwent EGD and colonoscopy found to have multiple angiodysplastic lesions in the colon and the stomach treated with APC. -05/14/2022 with patient hemoglobin dropping to 6.9 and order was given for patient to be transfused 1 unit PRBC. Patient was on Eliquis discontinued 3. Acute hepatic encephalopathy ? Patient level of sensorium deteriorating. Ammonia level obtained the day prior was 143 patient is on Aldactone 4.. Cirrhosis of the liver with anasarca ? Patient managed with octreotide and midodrine. Also did receive 100 g of albumin on 05/10/2022 5.. Acute kidney injury ? Secondary to hepatorenal syndrome. Consult was placed to nephrology recom mendation was made for patient to be transferred to [facility] 6. Thrombocytopenia ? Secondary to chronic liver disease 7. Essential hypertension ? Patient is on losartan and HCTZ held in view of worsening kidney function did continue with metoprolol in addition to hydralazine as needed 8. Paroxysmal A. fib ? Rate controlled on systemic anticoagulation with Eliquis -05/14/2022's Eliquis discontinued in view of worsening anemia 9. GERD ? On PPI 10. Class II obesity with BMI of 35.7 ? Weight loss advised 11. DVT prophylaxis ? Was on Eliquis discontinued bilateral SCDs for now Charges/Coding Visit Charges Inpatient E&M: 34211 [facility] Hosp L3
--- NOTE | 2022-05-14 08:53 | NURSING ---
Transfer line called for update at [facility]. No beds available at this time. Will keep patient on list for transfer. Dr. Isis renee.
[2022-05-14] MEDS: Furosemide 40 MG/4 ML Vial IV ×4 (09:02→22:28)
[2022-05-14] MEDS: 0.9% Saline Lock 10 ML Syringe IV ×3 (09:02→15:24)
--- NOTE | 2022-05-14 09:27 | EX.PCM.CONCC ---
Assessment & Plan Assessment/Plan (1) Cirrhosis: PLAN: Plan RECOMMENDATIONS: 1. Place NG tube to facilitate administration of lactulose and rifaximin. 2. Obtain arterial blood gas. 3. Continue octreotide, albumin and midodrine. 4. Continue diuresis as tolerated by hemodynamics and renal function. 5. Wean supplemental oxygen to maintain saturations at or above 90%. 6. Await transfer to tertiary care facility. IMPRESSIONS: 1. Decompensated cirrhosis The patient presented to the hospital with worsening ascites in the setting of a known history of alcohol related cirrhosis. He has been medically managed by gastroenterology with worsening in his respiratory status noted this morning. The patient likely has concurrent hepatorenal syndrome, which is being medically managed with octreotide, albumin and midodrine. The patient is awaiting transfer to a tertiary care facility for transplant evaluation. 2. Hypoxemia Secondary to pulmonary vascular congestion in the setting of decompensated cirrhosis related to hypervolemia. Continue medical management as noted above with diuretics and supplemental oxygen to maintain saturations at or above 90%. 3. Hepatic encephalopathy The patient is quite altered secondary to hyperammonemia in the setting of cirrhosis. I did call and speak with gastroenterology today. They indicated the potential need for NG tube to facilitate lactulose and rifaximin administration. 4. Acute kidney injury Clinical concern for hepatorenal syndrome. Nephrology is currently following to assist with medical management. Continue diuresis as tolerated by hemodynamics and renal function. 5. Anemia/thrombocytopenia Related to his underlying liver disease. Given that his hemoglobin is now less than 7 g/dL, recommend transfusion of blood products. Check H&H posttransfusion. Continue PPI therapy as ordered. 6. Paroxysmal atrial fibrillation Continue to hold home Eliquis for now. This note was generated with [employer] dictation software. It may contain incorrect words, spelling, and punctuation that were not noted in checking the note before signing. HPI Consult Data Date of Consult: 05/14/22 HPI Narrative Reason for Consultation: Acute hypoxemic respiratory failure HPI Narrative: The patient is a 51-year-old male, with a history as outlined below, who presented to the emergency department on May 09 with worsening edema. The patient has a history of GERD/GI bleeding, and alcohol-related cirrhosis, with what is likely hepatorenal syndrome. On presentation to the emergency department, the patient was noted to be afebrile and hemodynamically stable. He was initially documented to be saturating well on room air. Initial laboratory evaluation revealed a hemoglobin of 7.3 g/dL with a platelet count of 104,000. Coagulation profile demonstrated an INR of 1.8. Chemistry profile was notable for a potassium of 3.4 with a creatinine of 1.85. Total bili was increased to 4.0 with an AST of 58. The patient was initially admitted to the hospital and seen in consultation by gastroenterology. He has been medically managed with octreotide, Protonix, IV Lasix and albumin. On May 11, the patient underwent upper and lower endoscopy. 2 bleeding angiodysplastic lesions were noted in the stomach, which were treated with APC. Portal hypertensive gastropathy was also noted. Ultimately, following evaluation by nephrology as well, the recommendation was made to transfer to a tertiary care facility to be considered for potential transplant. On the morning of May 14, the patient developed worsening in his mentation and respiratory status. He was then transferred to the medical intensive care unit. His hemoglobin today is down to 6.9 g/dL. Platelet count remains low at 118,000. Creatinine remains elevated at 2.15. Total bili has increased to 5.6. Ammonia level is elevated to 143. [facility] Medical History (Updated 05/10/22 @ 16:[address] Shields Friend, DO) Afib Chronic anemia Cirrhosis Former smoker GI bleed History of alcohol abuse Hyperbilirubinemia Hypertension Hypoalbuminemia Irregular heart beat Macrocytic anemia Mild intermittent asthma Pancreatitis Portal hypertension Resistant hypertension Splenomegaly Stage 3b chronic kidney disease (CKD) Thrombocytopenia Home Medications apixaban 5 mg tablet (Eliquis) 5 mg PO BID 04/02/22 [History Last Taken Unknown] furosemide 40 mg tablet 40 mg PO DAILY 04/02/22 [History Last Taken Unknown] losartan 100 mg-hydrochlorothiazide 12.5 mg tablet 1 tab PO DAILY 04/02/22 [History Last Taken Unknown] metoprolol succinate 100 mg tablet,extended release 24 hr 100 mg PO DAILY 04/02/22 [History Last Taken Unknown] potassium chloride 10 mEq tablet,extended release(part/cryst) 20 meq PO DAILY supplement 04/02/22 [History Last Taken Unknown] pantoprazole 40 mg tablet,delayed release 40 mg PO BID 30 days #60 tabs 04/05/22 [Rx Last Taken Unknown] albuterol sulfate 90 mcg/actuation aerosol inhaler 2 inh inhalation Q4H PRN PRN breathing 05/09/22 [History Last Taken Unknown] Allergy/AdvReac Type Severity Reaction Status Date / Time fish derived Allergy Anaphylaxis Verified 05/09/22 12:15 Penicillins Allergy Hives Verified 05/09/22 12:15 Family History (Updated 05/09/22 @ 15:[address] Rhina Varghese DO) Father Liver disease Other Aortic valve disease CAD (coronary artery disease) COPD (chronic obstructive pulmonary disease) Cancer Hyperlipidemia Hypertension Surgical History History of mandibular surgery S/P hernia surgery Social History (Updated 05/09/22 @ 15:[address] Rhina Varghese DO) household members: spouse housing: house current occupational status: employed current occupation: Works in the [employer] business Smoking Status: Former smoker Smokeless tobacco user: chewing tobacco how long ago did patient quit smokin yrs alcohol intake: former details: Last drink was 2021 substance use type: does not use ROS Review of Systems ROS Unobtainable: due to mental status Physical Exam Const General Appearance: in distress, lethargic and ill appearing Orientation / Consciousness: confused and disoriented Nutritional Appearance: obese HEENT normocephalic and head/scalp atraumatic Eyes PERRL and EOMs intact bilaterally Neck supple General: trachea midline Resp Effort and Inspection: tachypneic and labored Auscultation: rales and diminished lung sounds Cardio S1 normal heart sound and S2 normal heart sound Rate: tachycardic GI soft to palpation and non-tender Inspection: abdominal distention Extremity General Extremity: edema Neuro moves all extremities Neuro Narrative: The patient is encephalopathic Psych Activity / Motor Behavior: restless Lab / Micro Data Result Diagrams: 05/14/22 05:56 05/14/22 05:56 Labs: Laboratory Results - last 24 hr 05/11/22 05:55: [id number] 171, IVAN-1 Antibody <0.2, SS-A/Ro IgG Antibody < 0.2, SS-B/La IgG Antibody 0.2, Sm (Benjamin) Antibody <0.2, MANAGER MONITORING Antibody 0.3, Scl-70 Scleroderma Ab <0.2, Double Strand DNA Ab <1, Centromere B Antibody <0.2, Anti-Mitochondrial Ab <20.0 05/13/22 18:49: Ammonia 143.0 H 05/14/22 05:56: WBC 8.2, RBC 2.04 L, Hgb 6.9 L, Hct 22.1 L, MCV 108.3 H, MCH 33.8 H, MCHC 31.2 L, RDW Std Deviation 75.6 H, RDW Coeff of Chris 18.6 H, Plt Count 118 L, MPV 10.5, Immature Gran % (Auto) 0.500, Neut % (Auto) 66.4, Lymph % (Auto) 16.9 L, [place] % (Auto) 13.9 H, Eos % (Auto) 1.9, Baso % (Auto) 0.4, Absolute Neuts (auto) 5.5, Absolute Lymphs (auto) 1.39, Nucleated RBC % 0, Anisocytosis 3+, Macrocytosis 3+ 05/14/22 05:56: Sodium 141, Potassium 3.6, Chloride 109 H, Carbon Dioxide 22.0, Anion Gap 10, BUN 25 H, Creatinine 2.15 H, Estim Creat Clear Calc 51.03, Est GFR (MDRD) Af Amer 42 L, Est GFR (MDRD) Non-Af 35 L, BUN/Creatinine Ratio 11.6, Glucose 100, Calcium 9.0, Total Bilirubin 5.60 H, AST 44 H, ALT 32, Alkaline Phosphatase 64, Total Protein 7.5, Albumin 3.7, Globulin 3.8, Albumin/Globulin Ratio 1.0 05/14/22 08:47: Crossmatch See Detail Radiology Impression Chest X-Ray 05/13/22 12:40 IMPRESSION: Borderline cardiomegaly. Vascular congestion and mild degree of CHF. Electronically Signed: Ulises Jameson MD at 13:47 EDT , Charges/Coding Visit Charges Inpatient E&M: 08150 Init Hosp L3
[2022-05-14 09:40] LABS: Allen Test Positive; Base Excess -1 mmol/L (-2 to +2); Bicarbonate 21.8 mmol/L (22-26); Blood Gas Specimen Type ART; O2 Delivery Device Cannula; PO2 68 mmHG (75-100); SITE R Radial; SO2 96 % (95-99); Total Carbon Dioxide 23 mmol/L; pCO2 26.5 mmHg (35-45); pH 7.52 (7.35-7.45)
--- NOTE | 2022-05-14 09:43 | PN.RENAL_ITS ---
Subjective Subjective Patient transferred to ICU due to altered mental status Received 80 mg IV Lasix this morning Objective Data Objective Data Vital Signs: Vital Signs Temp Pulse Resp BP Pulse Ox O2 Del Method O2 Flow Rate 98.9 F 109 H 20 H 165/85 H 98 Nasal Cannula 2 05/14/22 08:12 05/14/22 09:40 05/14/22 08:14 05/14/22 08:12 05/14/22 08:12 05/14/22 08:14 05/14/22 08:14 Oxygen Flow Rate (L/min) 2 Oxygen Delivery Method Nasal Cannula Weight: 133.8 kg Body Mass Index (BMI) 35.2 Intake & Output: Intake and Output for Last 24 Hours 05/12/22 05/13/22 05/14/22 23:59 23:59 23:59 Intake Total 1391 / 1391 1031 / 1031 200 / 200 Output Total 1150 / 1150 500 / 500 Balance 1391 / 491 -119 / -119 -300 / -300 Lab / Micro Data Result Diagrams: 05/14/22 05:56 05/14/22 05:56 Labs: Laboratory Results - last 24 hr 05/11/22 05:55: [id number] 171, IVAN-1 Antibody <0.2, SS-A/Ro IgG Antibody < 0.2, SS-B/La IgG Antibody 0.2, Sm (Benjamin) Antibody <0.2, DENTAL LABORATORY TECHNICIAN APPRENTICE Antibody 0.3, Scl-70 Scleroderma Ab <0.2, Double Strand DNA Ab <1, Centromere B Antibody <0.2, Anti-Mitochondrial Ab <20.0 05/13/22 18:49: Ammonia 143.0 H 05/14/22 05:56: WBC 8.2, RBC 2.04 L, Hgb 6.9 L, Hct 22.1 L, MCV 108.3 H, MCH 33.8 H, MCHC 31.2 L, RDW Std Deviation 75.6 H, RDW Coeff of Chris 18.6 H, Plt Count 118 L, MPV 10.5, Immature Gran % (Auto) 0.500, Neut % (Auto) 66.4, Lymph % (Auto) 16.9 L, [place] % (Auto) 13.9 H, Eos % (Auto) 1.9, Baso % (Auto) 0.4, Absolute Neuts (auto) 5.5, Absolute Lymphs (auto) 1.39, Nucleated RBC % 0, Anisocytosis 3+, Macrocytosis 3+ 05/14/22 05:56: Sodium 141, Potassium 3.6, Chloride 109 H, Carbon Dioxide 22.0, Anion Gap 10, BUN 25 H, Creatinine 2.15 H, Estim Creat Clear Calc 51.03, Est GFR (MDRD) Af Amer 42 L, Est GFR (MDRD) Non-Af 35 L, BUN/Creatinine Ratio 11.6, Glucose 100, Calcium 9.0, Total Bilirubin 5.60 H, AST 44 H, ALT 32, Alkaline Phosphatase 64, Total Protein 7.5, Albumin 3.7, Globulin 3.8, Albumin/Globulin Ratio 1.0 05/14/22 08:47: Crossmatch See Detail ABG Data ABG results: ABG 05/14/22 09:36 Specimen Type ART Sample Site R Radial pH 7.52 H Bicarbonate Actual 21.8 L Total CO2 23 Base Excess -1 O2 Saturation 96 ABG pCO2 26.5 L ABG pO2 68 L Bryan Test Positive O2 Delivery Device Cannula Liter Flow 4.0 Attestation: I personally reviewed and interpreted this ABG as follows: Radiography Diagnostic Testing: Radiology Impression Chest X-Ray 05/13/22 12:40 IMPRESSION: Borderline cardiomegaly. Vascular congestion and mild degree of CHF. Electronically Signed: Ulises Jameson MD at 13:47 EDT Reading Location ID and State: [facility] / [place] , Service support , Physical Exam Narrative Patient is lethargic coarse breath sound anteriorly S1-S2 regular Abdomen is obese distended Positive for scrotal edema Anasarca up to abdomen Assessment & Plan Assessment/Plan (1) RON (acute kidney injury): PLAN: Baseline creatinine was normal. History of cirrhosis, recently diagnosed, hepatitis panel negative. Urine sodium is less than 20. Massively volume overloaded. No response to IV fluids in the past. Currently on maximum hepatorenal syndrome treatment including albumin, octreotide, midodrine. Recommend transfer to [facility] or [facility] for transplant evaluation. Patient is agreeable to get transferred. Discussed with hospitalist. He is waiting for a bed. Discussed with family at bedside, all questions answered. 05/14 -Patient is tolerating diuresis, will continue with IV Lasix Of 40 mg IV twice daily -Renal panel in the morning -Encephalopathy being managed by ICU team and GI. Patient is awaiting transfer to [facility] to be evaluated by liver team Discussed with ICU team Thank you please call [phone] with any concerns
--- NOTE | 2022-05-14 12:00 | PCM.PROGNOTE ---
Subjective Subjective I was called see the patient but because he become more encephalopathic. He is not able to respond to questions appropriately. He knows where he is but does not know the year, the president or how long he has been in a hospital. Objective Data Objective Data Vital Signs: Vital Signs Temp Pulse Resp BP Pulse Ox O2 Del Method O2 Flow Rate 100.1 F H 88 37 H 126/73 H 91 Nasal Cannula 4 05/14/22 12:15 05/14/22 15:00 05/14/22 15:00 05/14/22 15:00 05/14/22 15:00 05/14/22 15:00 05/14/22 15:00 Oxygen Flow Rate (L/min) 4 Oxygen Delivery Method Nasal Cannula Weight: 294 lb 15.656 oz Body Mass Index (BMI) 35.2 Intake & Output: Intake and Output for Last 24 Hours 05/12/22 05/13/22 05/14/22 23:59 23:59 23:59 Intake Total 1391 / 1391 1031 / 1031 600 / 600 Output Total 1150 / 1150 1600 / 1600 Balance 1391 / 491 -119 / -119 -1000 / -1000 Lab / Micro Data Result Diagrams: 05/14/22 05:56 05/14/22 05:56 Labs: Laboratory Results - last 24 hr 05/10/22 07:41: Crossmatch See Detail 05/13/22 18:49: Ammonia 143.0 H 05/14/22 05:56: WBC 8.2, RBC 2.04 L, Hgb 6.9 L, Hct 22.1 L, MCV 108.3 H, MCH 33.8 H, MCHC 31.2 L, RDW Std Deviation 75.6 H, RDW Coeff of Chris 18.6 H, Plt Count 118 L, MPV 10.5, Immature Gran % (Auto) 0.500, Neut % (Auto) 66.4, Lymph % (Auto) 16.9 L, [place] % (Auto) 13.9 H, Eos % (Auto) 1.9, Baso % (Auto) 0.4, Absolute Neuts (auto) 5.5, Absolute Lymphs (auto) 1.39, Nucleated RBC % 0, Anisocytosis 3+, Macrocytosis 3+ 05/14/22 05:56: Sodium 141, Potassium 3.6, Chloride 109 H, Carbon Dioxide 22.0, Anion Gap 10, BUN 25 H, Creatinine 2.15 H, Estim Creat Clear Calc 51.03, Est GFR (MDRD) Af Amer 42 L, Est GFR (MDRD) Non-Af 35 L, BUN/Creatinine Ratio 11.6, Glucose 100, Calcium 9.0, Total Bilirubin 5.60 H, AST 44 H, ALT 32, Alkaline Phosphatase 64, Total Protein 7.5, Albumin 3.7, Globulin 3.8, Albumin/Globulin Ratio 1.0 05/14/22 08:47: Blood Type A POSITIVE, Antibody Screen NEGATIVE, Crossmatch See Detail ABG Data ABG results: ABG 05/14/22 09:36 Specimen Type ART Sample Site R Radial pH 7.52 H Bicarbonate Actual 21.8 L Total CO2 23 Base Excess -1 O2 Saturation 96 ABG pCO2 26.5 L ABG pO2 68 L Bryan Test Positive O2 Delivery Device Cannula Liter Flow 4.0 Radiography Diagnostic Testing: Radiology Impression Chest X-Ray 05/14/22 13:40 IMPRESSION: Cardiomegaly and worsening CHF. Electronically Signed: Ulises Jameson MD at 14:01 EDT , Physical Exam Narrative Patient is lethargic coarse breath sound anteriorly S1-S2 regular Abdomen is obese distended Positive for scrotal edema Anasarca up to abdomen Assessment & Plan Assessment/Plan (1) GI bleed: PLAN: His previous bleeding was from his nasal cavity. I cannot tell if it is from his anterior posterior nasal cavity. He only had mild bleeding from portal gastropathy previously. He should be seen by ENT as he continues to bleed from his nasal track will worsening his encephalopathy (2) Cirrhosis: PLAN: Cirrhosis seems to be stable except for encephalopathy, thrombocytopenia, mild increase in bilirubin that I think is mostly secondary to indirect hyperbilirubinemia from acute blood loss anemia. He does not have any ascites that needs a diagnostic or therapeutic paracentesis at this time (3) RON (acute kidney injury): PLAN: Possible hepatorenal syndrome patient is awaiting transfer to tertiary care center. Continue medical therapy. (4) Anasarca: Charges/Coding Visit Charges Inpatient E&M: 51152 Subs Hosp L2
--- NOTE | 2022-05-14 13:40 | RAD_ITS ---
STUDY: X-RAY CHEST REASON FOR EXAM: Male, 51 years old. reps failure TECHNIQUE: Single AP portable view of the chest. COMPARISON: Comparison is made with prior study dated 05/13/2022. FINDINGS: EKG electrodes are seen. Increasing vascular congestion and CHF. Blunting of the right cause phrenic angle. There is moderate cardiac enlargement. Normal mediastinum and kumar. Normal visualized pulmonary arteries. There is atherosclerotic tortuosity of the aortic arch and descending thoracic aorta. There are diffuse degenerative changes of the visualized thoracic spine. Normal visualized ribs, clavicles, and shoulders. There is no demonstrated abnormality of the visualized soft tissue structures of the upper abdomen. RAD/Chest 1 View (Portable) IMPRESSION: Cardiomegaly and worsening CHF. Electronically Signed: Ulises Jameson MD at 14:01 EDT ,
--- NOTE | 2022-05-14 17:32 | OP.EGD_ITS ---
Patient Name: Alok Adams Procedure Date: 05/14/2022 4:55 PM Date of : 1970 Age: 51 Procedure: Upper GI endoscopy Indications: Coffee-ground emesis Providers: Cornelius Samuel DO Medicines: Monitored Anesthesia Care Patient Profile: This is a 51 year old male. Refer to note in patient chart for documentation of history and physical. Patient has symptoms. He is status post EGD for treatment of bleeding within the past month. Complications: No immediate complications. Procedure: Pre-Anesthesia Assessment: - Prior to the procedure, a History and Physical was performed, and patient medications and allergies were reviewed. The patient is competent. The risks and benefits of the procedure and the sedation options and risks were discussed with the patient. All questions were answered and informed consent was obtained. Patient identification and proposed procedure were verified by the physician in the pre-procedure area. Mental Status Examination: alert and oriented. Airway Examination: normal oropharyngeal airway and neck mobility. Respiratory Examination: clear to auscultation. CV Examination: normal. Prophylactic Antibiotics: The patient does not require prophylactic antibiotics. Prior Anticoagulants: The patient has taken no previous anticoagulant or antiplatelet agents. After reviewing the risks and benefits, the patient was deemed in satisfactory condition to undergo the procedure. The anesthesia plan was to use moderate sedation / analgesia (conscious sedation). Immediately prior to administration of medications, the patient was re-assessed for adequacy to receive sedatives. The heart rate, respiratory rate, oxygen saturations, blood pressure, adequacy of pulmonary ventilation, and response to care were monitored throughout the procedure. The physical status of the patient was re-assessed after the procedure. After obtaining informed consent, the endoscope was passed under direct vision. Throughout the procedure, the patient's blood pressure, pulse, and oxygen saturations were monitored continuously. The gastroscope was introduced through the mouth, and advanced to the second part of duodenum. The upper GI endoscopy was accomplished without difficulty. The patient tolerated the procedure well. Scope In: 5:16:15 PM Scope Out: 5:26:05 PM Total Procedure Duration Time 0 hours 9 minutes 50 seconds Findings: Laryngeal edema was visualized, most prominently diffusely, throughout the larynx. The edema is not obstructing the airway. The examined esophagus was normal. Red blood was found in the gastric body. No gross lesions were noted in the stomach. A guide wire was inserted into the stomach and the endoscope was removed. A 16 Fr nasogastric tube was advanced over the guide wire. The endoscope was reinserted along side the feeding tube to the location of the distal end of the tube. The feeding tube was then grasped and guided into the antrum. The distal end of the tube was secured to the bowel wall using a clip. Placement was confirmed by scope visualization. The duodenal bulb was normal. Impression: - Laryngeal edema was found. - Normal esophagus. - Red blood in the gastric body. - No gross lesions in the stomach. - Normal duodenal bulb. - Feeding tube placement was successfully performed. - No specimens collected. Recommendation: - Discharge patient to home. - Resume previous diet. - Continue present medications. Procedure Code(s): --- Professional --- 70393, Esophagogastroduodenoscopy, flexible, transoral; with insertion of intraluminal tube or catheter CPT copyright 2017 [employer]. All rights reserved. The codes documented in this report are preliminary and upon management department chair review may be revised to meet current compliance requirements. Cornelius Samuel DO 05/14/2022 5:32:29 PM This report has been signed electronically. Number of Addenda: 1 Note Initiated On: 05/14/2022 4:55 PM Addendum Number: 1 Addendum Date: 07/24/2022 6:04:48 AM MAC was used as sedation for this procedure. Cornelius Samuel DO 07/24/2022 6:04:52 AM This report has been signed electronically.
--- NOTE | 2022-05-14 17:32 | OP.CCLET_ITS ---
07/24/2022 Jovan Hamilton [address] [place] [address] Re : Upper GI endoscopy procedure for Alok Adams Dear Dr. Hamilton This procedure was performed on Saturday, May 14, 2022. My impressions and recommendations are as follows: Impressions : - Laryngeal edema was found. - Normal esophagus. - Red blood in the gastric body. - No gross lesions in the stomach. - Normal duodenal bulb. - Feeding tube placement was successfully performed. - No specimens collected. Recommendations : - Discharge patient to home. - Resume previous diet. - Continue present medications. My findings are described in the full procedure note, which is enclosed. If I can be of further assistance, please feel free to contact me at . Sincerely, Cornelius Samuel, 05/14/2022 5:32:29 PM This report has been signed electronically.
[2022-05-14] MEDS: Lactulose 20 GM/30 ML UDC 30 GM PO ×8 (18:21→23:34)
--- NOTE | 2022-05-14 20:55 | RAD_ITS ---
STUDY: X-RAY - ABDOMEN/PELVIS REASON FOR EXAM: Male, 51 years old. NG placement. TECHNIQUE: A single AP view of the lower chest and upper abdomen was performed. COMPARISON: Chest, 05/14/2022. FINDINGS: There is endotracheal tube which loops in the proximal stomach and extends distally. There is stable patchy densities in the lung with borderline cardiomegaly. There is an unremarkable bowel gas pattern. No evidence of obstruction or small bowel dilatation. There is no demonstrated free abdominal air. The visualized liver, spleen and kidneys are grossly normal in size and morphology. Normal soft tissue structures. There are diffuse degenerative changes of the visualized lumbar spine. RAD/Abdomen Single View (Portable) IMPRESSION: 1. NG tube as described. 2. No other major interval change when compared to a chest film of 05/14/2022 Electronically Signed: Tigre Vivar DO at 22:00 EDT ,
[2022-05-14] MEDS: Pantoprazole Sodium 40 MG Tablet PO (22:17)
[2022-05-14] MEDS: Ondansetron 4 MG/2 ML Vial IV (23:45)
[2022-05-15] VITALS (24 sets, daily range): BP systolic 126–161; BP diastolic 66–91; PULSE 83–103; RESP 26–38; TEMP 37.5–38.4; O2SAT 93–100
[2022-05-15] MEDS: Lactulose 20 GM/30 ML UDC 30 GM PO ×9 (00:31→07:39)
[2022-05-15] MEDS: Acetaminophen 650 MG/20 ML UDC NG ×2 (02:46→17:48)
[2022-05-15 04:40] LABS: Absolute Lymphocyte Count 1.16 X10^3/uL (0.83-4.51); Absolute Neutrophil Count 10.2 X10^3/uL (2.0-7.7); Basophil# 0.02 X10^3/uL; Basophil% 0.1 % (0-1); Eosinophil# 0.07 X10^3/uL; Eosinophils% 0.5 % (0-5); Hematocrit 24.5 % (40-54); Hemoglobin 7.9 g/dL (13.0-16.5); Lymphocyte # 1.16 X10^3/ul (0.83-4.51); Lymphocyte % 8.5 % (19-41); Mean Corp Hgb Conc 32.2 g/dL (32-36); Mean Corpuscular Hgb 34.6 pg (27.0-32.0); Mean Corpuscular Volume 107.5 fL (80-94); Mean Platelet Vol. 10.2 fl (6.2-12.0); Monocyte# 2.07 X10^3/uL; Monocyte% 15.3 % (0-10); NRBC Flagged by Analyzer 0 % (0-5); Neutrophil # 10.19 X10^3/uL (2.7-7.7); Neutrophil % 75.2 % (47-70); POSITIVE DIFFERENTIAL YES; POSITIVE MORPHOLOGY YES; Platelet Count 118 K/mm3 (150-450); RBC Distribution Width CV 20.2 % (11.6-14.6); RBC Distribution Width SD 79.7 fl (35.1-43.9); Red Blood Count 2.28 M/mm3 (4.6-6.2); White Blood Count 13.6 K/mm3 (4.4-11.0)
[2022-05-15 04:57] LABS: ALB/GLOB Ratio 0.9 RATIO (0.9-2.4); AST(SGOT) 40 U/L (15-37); Alanine Aminotransfer ALT/SGPT 29 U/L (16-61); Albumin, Serum 3.7 g/dL (3.2-5.0); Alkaline Phosphatase 64 U/L (45-117); Anion Gap 9 (5-15); BUN 22 mg/dL (7-18); BUN/Creat Ratio 8.7 RATIO (10-20); Calcium,Total 9.5 mg/dL (8.5-10.1); Chloride 113 mmol/L (98-107); Creatinine, Serum 2.53 mg/dL (0.70-1.30); EST Glomerular Filtration Rate 29 mL/min (>60); Est Glom Filt Rate - Afr Amer 35 mL/min (>60); Estimated Creatinine Clearance 43.36 ml/min; Globulin 3.9 g/dL (2.2-4.2); Glucose 140 mg/dL (74-106); Potassium 3.2 mmol/L (3.5-5.1); Protein, Total 7.6 g/dL (6.4-8.2); Sodium Level 147 mmol/L (136-145)
[2022-05-15 05:08] LABS: Anisocytosis 1+; Differential Comment SCANNED; Differential Indicated SCAN CRITERIA MET; Macrocytosis 1+; Platelet Estimate SLT DEC (ADEQ); Polychromasia RARE
--- NOTE | 2022-05-15 06:03 | PN.CC_ITS ---
Assessment & Plan Assessment/Plan (1) Cirrhosis: PLAN: Plan RECOMMENDATIONS: 1. Continue lactulose per NG tube per GI recommendations. 2. In light of fevers and leukocytosis, obtain blood and urine cultures. Start empiric antimicrobials. 3. Continue octreotide, albumin and midodrine. 4. Continue diuresis as tolerated by hemodynamics and renal function. 5. Wean supplemental oxygen to maintain saturations at or above 90%. 6. Await transfer to tertiary care facility. 7. Potassium repletion as ordered. IMPRESSIONS: 1. Decompensated cirrhosis The patient presented to the hospital with worsening ascites in the setting of a known history of alcohol related cirrhosis. He has been medically managed by gastroenterology. The patient likely has concurrent hepatorenal syndrome, which is being medically managed with octreotide, albumin and midodrine. The patient is awaiting transfer to a tertiary care facility for transplant evaluation. 2. Hypoxemia Secondary to pulmonary vascular congestion in the setting of decompensated cirrhosis related to hypervolemia. Continue medical management as noted above with diuretics and supplemental oxygen to maintain saturations at or above 90%. 3. Hepatic encephalopathy Improving. Plan to continue lactulose per NG tube as ordered. 4. Acute kidney injury Clinical concern for hepatorenal syndrome. Nephrology is currently following to assist with medical management. Continue diuresis as tolerated by hemodynamics and renal function. 5. Anemia/thrombocytopenia Related to his underlying liver disease. Continue to monitor blood counts and transfuse if hemoglobin drops below 7 g/dL. Continue PPI therapy as ordered. 6. Paroxysmal atrial fibrillation Continue to hold home Eliquis for now. This note was generated with [employer] dictation software. It may contain incorrect words, spelling, and punctuation that were not noted in checking the note before signing. Subjective Subjective The patient was seen and examined at the bedside this morning. Events from the last 24 hours have been reviewed. The patient developed a fever overnight with a T-max of 101.2 ?F. He remains otherwise hemodynamically stable on 2 L/min via nasal cannula. The patient underwent repeat upper endoscopy yesterday which revealed blood in the gastric body with no gross lesions in the stomach. A feeding tube was successfully placed. The patient is currently documented to be overall net -2.1 L for the hospitalization. Hemoglobin has improved to 7.9 g/dL this morning. Creatinine has increased to 2.5. Total bilirubin has also increased to 7.8. Ammonia level has improved to 71. The patient has been on scheduled lactulose overnight with subsequent improvement in the patient's mentation. However, he does remain significantly tachypneic. Objective Data Objective Data The patient's most recent lab work, culture data and imaging studies have all been personally reviewed. Vital Signs: Vital Signs Temp Pulse Resp BP Pulse Ox O2 Del Method O2 Flow Rate 100.3 F H 93 37 H 143/88 H 96 Nasal Cannula 2 05/15/22 05:00 05/15/22 05:00 05/15/22 05:00 05/15/22 05:00 05/15/22 05:00 05/15/22 05:00 05/15/22 05:00 Oxygen Flow Rate (L/min) 2 Oxygen Delivery Method Nasal Cannula Weight: 288 lb 12.889 oz Body Mass Index (BMI) 35.2 Intake & Output: Intake and Output for Last 24 Hours 05/13/22 05/14/22 05/15/22 23:59 23:59 23:59 Intake Total 1031 / 1031 1211 / 1391 540 / 540 Output Total 1150 / 1150 3200 / 4600 4450 / 4450 Balance -119 / -119 -1989 / -3209 -3910 / -3910 Lab / Micro Data Attestation: I reviewed the patient's lab results. Result Diagrams: 05/15/22 04:30 05/15/22 04:30 Labs: Laboratory Results - last 24 hr 05/10/22 07:41: Crossmatch See Detail 05/14/22 05:56: WBC 8.2, RBC 2.04 L, Hgb 6.9 L, Hct 22.1 L, MCV 108.3 H, MCH 33.8 H, MCHC 31.2 L, RDW Std Deviation 75.6 H, RDW Coeff of Chris 18.6 H, Plt Count 118 L, MPV 10.5, Immature Gran % (Auto) 0.500, Neut % (Auto) 66.4, Lymph % (Auto) 16.9 L, [place] % (Auto) 13.9 H, Eos % (Auto) 1.9, Baso % (Auto) 0.4, Absolute Neuts (auto) 5.5, Absolute Lymphs (auto) 1.39, Nucleated RBC % 0, Anisocytosis 3+, Macrocytosis 3+ 07/26/22 05:56: Sodium 141, Potassium 3.6, Chloride 109 H, Carbon Dioxide 22.0, Anion Gap 10, BUN 25 H, Creatinine 2.15 H, Estim Creat Clear Calc 51.03, Est GFR (MDRD) Af Amer 42 L, Est GFR (MDRD) Non-Af 35 L, BUN/Creatinine Ratio 11.6, Glucose 100, Calcium 9.0, Total Bilirubin 5.60 H, AST 44 H, ALT 32, Alkaline Phosphatase 64, Total Protein 7.5, Albumin 3.7, Globulin 3.8, Albumin/Globulin Ratio 1.0 05/14/22 08:47: Blood Type A POSITIVE, Antibody Screen NEGATIVE, Crossmatch See Detail 05/15/22 04:30: WBC 13.6 H, RBC 2.28 L, Hgb 7.9 L, Hct 24.5 L, MCV 107.5 H, MCH 34.6 H, MCHC 32.2, RDW Std Deviation 79.7 H, RDW Coeff of Chris 20.2 H, Plt Count 118 L, MPV 10.2, Immature Gran % (Auto) 0.400, Neut % (Auto) 75.2 H, Lymph % (Auto) 8.5 L, [place] % (Auto) 15.3 H, Eos % (Auto) 0.5, Baso % (Auto) 0.1, Absolute Neuts (auto) 10.2 H, Absolute Lymphs (auto) 1.16, Nucleated RBC % 0, Differential Comment SCANNED, Diff Path Review February, Platelet Estimate SLT DEC, Polychromasia RARE, Anisocytosis 1+, Macrocytosis 1+ 05/15/22 04:30: Sodium 147 H, Potassium 3.2 L, Chloride 113 H, Carbon Dioxide 25.0, Anion Gap 9, BUN 22 H, Creatinine 2.53 H, Estim Creat Clear Calc 43.36, Es t GFR (MDRD) Af Amer 35 L, Est GFR (MDRD) Non-Af 29 L, BUN/Creatinine Ratio 8.7 L, Glucose 140 H, Calcium 9.5, Total Bilirubin 7.80 H, AST 40 H, ALT 29, Alkaline Phosphatase 64, Total Protein 7.6, Albumin 3.7, Globulin 3.9, Albumin/Globulin Ratio 0.9 05/15/22 04:30: Ammonia 71.0 H ABG Data ABG results: ABG 05/14/22 09:36 Specimen Type ART Sample Site R Radial pH 7.52 H Bicarbonate Actual 21.8 L Total CO2 23 Base Excess -1 O2 Saturation 96 ABG pCO2 26.5 L ABG pO2 68 L Bryan Test Positive O2 Delivery Device Cannula Liter Flow 4.0 Radiography Diagnostic Testing: Radiology Impression Chest X-Ray 05/14/22 13:40 IMPRESSION: Cardiomegaly and worsening CHF. Electronically Signed: Ulises Jameson MD at 14:01 EDT , KUB X-Ray 05/14/22 20:55 IMPRESSION: 1. NG tube as described. 2. No other major interval change when compared to a chest film of 05/14/2022 Electronically Signed: Tigre Vivar DO at 22:00 EDT , Physical Exam Const alert General Appearance: cooperative and ill appearing Nutritional Appearance: obese HEENT normocephalic and head/scalp atraumatic Eyes PERRL and EOMs intact bilaterally Neck supple General: trachea midline Resp Effort and Inspection: tachypneic Auscultation: rales and diminished lung sounds Cardio regular rate, regular rhythm, S1 normal heart sound and S2 normal heart sound GI soft to palpation and non-tender Inspection: abdominal distention Extremity General Extremity: edema Skin no rashes or lesions noted Neuro CN's II-XII intact bilaterally, moves all extremities and no focal motor deficits Psych Mood & Affect: flat affect Charges/Coding Visit Charges Inpatient E&M: 82435 Subs Hosp L3
[2022-05-15] MEDS: Furosemide 40 MG/4 ML Vial IV ×2 (06:04→14:00)
--- NOTE | 2022-05-15 07:39 | PN.HOSP_ITS ---
Subjective Subjective Follow-up for acute liver failure with encephalopathy, severe anemia, portal hypertension with varices and hepatic renal syndrome. Objective Data Objective Data Vital Signs: Vital Signs Temp Pulse Resp BP Pulse Ox O2 Del Method O2 Flow Rate 100.1 F H 96 35 H 143/81 H 95 Nasal Cannula 2 05/15/22 07:00 05/15/22 07:00 05/15/22 07:00 05/15/22 07:00 05/15/22 07:00 05/15/22 07:00 05/15/22 07:00 Oxygen Flow Rate (L/min) 2 Oxygen Delivery Method Nasal Cannula Weight: 288 lb 12.889 oz Body Mass Index (BMI) 35.2 Intake & Output: Intake and Output for Last 24 Hours 05/13/22 05/14/22 05/15/22 23:59 23:59 23:59 Intake Total 1031 / 1031 1211 / 1391 630 / 630 Output Total 1150 / 1150 3200 / 4600 6750 / 6750 Balance -119 / -119 -1989 / -3209 -6120 / -6120 Lab / Micro Data Result Diagrams: 05/15/22 04:30 05/15/22 04:30 Labs: Laboratory Results - last 24 hr 05/10/22 07:41: Crossmatch See Detail 05/14/22 08:47: Blood Type A POSITIVE, Antibody Screen NEGATIVE, Crossmatch See Detail 05/15/22 04:30: WBC 13.6 H, RBC 2.28 L, Hgb 7.9 L, Hct 24.5 L, MCV 107.5 H, MCH 34.6 H, MCHC 32.2, RDW Std Deviation 79.7 H, RDW Coeff of Chris 20.2 H, Plt Count 118 L, MPV 10.2, Immature Gran % (Auto) 0.400, Neut % (Auto) 75.2 H, Lymph % (Auto) 8.5 L, [place] % (Auto) 15.3 H, Eos % (Auto) 0.5, Baso % (Auto) 0.1, Absolute Neuts (auto) 10.2 H, Absolute Lymphs (auto) 1.16, Nucleated RBC % 0, Differential Comment SCANNED, Diff Path Review May , Platelet Estimate SLT DEC, Polychromasia RARE, Anisocytosis 1+, Macrocytosis 1+ 05/15/22 04:30: Sodium 147 H, Potassium 3.2 L, Chloride 113 H, Carbon Dioxide 25.0, Anion Gap 9, BUN 22 H, Creatinine 2.53 H, Estim Creat Clear Calc 43.36, Est GFR (MDRD) Af Amer 35 L, Est GFR (MDRD) Non-Af 29 L, BUN/Creatinine Ratio 8.7 L, Glucose 140 H, Calcium 9.5, Total Bilirubin 7.80 H, AST 40 H, ALT 29, Alkaline Phosphatase 64, Total Protein 7.6, Albumin 3.7, Globulin 3.9, Albumin/Globulin Ratio 0.9 05/15/22 04:30: Ammonia 71.0 H ABG Data ABG results: ABG 05/14/22 09:36 Specimen Type ART Sample Site R Radial pH 7.52 H Bicarbonate Actual 21.8 L Total CO2 23 Base Excess -1 O2 Saturation 96 ABG pCO2 26.5 L ABG pO2 68 L Bryan Test Positive O2 Delivery Device Cannula Liter Flow 4.0 Radiography Diagnostic Testing: Radiology Impression Chest X-Ray 05/14/22 13:40 IMPRESSION: Cardiomegaly and worsening CHF. Electronically Signed: Ulises Jameson MD at 14:01 EDT , KUB X-Ray 05/14/22 20:55 IMPRESSION: 1. NG tube as described. 2. No other major interval change when compared to a chest film of 05/14/2022 Electronically Signed: Tigre Vivar DO at 22:00 EDT , Physical Exam Narrative Physical exam General: Confused, disoriented, sluggish, fluctuating level of consciousness HEENT: Pale looking, icterus present. Atraumatic, PERRLA, EOMI, Normocephalic Oral: Oral mucosa dry. No Gingival or Mucosal Lesions/ Ulcerations Neck: Supple, No JVD, Negative Carotid Bruits Lungs: Air entry diminished in bilateral lung bases. Tachypneic respiratory rate 30 to 35/min. On 2 L of oxygen. Mild bibasilar crepitations Cardiovascular: Regular rate, Regular Rhythm, Normal S1, Normal S2, No murmurs Abdomen: Abdominal distention, ascites. Bowel Sounds Present, Soft, Non Tender. Fecal management system. Liquid stool : Degroot catheter, inserted 05/14. Yellow-colored urine. No renal angle tenderness. No suprapubic tenderness. Extremities: Bilateral pitting lower extremity diffuse edema, Capillary Refill Less than 3 Seconds Skin: No rashes, No breakdown Musculoskeletal: No Tenderness to Palpation of Joints or Extremities Neurological: Cranial nerves II-XII grossly intact, DTR 2+/4 Psych/Mental Status: Flat affect. Assessment & Plan Assessment/Plan (1) Hypokalemia: (2) Anasarca: (3) Ascites due to chronic alcoholic hepatitis: (4) RON (acute kidney injury): PLAN: Plan Patient is a 51-year-old gentleman admitted with anasarca with bilateral lower extremity swelling, ascites and scrotal swelling. About a month ago he was admitted for nausea vomiting diarrhea diagnosed C. difficile colitis. At that time he also had GI bleed with severe anemia and found AVMs/portal hypertensive gastropathy on EGD. Consultation was placed to GI patient underwent EGD and colonoscopy found to have multiple angiodysplastic lesions in the colon and the stomach treated with APC. Patient was found to have worsening kidney function. Patient had worsening of mental status/encephalopathy and transferred to ICU. 1. Acute liver failure/pulmonary hepatic failure: CT abdomen with IV contrast was reviewed from 04/02/2022. Reported diffuse homogeneous hepatocellular disease without mass or bile duct dilatation but it shows features of portal hypertension including PAG, splenomegaly, decannulation of umbilical vein. Patient has worsening in total bilirubin, INR with duration less than 26-weeks therefore meets criteria for acute liver failure with no prior diagnosis of cirrhosis or chronic underlying liver disease Acute hypoxic respiratory failure probably due to the pulmonary edema from anasarca: Patient was transferred to the intensive care unit please on noninvasive ventilation started on Lasix and Aldactone. Consultation placed to pulmonary medicine Case discussed with Dr. Gu prior to patient being transferred to the ICU 2. Anemia ? Secondary to acute blood loss anemia superimposed on anemia of chronic disorder; from angiodysplastic lesions in both the stomach and colon.Consultation was placed to GI patient underwent EGD and colonoscopy found to have multiple angiodysplastic lesions in the colon and the stomach treated with APC. -05/14/2022 with patient hemoglobin dropping to 6.9 and order was given for patient to be transfused 1 unit PRBC. Patient was on Eliquis discontinued. Patient was taken to ED 05/15: Patient had episodes of hematochezia and was taken to endoscopy suite for EGD twice and once colonoscopy during this hospital course. EGD on May 14 was red blood on the gastric body. EGD on May 11 shows portal hypertensive gastropathy, 2 bleeding angiodysplastic lesion status post APC and red blood in esophagus. Colonoscopy reported diverticulosis in the rectosigmoid and descending colon and one 5 mm polyp in transverse colon status post hot snare. 3 bleeding colonic angiodysplastic lesions treated with APC Prior to that he had EGD in March 2022 during previous admission and found 3 bleeding angiodysplastic lesion in the stomach treated with APC. 1 nonbleeding duodenal ulcer. 3. Acute toxic metabolic encephalopathy fluctuating: Patient had worsening of hepatic encephalopathy, increasing bilirubin and creatinine therefore transferred to ICU. Patient was treated with lactulose currently mental status improved and grade 1/2 encephalopathy. Ammonia level obtained the day prior was 143 patient is on Aldactone 4. Acute decompensation of liver disease: Patient on Protonix, octreotide and midodrine. Patient also had IV albumin infusion. Patient used to drink heavily a case of beer for 10 to 10 years about 20 years ago. After that he drinks 1-2 beers weekly. 5.. Acute kidney injury ? Secondary to hepatorenal syndrome. On albumin octreotide midodrine treatment. Discussed with the director global market research. 6. Thrombocytopenia ? Secondary to chronic liver disease 7. Essential hypertension ? Patient is on losartan and HCTZ held in view of worsening kidney function did continue with metoprolol in addition to hydralazine as needed 8. Paroxysmal A. fib ? Rate controlled on systemic anticoagulation with Eliquis -05/14/2022's Eliquis discontinued in view of worsening anemia 9. GERD ? On PPI 10. Class II obesity with BMI of 35.7 ? Weight loss advised 11. DVT prophylaxis ? Was on Eliquis discontinued bilateral SCDs for now Total time of the visit including total time spent in counseling or coordination of care, (more than 50% of the total time, spent in obtaining medical information from nurses and other ancillary care providers,explaining to the patient about labs, imaging, diagnosis and management), discussion in the conference call with [facility] Jessica Tejeda, meter and regulator shop supervisor and transfer pumper, review of labs and imaging is 50 minutes. Charges/Coding Multi Select Codes Visit Charges Visit Charges: 90100 Subs Hosp L3
[2022-05-15] MEDS: Potassium Chloride 10mEq/100mL 10 MEQ/100 ML IV.SOLN. 100 MEQ IV BOLUS ×5 (08:29→22:42)
[2022-05-15 08:47] LABS: Bacteria 0 SEEN /hpf (None Seen); Mucous, Urine 0 SEEN /hpf (<or=2+); Squamous Epithelial Cells - UA 0 SEEN /hpf (0-5); White Blood Cells 0 SEEN /hpf (0-5)
[2022-05-15 08:56] LABS: Color, Urine Yellow (Yellow); Glucose, Dipstick Normal (Normal); Ketone-Dipstick Negative (Negative); Leukocyte Esterase-Dipstick Negative /ul (Negative); Nitrite-Dipstick Negative (Negative); Occult Blood-Urine 150 /ul (Negative); Protein-Dipstick Negative (Negative); Urine Bilirubin Dipstick Negative (Negative); Urine Clarity Sl. Cloudy (Clear); Urine Urobilinogen Normal (Normal)
[2022-05-15 09:07] LABS: Red Blood Cells-Urine 10-25 SEEN /hpf (0-5)
--- NOTE | 2022-05-15 09:25 | CASEMGMT ---
Tertiary facilities in-network with patient's insurance: [facility], [facility], , [facility], [facility], and [facility]
[2022-05-15 10:07] LABS: International Normalized Ratio 2.7; Prothrombin Time (Protime)PT. 28.5 SECONDS (11.7-14.9)
[2022-05-15 10:57] LABS: Pathologist Review Reviewed
[2022-05-15] MEDS: Midodrine HCl 5 MG Tablet 10 MG PO ×2 (14:02→17:47)
--- NOTE | 2022-05-15 14:31 | PCM.PN.REN ---
Subjective Subjective f/u ron -more awake, but still confused -non oliguric -still awaiting bed at [facility] Objective Data Objective Data Vital Signs: Vital Signs Temp Pulse Resp BP Pulse Ox O2 Del Method O2 Flow Rate 100.2 F H 93 29 H 136/86 H 93 Nasal Cannula 2 05/15/22 12:00 05/15/22 12:00 05/15/22 12:00 05/15/22 12:00 05/15/22 12:00 05/15/22 12:00 05/15/22 12:00 Oxygen Flow Rate (L/min) 2 Oxygen Delivery Method Nasal Cannula Weight: 131 kg Body Mass Index (BMI) 35.2 Intake & Output: Intake and Output for Last 24 Hours 05/13/22 05/14/22 05/15/22 23:59 23:59 23:59 Intake Total 1031 / 1031 1211 / 1391 1253.33 / 1253.33 Output Total 1150 / 1150 3200 / 4600 8850 / 8850 Balance -119 / -119 -1989 / -3209 -7596.67 / -7596.67 Lab / Micro Data Attestation: I reviewed the patient's lab results. Result Diagrams: 05/15/22 04:30 05/15/22 04:30 Labs: Laboratory Results - last 24 hr 05/14/22 08:47: Crossmatch See Detail 05/15/22 04:30: WBC 13.6 H, RBC 2.28 L, Hgb 7.9 L, Hct 24.5 L, MCV 107.5 H, MCH 34.6 H, MCHC 32.2, RDW Std Deviation 79.7 H, RDW Coeff of Chris 20.2 H, Plt Count 118 L, MPV 10.2, Immature Gran % (Auto) 0.400, Neut % (Auto) 75.2 H, Lymph % (Auto) 8.5 L, [place] % (Auto) 15.3 H, Eos % (Auto) 0.5, Baso % (Auto) 0.1, Absolute Neuts (auto) 10.2 H, Absolute Lymphs (auto) 1.16, Nucleated RBC % 0, Differential Comment SCANNED, Diff Path Review Reviewed, Platelet Estimate SLT DEC, Polychromasia RARE, Anisocytosis 1+, Macrocytosis 1+ 05/15/22 04:30: Sodium 147 H, Potassium 3.2 L, Chloride 113 H, Carbon Dioxide 25.0, Anion Gap 9, BUN 22 H, Creatinine 2.53 H, Estim Creat Clear Calc 43.36, Est GFR (MDRD) Af Amer 35 L, Est GFR (MDRD) Non-Af 29 L, BUN/Creatinine Ratio 8.7 L, Glucose 140 H, Calcium 9.5, Total Bilirubin 7.80 H, AST 40 H, ALT 29, Alkaline Phosphatase 64, Total Protein 7.6, Albumin 3.7, Globulin 3.9, Albumin/Globulin Ratio 0.9 05/15/22 04:30: Ammonia 71.0 H 05/15/22 08:15: PT 28.5 H, INR 2.7, APTT 41.0 H 05/15/22 08:15: PT Cancelled, INR Cancelled 05/15/22 08:20: Urine Color Yellow, Urine Clarity Sl. Cloudy, Urine pH 6.0, Ur Specific [place] 1.010, Urine Protein Negative, Urine Glucose (UA) Normal, Urine Ketones Negative, Urine Occult Blood 150 H, Urine Nitrite Negative, Urine Bilirubin Negative, Urine Urobilinogen Normal, Ur Leukocyte Esterase Negative, Urine RBC 10-25 SEEN, Urine WBC 0 SEEN, Ur Squamous Epith Cells 0 SEEN, Urine Bacteria 0 SEEN, Urine Mucus 0 SEEN Radiography Diagnostic Testing: Radiology Impression KUB X-Ray 05/14/22 20:55 IMPRESSION: 1. NG tube as described. 2. No other major interval change when compared to a chest film of 05/14/2022 Electronically Signed: Tigre Vivar DO at 22:00 EDT Reading Location ID and State: [address] [place] [address] Tel [phone], Service support , Physical Exam Narrative more alert, but still confused s1s2 regular b/s coarse abdomen obese, distended +LE edema edwards present, yellow urine Assessment & Plan Assessment/Plan (1) RON (acute kidney injury): PLAN: Baseline creatinine was normal. History of cirrhosis, recently diagnosed, hepatitis panel negative. Urine sodium is less than 20. Massively volume overloaded. No response to IV fluids in the past. Currently on maximum hepatorenal syndrome treatment including albumin, octreotide, midodrine. Recommend transfer to [facility] or [facility] for transplant evaluation. Patient is agreeable to get transferred. Discussed with hospitalist. He is waiting for a bed. Discussed with family at bedside, all questions answered. 05/15 -some flucutation in renal function -making urine -TB rising -ongoing supportive care per ICU team -awaiting transfer to [facility] Discussed with ICU team Thank you please call [phone] with any concerns
[2022-05-15 14:40] LABS: M R Staph aureus DNA By PCR Negative (Negative); Probe Check PASS; Specimen Processing Control PASS
--- NOTE | 2022-05-15 15:29 | PCM.PROGNOTE ---
Subjective Subjective Patient is more awake this morning. We will replace the NG tube endoscopically yesterday. However patient removed it by mistake. He was placed back in his stomach at the bedside last night. He has been on lactulose therapy all night and today. He is a little bit more alert today but still very encephalopathic. Objective Data Objective Data Vital Signs: Vital Signs Temp Pulse Resp BP Pulse Ox O2 Del Method O2 Flow Rate 99.7 F H 89 31 H 133/77 H 99 Nasal Cannula 2 05/15/22 15:00 05/15/22 15:00 05/15/22 15:00 05/15/22 15:00 05/15/22 15:00 05/15/22 15:00 05/15/22 15:00 Oxygen Flow Rate (L/min) 2 Oxygen Delivery Method Nasal Cannula Weight: 288 lb 12.889 oz Body Mass Index (BMI) 35.2 Intake & Output: Intake and Output for Last 24 Hours 05/13/22 05/14/22 05/15/22 23:59 23:59 23:59 Intake Total 1031 / 1031 1211 / 1391 1253.33 / 1253.33 Output Total 1150 / 1150 3200 / 4600 8850 / 8850 Balance -119 / -119 -1989 / -3209 -7596.67 / -7596.67 Lab / Micro Data Result Diagrams: 05/15/22 04:30 05/15/22 04:30 Labs: Laboratory Results - last 24 hr 05/15/22 04:30: WBC 13.6 H, RBC 2.28 L, Hgb 7.9 L, Hct 24.5 L, MCV 107.5 H, MCH 34.6 H, MCHC 32.2, RDW Std Deviation 79.7 H, RDW Coeff of Chris 20.2 H, Plt Count 118 L, MPV 10.2, Immature Gran % (Auto) 0.400, Neut % (Auto) 75.2 H, Lymph % (Auto) 8.5 L, [place] % (Auto) 15.3 H, Eos % (Auto) 0.5, Baso % (Auto) 0.1, Absolute Neuts (auto) 10.2 H, Absolute Lymphs (auto) 1.16, Nucleated RBC % 0, Differential Comment SCANNED, Diff Path Review Reviewed, Platelet Estimate SLT DEC, Polychromasia RARE, Anisocytosis 1+, Macrocytosis 1+ 05/15/22 04:30: Sodium 147 H, Potassium 3.2 L, Chloride 113 H, Carbon Dioxide 25.0, Anion Gap 9, BUN 22 H, Creatinine 2.53 H, Estim Creat Clear Calc 43.36, Est GFR (MDRD) Af Amer 35 L, Est GFR (MDRD) Non-Af 29 L, BUN/Creatinine Ratio 8.7 L, Glucose 140 H, Calcium 9.5, Total Bilirubin 7.80 H, AST 40 H, ALT 29, Alkaline Phosphatase 64, Total Protein 7.6, Albumin 3.7, Globulin 3.9, Albumin/Globulin Ratio 0.9 05/15/22 04:30: Ammonia 71.0 H 05/15/22 08:15: PT 28.5 H, INR 2.7, APTT 41.0 H 05/15/22 08:15: PT Cancelled, INR Cancelled 05/15/22 08:20: MRSA (PCR) Negative 05/15/22 08:20: Urine Color Yellow, Urine Clarity Sl. Cloudy, Urine pH 6.0, Ur Specific [place] 1.010, Urine Protein Negative, Urine Glucose (UA) Normal, Urine Ketones Negative, Urine Occult Blood 150 H, Urine Nitrite Negative, Urine Bilirubin Negative, Urine Urobilinogen Normal, Ur Leukocyte Esterase Negative, Urine RBC 10-25 SEEN, Urine WBC 0 SEEN, Ur Squamous Epith Cells 0 SEEN, Urine Bacteria 0 SEEN, Urine Mucus 0 SEEN Radiography Diagnostic Testing: Radiology Impression KUB X-Ray 05/14/22 20:55 IMPRESSION: 1. NG tube as described. 2. No other major interval change when compared to a chest film of 05/14/2022 Electronically Signed: Tigre Vivar DO at 22:00 EDT Reading Location ID and State: [address] [place] [address] Tel [phone], Service support , Physical Exam Narrative more alert, but still confused s1s2 regular b/s coarse abdomen obese, distended +LE edema edwards present, yellow urine Assessment & Plan Assessment/Plan (1) GI bleed: PLAN: During his endoscopy yesterday there was no signs of GI bleed in the GI tract. I believe his bleeding all along has been primarily from his nose either anterior or posterior nasal bleed. He has a NG tube in his right nostril at this time that is giving him lactulose up to 2 hours. We will recheck his H&H. (2) Cirrhosis: PLAN: His liver disease is worsening as his bilirubin is increasing as is his INR in him having a decrease in albumin carries a very poor prognosis. He has a acute fulminant hepatic failure with pending hepatic necrosis. He needs emergent transfer to tertiary care center for evaluation of a orthotopic a living donor transplant. I will give him vitamin K in the interim. This has been discussed with his son who is at the bedside and the patient. (3) Anasarca: PLAN: Patient has diffuse anasarca secondary to fulminant liver failure in the setting of severe hypoalbuminemia and acute kidney injury. (4) RON (acute kidney injury): PLAN: He is on maximal therapy for hepatorenal syndrome type II which would be midodrine, albumin and octreotide therapy we will continue that until hopefully he gets transferred to a tertiary care center. Charges/Coding Visit Charges Inpatient E&M: 39985 Subs Hosp L3
--- NOTE | 2022-05-15 15:39 | CASEMGMT ---
MIKEL WADE received call from Racquel WADE at [facility], [phone]. Racquel provided [employer] information for discharge planning assistance P: [phone] F: [phone]. Racquel is available to assists with discharge planning.
--- NOTE | 2022-05-15 18:19 | CT_ITS ---
EXAM: CT ABDOMEN AND PELVIS WITHOUT INTRAVENOUS CONTRAST CLINICAL INDICATION: FEVER to r/o hepatobiliary sepsis TECHNIQUE: Helically acquired images were obtained of the abdomen and pelvis without intravenous contrast. This CT exam was performed using one or more of the following dose reduction techniques: automated exposure control, adjustment of the mA and/or kV according to patient size, and/or use of iterative reconstruction technique. This report was created using [employer] report generation technology. COMPARISON: 04/02/2022 FINDINGS: LOWER THORAX: Calcification of the pericardium along the right atrium which may be from previous pericarditis. There are moderate bilateral pleural effusions with bilateral lower lobe consolidation compatible with pneumonia. ABDOMEN: LIVER: Unremarkable. Homogeneous. GALLBLADDER AND BILE DUCTS: The gallbladder is mildly distended. There are several tiny gallstones but no obvious inflammation. No intra- or extrahepatic biliary ductal dilation. PANCREAS: Unremarkable. No focal cystic mass. SPLEEN: Unremarkable. Normal size without focal cystic or solid mass. ADRENALS: Unremarkable. No nodules. KIDNEYS AND URETERS: Unremarkable. Normal renal size and position. No hydronephrosis. STOMACH AND BOWEL: There are gas and fluid-filled loops of small bowel which may represent enteritis or an ileus. No stomach or bowel distention. PELVIS: APPENDIX: No evidence of acute appendicitis. BLADDER: A Degroot catheter in the bladder. REPRODUCTIVE: Unremarkable as visualized. No mass. ABDOMEN and PELVIS: INTRAPERITONEAL SPACE: Unremarkable. No ascites or other fluid collection. No free air. BONES/JOINTS: Unremarkable. No suspicious lytic or blastic abnormality. SOFT TISSUES: There is edema in the subcutaneous tissues which may represent anasarca. No discrete abdominal or pelvic wall hernia. VASCULATURE: Unremarkable. Abdominal aorta is non-dilated. LYMPH NODES: Unremarkable. No enlarged lymph nodes. TUBES, LINES AND DEVICES: Nasogastric tube is in place with distal tip in the distal stomach. There is a rectal tube in place. CT/Abdomen/Pelvis without Cont IMPRESSION: 1. Bilateral pleural effusions with bilateral lower lobe consolidation compatible with pneumonia. 2. Dilated gas and fluid-filled loops of small bowel which may represent enteritis or ileus. 3. Calcification of the pericardium along the right atrium which may be from previous pericarditis. 4. Tiny gallstones or sludge. There is no obvious inflammation identified. Electronically Signed: Yamil Holloway MD at 20:11 EDT ,
[2022-05-15 19:06] LABS: Cytoplasmic Ab (C-ANCA) <1:20 titer (Neg:<1:20); Immunoglobulin E 2168 IU/mL (6-495); Immunoglobulin G 2009 mg/dL (603-1613); Immunoglobulin M 260 mg/dL (20-172)
[2022-05-15 20:00] LABS: Anti-Smooth Muscle ABS 33 Units (0-19); Copper, Serum or Plasma 87 ug/dL (69-132); Immunoglobulin A 896 mg/dL (90-386); Perinuclear Ab (P-ANCA) <1:20 titer (Neg:<1:20)
[2022-05-15] MEDS: 0.45% Normal Saline 1,000 ML 50 ML IV (22:37)
[2022-05-16] VITALS: BP 169/81; PULSE 82; PULSE 86; RESP 23; TEMP 37.9; O2SAT 98
--- NOTE | 2022-05-16 00:12 | PCA ---
Called physician ambulance, ETA 90 minutes to 2 hours. IMKEL Munguia and MIKEL Willis aware.
[2022-05-16 01:00] VITALS: BP 142/77; PULSE 79; RESP 22; TEMP 37.9; O2SAT 100
--- NOTE | 2022-05-16 07:33 | DS.PCM_ITS ---
Providers Date of Admission: 05/09/22 Date of Discharge: 05/16/22 Primary Care Physician: Dr. Jovan Hamilton MD Consultations 05/09/22 14:54 Consult: Gastroenterology Routine Consulting Provider: [facility] Reason for Consult: Liver Disease/Anasarca EMERGENT Consult: No Notified: Yes Date Notified: 05/09/22 Time Notified: 13:47 Method of Notification: Verbal 05/11/22 07:12 Consult: Nephrology Routine Consulting Provider: Lilli Munoz Reason for Consult: RON on CKD EMERGENT Consult: No Notified: Yes Date Notified: 05/11/22 Time Notified: 13:00 Method of Notification: DOCs spoke to ea. other 05/14/22 09:01 Consult: Family Resource Coordinator / Pulmonary Medicine Routine Consulting Provider: Pulmonary Medicine john Kittredge Reason for Consult: respiratory failure EMERGENT Consult: No Notified: Yes Date Notified: 05/14/22 Time Notified: 09:38 Method of Notification: Verbal Reason For Visit: LIVER DISEASE/ANASARCA Diagnosis Discharge Diagnosis (1) GI bleed: Status: Acute Code(s): K92.2 - Gastrointestinal hemorrhage, unspecified (2) Cirrhosis: Status: Acute Code(s): K74.60 - Unspecified cirrhosis of liver (3) Anasarca: Status: Acute Code(s): R60.1 - Generalized edema (4) RON (acute kidney injury): Status: Acute Code(s): N17.9 - Acute kidney failure, unspecified Plan Patient is a 51-year-old gentleman admitted with anasarca with bilateral lower extremity swelling, ascites and scrotal swelling. About a month ago he was admitted for nausea vomiting diarrhea diagnosed C. difficile colitis. At that time he also had GI bleed with severe anemia and found AVMs/portal hypertensive gastropathy on EGD. Consultation was placed to GI patient underwent EGD and colonoscopy found to have multiple angiodysplastic lesions in the colon and the stomach treated with APC. Patient was found to have worsening kidney function. Patient had worsening of mental status/encephalopathy and transferred to ICU. 1. Acute liver failure/pulmonary hepatic failure: CT abdomen with IV contrast was reviewed from 04/02/2022. Reported diffuse homogeneous hepatocellular disease without mass or bile duct dilatation but it shows features of portal hypertension including PAG, splenomegaly, decannulation of umbilical vein. Patient has worsening in total bilirubin, INR with duration less than 26-weeks therefore meets criteria for acute liver failure with no prior diagnosis of cirrhosis or chronic underlying liver disease Acute hypoxic respiratory failure probably due to the pulmonary edema from anasarca: Patient was transferred to the intensive care unit please on noninvasive ventilation started on Lasix and Aldactone. Consultation placed to pulmonary medicine Case discussed with Dr. Gu prior to patient being transferred to the ICU 2. Anemia ? Secondary to acute blood loss anemia superimposed on anemia of chronic disorder; from angiodysplastic lesions in both the stomach and colon.Consultation was placed to GI patient underwent EGD and colonoscopy found to have multiple angiodysplastic lesions in the colon and the stomach treated with APC. -05/14/2022 with patient hemoglobin dropping to 6.9 and order was given for patient to be transfused 1 unit PRBC. Patient was on Eliquis discontinued. Patient was taken to ED 05/15: Patient had episodes of hematochezia and was taken to endoscopy suite for EGD twice and once colonoscopy during this hospital course. EGD on May 14 was red blood on the gastric body. EGD on May 11 shows portal hypertensive gastropathy, 2 bleeding angiodysplastic lesion status post APC and red blood in esophagus. Colonoscopy reported diverticulosis in the rectosigmoid and descending colon and one 5 mm polyp in transverse colon status post hot snare. 3 bleeding colonic angiodysplastic lesions treated with APC Prior to that he had EGD in March 2022 during previous admission and found 3 bleeding angiodysplastic lesion in the stomach treated with APC. 1 nonbleeding duodenal ulcer. 3. Acute toxic metabolic encephalopathy fluctuating: Patient had worsening of hepatic encephalopathy, increasing bilirubin and creatinine therefore transferred to ICU. Patient was treated with lactulose currently mental status improved and grade 1/2 encephalopathy. Ammonia level obtained the day prior was 143 patient is on Aldactone 4. Acute decompensation of liver disease: Patient on Protonix, octreotide and midodrine. Patient also had IV albumin infusion. Patient used to drink heavily a case of beer for 10 to 10 years about 20 years ago. After that he drinks 1-2 beers weekly. 5.. Acute kidney injury ? Secondary to hepatorenal syndrome. On albumin octreotide midodrine treatment. Discussed with the balloon tester. 6. Thrombocytopenia ? Secondary to chronic liver disease 7. Essential hypertension ? Patient is on losartan and HCTZ held in view of worsening kidney function did continue with metoprolol in addition to hydralazine as needed 8. Paroxysmal A. fib ? Rate controlled on systemic anticoagulation with Eliquis -05/14/2022's Eliquis discontinued in view of worsening anemia 9. GERD ? On PPI 10. Class II obesity with BMI of 35.7 ? Weight loss advised 11. DVT prophylaxis ? Was on Eliquis discontinued bilateral SCDs for now Total time of the visit including total time spent in counseling or coordination of care, (more than 50% of the total time, spent in obtaining medical informat ion from nurses and other ancillary care providers,explaining to the patient about labs, imaging, diagnosis and management), discussion in the conference call with [facility] Jessica Tejeda, retail administrative assistant and transfer engineer, review of labs and imaging is 50 minutes. Medications at Discharge Home Medications apixaban 5 mg tablet (Eliquis) 5 mg PO BID 04/02/22 furosemide 40 mg tablet 40 mg PO DAILY 04/02/22 losartan 100 mg-hydrochlorothiazide 12.5 mg tablet 1 tab PO DAILY 04/02/22 metoprolol succinate 100 mg tablet,extended release 24 hr 100 mg PO DAILY 04/02/22 potassium chloride 10 mEq tablet,extended release(part/cryst) 20 meq PO DAILY supplement 04/02/22 pantoprazole 40 mg tablet,delayed release 40 mg PO BID 30 days #60 tabs 04/05/22 albuterol sulfate 90 mcg/actuation aerosol inhaler 2 inh inhalation Q4H PRN PRN breathing 05/09/22 Hospital Course Summary of Care Provided Hospital Course: Patient is a 51-year-old gentleman admitted with anasarca with bilateral lower extremity swelling, ascites and scrotal swelling.? About a month ago he was admitted for nausea vomiting diarrhea diagnosed C. difficile colitis.? At that time he also had GI bleed with severe anemia and found AVMs/portal hypertensive gastropathy on EGD. ?Consultation was placed to GI patient underwent EGD and colonoscopy found to have multiple angiodysplastic lesions in the colon and the stomach treated with APC.? Patient was found to have worsening kidney function.? Patient had worsening of mental status/encephalopathy and transferred to ICU. 1.? Acute liver failure/pulmonary hepatic failure: CT abdomen with IV contrast was reviewed from 04/02/2022.? Reported diffuse homogeneous hepatocellular disease without mass or bile duct dilatation but it shows features of portal hypertension including PAG, splenomegaly, decannulation of umbilical vein.? Patient has worsening in total bilirubin, INR with duration less than 26-weeks therefore meets criteria for acute liver failure with no prior diagnosis of cirrhosis or chronic underlying liver disease I personally talked to the conference call, team of transplant retail administrative assistant, zipper repairer and long term care social worker. Patient was accepted after making an assessment of acute liver failure with history of possible chronic alcoholic liver disease. Patient was transferred to [facility] about 2 AM. ?Acute hypoxic respiratory failure probably due to the pulmonary edema from anasarca: ? Patient was transferred to the intensive care unit please on noninvasive ventilation started on Lasix and Aldactone.? Consultation placed to pulmonary medicine Case discussed with Dr. Gu prior to patient being transferred to the ICU 2.? Anemia Secondary to acute blood loss anemia superimposed on anemia of chronic disorder; from angiodysplastic lesions in both the stomach and colon.Consultation was placed to GI patient underwent EGD and colonoscopy found to have multiple angiodysplastic lesions in the colon and the stomach treated with APC. -05/14/2022 with patient hemoglobin dropping to 6.9 and order was given for patient to be transfused 1 unit PRBC.? Patient was on Eliquis discontinued.? Patient was taken to ED 05/15: Patient had episodes of hematochezia and was taken to endoscopy suite for EGD twice and once colonoscopy during this hospital course.? EGD on May 14 was red blood on the gastric body.? EGD on May 11 shows portal hypertensive gastropathy, 2 bleeding angiodysplastic lesion status post APC and red blood in esophagus. Colonoscopy reported diverticulosis in the rectosigmoid and descending colon and one 5 mm polyp in transverse colon status post hot snare.? 3 bleeding colonic angiodysplastic lesions treated with APC ?Prior to that he had EGD in March 2022 during previous admission and found 3 bleeding angiodysplastic lesion in the stomach treated with APC.? 1 nonbleeding duodenal ulcer. 3.? Acute toxic metabolic encephalopathy fluctuating: Patient had worsening of hepatic encephalopathy, increasing bilirubin and creatinine therefore transferred to ICU.? Patient was treated with lactulose currently mental status improved and grade 1/2 encephalopathy. ? Ammonia level obtained the day prior was 143 patient is on Aldactone 4.? Acute decompensation of liver disease: Patient on Protonix, octreotide and midodrine.? Patient also had IV albumin infusion.? Patient used to drink heavily a case of beer for 10 to 10 years about 20 years ago.? After that he drinks 1-2 beers weekly. ? 5..? Acute kidney injury ? Secondary to hepatorenal syndrome.? On albumin octreotide midodrine treatment.? Discussed with the balloon tester. 6.? Thrombocytopenia ? Secondary to chronic liver disease 7.? Essential hypertension ? Patient is on losartan and HCTZ held in view of worsening kidney function did continue with metoprolol in addition to hydralazine as needed 8.? Paroxysmal A. fib ? Rate controlled on systemic anticoagulation with Eliquis -05/14/2022's Eliquis discontinued in view of worsening anemia 9.? GERD ? On PPI 10.? Class II obesity with BMI of 35.7 ? Weight loss advised 11.? DVT prophylaxis ? Was on Eliquis discontinued bilateral SCDs for now Total time of the visit including total time spent in counseling or coordination of care, (more than 50% of the total time, spent in obtaining medical information from nurses and other ancillary care providers,explaining to the patient about labs, imaging, diagnosis and management), discussion in the conference call with [facility] Jessica Tejeda, retail administrative assistant and transfer engineer, review of labs and imaging is 50 minutes. Physical Exam Narrative Patient was seen on the day of discharge Physical exam General: Confused, sleepy,, fluctuating level of consciousness HEENT: Pale looking, jaundiced atraumatic, PERRLA, EOMI, Normocephalic Oral: Oral mucosa dry.? No Gingival or Mucosal Lesions/ Ulcerations Neck: Supple, No JVD, Negative Carotid Bruits Lungs:? Air entry diminished in bilateral lung bases.? ? On 2 L of oxygen.? Mild bibasilar crepitations Cardiovascular: Regular rate, Regular Rhythm, Normal S1, Normal S2, No murmurs Abdomen: Abdominal distention, ascites.? Bowel Sounds Present, Soft, Non Tender.? Fecal management system.? Liquid stool : Degroot catheter, inserted 05/14.? Yellow-colored urine.? No renal angle tenderness.? No suprapubic tenderness. Extremities: Bilateral pitting lower extremity diffuse edema, Capillary Refill Less than 3 Seconds Skin: No rashes, No breakdown Musculoskeletal: No Tenderness to Palpation of Joints or Extremities Neurological: Cranial nerves II-XII grossly intact, DTR? 2+/4 Psych/Mental Status: Flat affect. Weight / BMI Weight Weight: 288 lb 12.889 oz Body Mass Index (BMI) 35.2 ABG / Lab / Microbiology Data Result Diagrams: 05/15/22 04:30 05/15/22 04:30 Laboratory: Laboratory Results - last 24 hr 05/11/22 05:55: Serum Copper 87, IgG 2009 H, IgA 896 H, IgM 260 H, IgE 2168 H, c-ANCA Antibody <1:20, Atypical p-ANCA <1:20, p-ANCA Antibody <1:20, Anti-Smooth Muscle Ab 33 H 05/15/22 04:30: Diff Path Review Reviewed 05/15/22 08:15: PT 28.5 H, INR 2.7, APTT 41.0 H 05/15/22 08:15: PT Cancelled, INR Cancelled 05/15/22 08:20: MRSA (PCR) Negative 05/15/22 08:20: Urine Color Yellow, Urine Clarity Sl. Cloudy, Urine pH 6.0, Ur Specific [place] 1.010, Urine Protein Negative, Urine Glucose (UA) Normal, Urine Ketones Negative, Urine Occult Blood 150 H, Urine Nitrite Negative, Urine Bilirubin Negative, Urine Urobilinogen Normal, Ur Leukocyte Esterase Negative, Urine RBC 10-25 SEEN, Urine WBC 0 SEEN, Ur Squamous Epith Cells 0 SEEN, Urine Bacteria 0 SEEN, Urine Mucus 0 SEEN Microbiology: Microbiology 05/15/22 22:55 Nasal Secretion SARS-CoV-2 Antigen (Rapid) - Final Radiography Diagnostic Testing: Radiology Impression Abdomen/Pelvis CT 05/15/22 18:19 IMPRESSION: 1. Bilateral pleural effusions with bilateral lower lobe consolidation compatible with pneumonia. 2. Dilated gas and fluid-filled loops of small bowel which may represent enteritis or ileus. 3. Calcification of the pericardium along the right atrium which may be from previous pericarditis. 4. Tiny gallstones or sludge. There is no obvious inflammation identified. Electronically Signed: Yamil Holloway MD at 20:11 EDT , Meaningful Use Info Meaningful Use Diagnoses (Choose all that apply): None applicable Discharge Plan Admission Admit Date/Time: 05/09/22 13:40 Primary Reason for Your Visit: Acute liver injury on chronic alcoholic liver disease Attending Provider: Luis Green Primary Care Provider: Jovan Hamilton Consulting Providers: Rhina Varghese ; Ashly Atwood ; Lilli Munoz ; Marcell Sanders ; Ihsan Gu ; Tonya John NP ; Juice Marinelli Discharge Orders/Prescriptions Prescriptions: No Action furosemide 40 mg tablet 40 mg PO DAILY Hold Instructions: Resume on 04/08/22. Label Comments: TAKE 1 TABLET BY MOUTH ONCE DAILY metoprolol succinate 100 mg tablet extended release 24 hr 100 mg PO DAILY Label Comments: TAKE 1 TABLET BY MOUTH ONCE DAILY losartan-hydrochlorothiazide 100-12.5 mg tablet 1 tab PO DAILY Label Comments: TAKE 1 TABLET BY MOUTH ONCE DAILY Eliquis 5 mg tablet 5 mg PO BID Hold Instructions: Resume on 04/08/22. Label Comments: TAKE 1 TABLET BY MOUTH TWICE DAILY potassium chloride 10 MEQ tablet,ER particles/crystals 20 meq PO DAILY Label Comments: supplement pantoprazole 40 mg Tablet,Delayed Release (Dr/Ec) 40 mg PO BID 30 Days Qty: 60 0RF albuterol sulfate 90 mcg/actuation HFA aerosol inhaler 2 inh INHALATION Q4H PRN PRN (Reason: breathing) Referrals / Follow Up: Jovan Hamilton MD [Primary Care Provider] - Disposition Disposition (needs filled in before D/C Order can be placed): Acute Care Hospital Charges/Coding Visit Charges Inpatient E&M: 90375 Disch Hosp
== END 2022-05-16 02:11 | disposition short-term general hospital (02) | DRG 432 ==
LOC: ED 13:50 → MS3 14:16 → ICU 05-14 09:20
PROVIDERS: Anesthesiology; Internal Medicine; Internal Medicine Critical Care Medicine; Internal Medicine Gastroenterology; Nurse Practitioner Family; Physician Assistant; Admitting Provider Internal Medicine; Emergency Provider Emergency Medicine; PCP Family Medicine; Visit Provider Internal Medicine
PROC: 0DJD8ZZ Inspection of Lower Intestinal Tract, Via Natural or Artificial Opening Endoscopic (ICD-10-PCS; CPT 45378; principal; 2022-05-11 08:00)
PROC: 0DJ08ZZ Inspection of Upper Intestinal Tract, Via Natural or Artificial Opening Endoscopic (ICD-10-PCS; CPT 43235; principal; 2022-05-14 15:55)
DX: K70.31 Alcoholic cirrhosis of liver with ascites (principal); K72.00 Acute and subacute hepatic failure without coma; J96.01 Acute respiratory failure with hypoxia; K76.7 Hepatorenal syndrome; G92.8 Other toxic encephalopathy; K31.811 Angiodysplasia of stomach and duodenum with bleeding; K55.21 Angiodysplasia of colon with hemorrhage; N17.9 Acute kidney failure, unspecified; K76.6 Portal hypertension; I13.0 Hypertensive heart and chronic kidney disease with heart failure and stage 1 through stage 4 chronic kidney disease, or unspecified chronic kidney disease; D62 Acute posthemorrhagic anemia; I48.0 Paroxysmal atrial fibrillation; N18.32 Chronic kidney disease, stage 3b; D69.6 Thrombocytopenia, unspecified; E88.09 Other disorders of plasma-protein metabolism, not elsewhere classified; D50.9 Iron deficiency anemia, unspecified; E87.6 Hypokalemia; K21.9 Gastro-esophageal reflux disease without esophagitis; E80.7 Disorder of bilirubin metabolism, unspecified; K63.5 Polyp of colon; K57.30 Diverticulosis of large intestine without perforation or abscess without bleeding; K02.9 Dental caries, unspecified; J45.20 Mild intermittent asthma, uncomplicated; F17.220 Nicotine dependence, chewing tobacco, uncomplicated; K70.11 Alcoholic hepatitis with ascites; F10.11 Alcohol abuse, in remission; K31.89 Other diseases of stomach and duodenum; N50.89 Other specified disorders of the male genital organs; Z79.01 Long term (current) use of anticoagulants; J38.4 Edema of larynx; Z20.822 Contact with and (suspected) exposure to COVID-19; Z79.899 Other long term (current) drug therapy; R16.1 Splenomegaly, not elsewhere classified; E66.9 Obesity, unspecified; Z68.35 Body mass index [BMI] 35.0-35.9, adult; R04.0 Epistaxis; R50.9 Fever, unspecified
CPT/HCPCS: 36415; 36600; 71045; 74018; 74176; 76770; 80048; 80053; 81001; 82103; 82140; 82525; 82570; 82728; 82784; 82785; 82803; 82962; 83516; 83735; 84100; 84300; 84540; 85014; 85018; 85025; 85610; 85730; 86225; 86235; 86256; 86850; 86900; 86901; 86920; 86922; 87040; 87086; 87641; 87811; 88305; 93005; 94640; 97802; 97803; 99251; 99284; J2185; J7040; J7120; P9016; P9047; A4216; G0463; J1940; J2405

== ENCOUNTER 2023-11-27 08:53 | Emergency (ER) | payer BC, SELFPAY ==
[2023-11-27] VITALS (14 sets, daily range): BP systolic 152–186; BP diastolic 90–102; PULSE 49–60; RESP 10–23; TEMP 36.8; O2SAT 91–99; BMI 34.6
--- NOTE | 2023-11-27 09:39 | EDS_ITS ---
HPI History of Present Illness Chief Complaint: Chest Pain Informant: patient Onset/Context/Timing Onset: Days (several) Activity at onset: gradual and onset Timing: Continuous Quality: Positive for Tightness Location: Right Chest (Upper, with occasional radiation toward the center but nowhere else) Current Severity: Moderate Maximum Severity: Moderate Worsened By: Breathing Relieved By: Nothing (Tried albuterol, no help) Associated Symptoms: Positive for Dyspnea and Cough; Negative for Nausea, Vomiting, Fever, Lightheadedness or Palpitations Narrative Narrative: Patient has been having some pleuritic right-sided chest discomfort for the last several days, minor cough but does not feel like he has a respiratory illness. It is pleuritic and makes him short of breath a little. He has asthma and has tried albuterol but it did not help. He saw his PCP had a chest x-ray that was normal followed by a D-dimer that was elevated in the 600s, his PCP is at [facility] and Dr. Hamilton's office, they told him to go to the ER of his choice and ask for a CT to evaluate for pulmonary embolus soon as possible. He does not have a history of blood clots, no pain or swelling in either leg. No recent travel, hospitalization, or surgery. His last surgery was about a year and a half ago when he had a liver transplant for English. Although EMR lists Eliquis is one of his medications, he stopped taking it because he was on it for atrial fibrillation and postop 1.5 years ago after his liver transplant, he had no more evidence of A-fib so he discontinued it in consultation with his physician. [facility] Medical History Afib RON (acute kidney injury) Anasarca Ascites due to chronic alcoholic hepatitis Chronic anemia Cirrhosis Former smoker GI bleed History of alcohol abuse Hyperbilirubinemia Hypertension Hypoalbuminemia Irregular heart beat Macrocytic anemia Mild intermittent asthma Pancreatitis Portal hypertension Resistant hypertension Splenomegaly Stage 3b chronic kidney disease (CKD) Thrombocytopenia Home Medications apixaban 5 mg tablet (Eliquis) 5 mg PO BID 04/02/22 [History Last Taken Unknown] furosemide 40 mg tablet 40 mg PO DAILY 04/02/22 [History Last Taken Unknown] losartan 100 mg-hydrochlorothiazide 12.5 mg tablet 1 tab PO DAILY 04/02/22 [History Last Taken Unknown] metoprolol succinate 100 mg tablet,extended release 24 hr 100 mg PO DAILY 04/02/22 [History Last Taken Unknown] potassium chloride 10 mEq tablet,extended release(part/cryst) 20 meq PO DAILY supplement 04/02/22 [History Last Taken Unknown] pantoprazole 40 mg tablet,delayed release 40 mg PO BID 30 days #60 tabs 04/05/22 [Rx Last Taken Unknown] albuterol sulfate 90 mcg/actuation aerosol inhaler 2 inh inhalation Q4H PRN PRN breathing 05/09/22 [History Last Taken Unknown] prednisone 20 mg tablet 40 mg (2 x 20 mg) PO DAILY #10 TABLETS 11/27/23 [Rx Last Taken Unknown] Allergy/AdvReac Type Severity Reaction Status Date / Time fish derived Allergy Anaphylaxis Verified 11/27/23 08:54 Penicillins Allergy Hives Verified 11/27/23 08:54 Family History (Updated 05/09/22 @ 15:[address] Rhina Varghese DO) Father Liver disease Other Aortic valve disease CAD (coronary artery disease) COPD (chronic obstructive pulmonary disease) Cancer Hyperlipidemia Hypertension Surgical History History of mandibular surgery S/P hernia surgery Social History household members: spouse housing: house current occupational status: employed current occupation: Works in the [employer] business Smoking Status: Former smoker Smokeless tobacco user: chewing tobacco how long ago did patient quit smokin yrs alcohol intake: former details: Last drink was 2021 substance use type: does not use ROS ROS ED Constitutional Constitutional ED: Denies chills or fever(s) Eyes Eyes: Denies change in vision or diplopia ENT ENT ED: Denies rhinorrhea or sore throat Cardiovascular Cardiovascular: Reports as per HPI and chest pain; Denies leg edema or palpitations Respiratory/Chest Respiratory/Chest: Reports cough and dyspnea Gastrointestinal Gastrointestinal: Denies abdominal pain, diarrhea, nausea or vomiting Genitourinary Genitourinary ED: Denies dysuria or hematuria Musculoskeletal Musculoskeletal: Denies back pain or neck pain Integumentary Denies abscess or rash Neurologic Neurologic: Denies headache(s), paresthesias or weakness Psychiatric Psychiatric: Denies anxiety or suicidal thoughts EXAM Physical Exam Const Vital Signs: 11/27/23 08:55 11/27/23 08:53 11/27/23 09:37 Temperature 98.2 F Temperature Source Temporal Pulse Rate 60 Respiratory Rate 18 Respiratory Effort Short of Breath Blood Pressure 186/101 H Blood Pressure Mean 129 Pulse Ox 99 Oxygen Delivery Method Room Air Room Air 11/27/23 10:15 11/27/23 10:25 11/27/23 10:30 Temperature Temperature Source Pulse Rate 53 L Respiratory Rate 11 L Respiratory Effort Blood Pressure 157/90 H 152/100 H Blood Pressure Mean 111 117 Pulse Ox 97 Oxygen Delivery Method 11/27/23 10:40 11/27/23 10:45 11/27/23 10:50 Temperature Temperature Source Pulse Rate 54 L 50 L 50 L Respiratory Rate 19 H 21 H 16 Respiratory Effort Blood Pressure 168/97 H Blood Pressure Mean 119 Pulse Ox 93 95 95 Oxygen Delivery Method 11/27/23 11:00 Temperature Temperature Source Pulse Rate 51 L Respiratory Rate 16 Respiratory Effort Blood Pressure 166/102 H Blood Pressure Mean 119 Pulse Ox 96 Oxygen Delivery Method Positive well nourished and well developed General Appearance ED: well developed and NAD HEENT Reports moist mucous membranes normocephalic and atraumatic Eyes PERRL and EOMs intact bilaterally Neck full ROM, supple and no JVD Resp normal respiratory effort Resp Narrative: Slight inspiratory wheeze right upper chest only. Otherwise clear throughout. Cardio regular rate, regular rhythm and no murmurs Rate: Negative for tachycardic GI non-tender and non-distended Auscultation: normoactive bowel sounds Palpation: soft Back/Spine no CVA tenderness General Back: other FROM Extremity normal to inspection General Extremety ED: Negative for edema, pulses abnormal or tenderness General Extremity: Negative for edema or pulses abnormal Neuro oriented x3, CN's II-XII intact bilaterally and no sensory deficits noted Sensorium / Orientation: awake and alert Motor Exam: strength 5/5 throughout Psych mental status grossly normal Skin no rashes or lesions noted and no wounds MDM MDM MDM Narrative Medical decision making narrative: Labs other than D-dimer were obtained and they are unremarkable except for mild renal insufficiency, these were obtained because his blood pressure is 186/101 in context of this discomfort. Troponin within normal limits, EKG normal. We went ahead and obtained a CTA of the chest. I reviewed the images and report which I agree with, it is negative for anything acute. There is no pulmonary parenchymal abnormality/consolidation, or pulmonary embolus. The patient does have a very slight inspiratory wheeze in the area where he is complaining of discomfort. This is on the right side and his EKG shows no evidence of pericarditis. Given all of this, I think would be reasonable to treat his asthma with a short course of prednisone. He is amenable to this, I do not think this will harm his liver transplant. Advised to follow-up with his doctor for persistent problems. Lab Data Attestation: I reviewed the patient's lab results. Labs: Laboratory Results - last 24 hr 11/27/23 09:12 WBC 9.0 RBC 5.15 Hgb 14.0 Hct 43.1 MCV 83.7 MCH 27.2 MCHC 32.5 RDW Std Deviation 45.2 H RDW Coeff of Chris 14.8 H Plt Count 148 L MPV 9.7 Immature Gran % (Auto) 0.400 Neut % (Auto) 54.1 Lymph % (Auto) 26.7 [place] % (Auto) 7.3 Eos % (Auto) 11.2 H Baso % (Auto) 0.3 Absolute Neuts (auto) 4.9 Absolute Lymphs (auto) 2.41 Nucleated RBC % 0 Sodium 141 Potassium 4.0 Chloride 113 H Carbon Dioxide 25.0 Anion Gap 3 L BUN 22 H Creatinine 1.63 H Estim Creat Clear Calc 80.73 Est GFR (MDRD) Af Amer 58 L Est GFR (MDRD) Non-Af 48 L BUN/Creatinine Ratio 13.5 Glucose 140 H Calcium 8.8 Troponin I High Sens 14 Radiography Diagnostic Testing: Clinical Impression(s) from Imaging Studies Chest CTA 11/27/23 10:15 IMPRESSION: No evidence of pulmonary embolism. Status post cholecystectomy. Electronically Signed: Ulises Jameson MD at 10:49 EST , Rhythm Strip Rhythm Strip: Sinus Rhythm Rate: 55 Ectopy: None EKG Initial EKG: Attestation: I personally reviewed and interpreted this EKG as follows: Interpretation: Sinus Rhythm and No Acute Injury Pattern Comments: Normal EKG. Computer indicates first degree AV block, I disagree Prior EKG tracings: available for review Prior: Unchanged Discharge Plan Triage Chief Complaint: Chest Pain ED Provider: Skyler Ortega Dx/Rx/DC Orders Clinical Impression: Right-sided chest pain, Asthma Instructions: ED Chest Pain, Uncertain Cause Prescriptions: New prednisone 20 mg tablet 40 mg PO DAILY Qty: 10 0RF No Action furosemide 40 mg tablet 40 mg PO DAILY Hold Instructions: Resume on 04/08/22. Patient Comments: TAKE 1 TABLET BY MOUTH ONCE DAILY metoprolol succinate 100 mg tablet extended release 24 hr 100 mg PO DAILY Patient Comments: TAKE 1 TABLET BY MOUTH ONCE DAILY losartan-hydrochlorothiazide 100-12.5 mg tablet 1 tab PO DAILY Patient Comments: TAKE 1 TABLET BY MOUTH ONCE DAILY Eliquis 5 mg tablet 5 mg PO BID Hold Instructions: Resume on 04/08/22. Patient Comments: TAKE 1 TABLET BY MOUTH TWICE DAILY potassium chloride 10 MEQ tablet,ER particles/crystals 20 meq PO DAILY Patient Comments: supplement pantoprazole 40 mg Tablet,Delayed Release (Dr/Ec) 40 mg PO BID 30 Days Qty: 60 0RF albuterol sulfate 90 mcg/actuation HFA aerosol inhaler 2 inh INHALATION Q4H PRN PRN (Reason: breathing) Primary Care Provider: Jovan Hamilton Referrals: Jovan Hamilton MD [Primary Care Provider] - 3-5 Days if not improving Disposition Disposition: Home, Self Care
[2023-11-27 09:45] LABS: Absolute Lymphocyte Count 2.41 X10^3/uL (0.83-4.51); Absolute Neutrophil Count 4.9 X10^3/uL (2.0-7.7); Basophil# 0.03 X10^3/uL; Basophil% 0.3 % (0-1); Eosinophil# 1.01 X10^3/uL; Eosinophils% 11.2 % (0-5); Hematocrit 43.1 % (40-54); Lymphocyte # 2.41 X10^3/ul (0.83-4.51); Lymphocyte % 26.7 % (19-41); Mean Corp Hgb Conc 32.5 g/dL (32-36); Mean Corpuscular Hgb 27.2 pg (27.0-32.0); Mean Corpuscular Volume 83.7 fL (80-94); Mean Platelet Vol. 9.7 fl (6.2-12.0); Monocyte# 0.66 X10^3/uL; Monocyte% 7.3 % (0-10); NRBC Flagged by Analyzer 0 % (0-5); Neutrophil # 4.86 X10^3/uL (2.7-7.7); Neutrophil % 54.1 % (47-70); Platelet Count 148 K/mm3 (150-450); RBC Distribution Width CV 14.8 % (11.6-14.6); RBC Distribution Width SD 45.2 fl (35.1-43.9); Red Blood Count 5.15 M/mm3 (4.6-6.2)
[2023-11-27 10:04] LABS: Anion Gap 3 (5-15); BUN 22 mg/dL (7-18); BUN/Creat Ratio 13.5 RATIO (10-20); Calcium,Total 8.8 mg/dL (8.5-10.1); Chloride 113 mmol/L (98-107); Creatinine, Serum 1.63 mg/dL (0.70-1.30); EST Glomerular Filtration Rate 48 mL/min (>60); Est Glom Filt Rate - Afr Amer 58 mL/min (>60); Estimated Creatinine Clearance 80.73 ml/min; Glucose 140 mg/dL (74-106); Sodium Level 141 mmol/L (136-145); Troponin-I HS 14 pg/mL (3.0-78.0)
--- NOTE | 2023-11-27 10:15 | CT_ITS ---
STUDY: CTA CHEST REASON FOR EXAM: Male, 53 years old. R cp, sob, elevated d-dimer RADIATION DOSAGE (If Supplied By Facility): CTDIvol = ( 15.04 ) mGy, DLP = ( 650.67 ) mGycm TECHNIQUE: The examination was performed with the intravenous administration of IV 100mL Isovue-370. Post-processing of the angiographic images was performed, with multiplanar reformation and 3D reconstruction. Individualized dose optimization techniques were used for this CT. COMPARISON: None. FINDINGS: Normal enhancement of the main pulmonary artery and right and left pulmonary arteries. Normal enhancement of the bilateral peripheral pulmonary arteries. There is no demonstrated pulmonary embolism. Normal thoracic aorta and visualized great vessels. There is no demonstrated aortic dissection. There are calcifications of the coronary arteries. Normal mediastinum. Normal hilar regions. Normal visualized trachea and bronchi. The lungs are well expanded. Normal pulmonary parenchyma. Normal pleura. Normal chest wall structures. Normal osseous structures. The patient is status post cholecystectomy. CT/CTA Chest W/WO Contrast IMPRESSION: No evidence of pulmonary embolism. Status post cholecystectomy. Electronically Signed: Ulises Jameson MD at 10:49 EST ,
== END 2023-11-27 12:34 | disposition home or self-care (01) ==
PROVIDERS: Emergency Provider Emergency Medicine; PCP Family Medicine; Visit Provider Emergency Medicine
DX: R07.9 Chest pain, unspecified (principal); Z94.4 Liver transplant status; I48.91 Unspecified atrial fibrillation; N18.32 Chronic kidney disease, stage 3b; J45.909 Unspecified asthma, uncomplicated; Z87.891 Personal history of nicotine dependence; Z82.49 Family history of ischemic heart disease and other diseases of the circulatory system; I12.9 Hypertensive chronic kidney disease with stage 1 through stage 4 chronic kidney disease, or unspecified chronic kidney disease
CPT/HCPCS: 71275; 80048; 84484; 85025; 93005; 99284; Q9967; A4216

== ENCOUNTER → 2024-04-26 | Outpatient (CLI) | payer OTHER, SELFPAY ==
[2024-04-26 10:43] LABS: Absolute Lymphocyte Count 2.45 X10^3/uL (0.83-4.51); Basophil# 0.03 X10^3/uL; Basophil% 0.4 % (0-1); Eosinophil# 0.38 X10^3/uL; Eosinophils% 4.4 % (0-5); Hematocrit 42.9 % (40-54); Hemoglobin 13.6 g/dL (13.0-16.5); Lymphocyte # 2.45 X10^3/ul (0.83-4.51); Lymphocyte % 28.6 % (19-41); Mean Corp Hgb Conc 31.7 g/dL (32-36); Mean Corpuscular Volume 88.5 fL (80-94); Mean Platelet Vol. 8.9 fl (6.2-12.0); Monocyte# 0.64 X10^3/uL; Monocyte% 7.5 % (0-10); NRBC Flagged by Analyzer 0 % (0-5); Neutrophil # 5.03 X10^3/uL (2.7-7.7); Neutrophil % 58.7 % (47-70); Platelet Count 144 K/mm3 (150-450); RBC Distribution Width CV 17.7 % (11.6-14.6); RBC Distribution Width SD 56.4 fl (35.1-43.9); Red Blood Count 4.85 M/mm3 (4.6-6.2); White Blood Count 8.6 K/mm3 (4.4-11.0)
[2024-04-26 11:45] LABS: ALB/GLOB Ratio 0.9 RATIO (0.9-2.4); AST(SGOT) 15 U/L (15-37); Alanine Aminotransfer ALT/SGPT 24 U/L (16-61); Albumin, Serum 3.5 g/dL (3.2-5.0); Alkaline Phosphatase 157 U/L (45-117); Anion Gap 5 (5-15); BUN 23 mg/dL (7-18); BUN/Creat Ratio 12.8 RATIO (10-20); Calcium,Total 8.3 mg/dL (8.5-10.1); Chloride 112 mmol/L (98-107); Cholesterol 122 mg/dL (200); Creatinine, Serum 1.79 mg/dL (0.70-1.30); EST Glomerular Filtration Rate 43 mL/min (>60); Est Glom Filt Rate - Afr Amer 52 mL/min (>60); Globulin 4.1 g/dL (2.2-4.2); Glucose 118 mg/dL (74-106); High Density Lipoprotein 51 mg/dL; Phosphorus 3.1 mg/dL (2.5-4.9); Potassium 4.4 mmol/L (3.5-5.1); Protein, Total 7.6 g/dL (6.4-8.2); Sodium Level 140 mmol/L (136-145); Triglycerides 72 mg/dL; Very Low Density Lipoprotein 14 mg/dL (5-40)
[2024-04-28 02:07] LABS: Tacrolimus (FK506) 5.8 ng/mL (2.0-20.0)
== END | disposition home or self-care (01) ==
PROVIDERS: PCP Family Medicine
DX: K76.9 Liver disease, unspecified (principal); Z48.23 Encounter for aftercare following liver transplant; Z94.4 Liver transplant status; E83.30 Disorder of phosphorus metabolism, unspecified; R73.02 Impaired glucose tolerance (oral)
CPT/HCPCS: 36415; 80053; 80061; 80197; 84100; 85025

== ENCOUNTER 2024-05-28 10:13 | Outpatient (RCR) | payer OTHER, SELFPAY ==
[2024-05-28 10:38] LABS: Absolute Lymphocyte Count 2.05 X10^3/uL (0.83-4.51); Absolute Neutrophil Count 6.3 X10^3/uL (2.0-7.7); Basophil# 0.03 X10^3/uL; Basophil% 0.3 % (0-1); Eosinophil# 0.45 X10^3/uL; Eosinophils% 4.7 % (0-5); Hematocrit 42.4 % (40-54); Lymphocyte # 2.05 X10^3/ul (0.83-4.51); Lymphocyte % 21.3 % (19-41); Mean Corpuscular Hgb 28.7 pg (27.0-32.0); Mean Corpuscular Volume 86.9 fL (80-94); Mean Platelet Vol. 10.1 fl (6.2-12.0); Monocyte# 0.79 X10^3/uL; Monocyte% 8.2 % (0-10); NRBC Flagged by Analyzer 0 % (0-5); Neutrophil # 6.26 X10^3/uL (2.7-7.7); Neutrophil % 65.2 % (47-70); POSITIVE COUNT YES; Platelet Count 96 K/mm3 (150-450); RBC Distribution Width CV 16.1 % (11.6-14.6); RBC Distribution Width SD 51.2 fl (35.1-43.9); Red Blood Count 4.88 M/mm3 (4.6-6.2); White Blood Count 9.6 K/mm3 (4.4-11.0)
[2024-05-28 10:39] LABS: Differential Indicated SCAN CRITERIA MET
[2024-05-28 10:59] LABS: Platelet Estimate MOD DEC (ADEQ)
[2024-05-28 11:02] LABS: ALB/GLOB Ratio 0.9 RATIO (0.9-2.4); AST(SGOT) 15 U/L (15-37); Alanine Aminotransfer ALT/SGPT 20 U/L (16-61); Albumin, Serum 3.5 g/dL (3.2-5.0); Alkaline Phosphatase 148 U/L (45-117); Anion Gap 5 (5-15); BUN 16 mg/dL (7-18); BUN/Creat Ratio 10.1 RATIO (10-20); Calcium,Total 8.8 mg/dL (8.5-10.1); Chloride 111 mmol/L (98-107); Creatinine, Serum 1.59 mg/dL (0.70-1.30); EST Glomerular Filtration Rate 49 mL/min (>60); Est Glom Filt Rate - Afr Amer 59 mL/min (>60); Glucose 136 mg/dL (74-106); Potassium 3.6 mmol/L (3.5-5.1); Protein, Total 7.5 g/dL (6.4-8.2); Sodium Level 141 mmol/L (136-145)
[2024-06-02 08:13] LABS: Tacrolimus (FK506) 6.1 ng/mL (2.0-20.0)
== END 2024-05-28 18:00 | disposition home or self-care (01) ==
LOC: LAB 10:13
PROVIDERS: PCP Family Medicine
DX: K76.9 Liver disease, unspecified (principal); Z48.23 Encounter for aftercare following liver transplant; Z94.4 Liver transplant status; Z41.8 Encounter for other procedures for purposes other than remedying health state; E83.30 Disorder of phosphorus metabolism, unspecified; R73.02 Impaired glucose tolerance (oral)
CPT/HCPCS: 36415; 80053; 80197; 85025

== ENCOUNTER 2024-06-25 11:03 | Outpatient (RCR) | payer OTHER, SELFPAY ==
[2024-06-25 11:36] LABS: Absolute Lymphocyte Count 2.03 X10^3/uL (0.83-4.51); Absolute Neutrophil Count 5.3 X10^3/uL (2.0-7.7); Basophil# 0.02 X10^3/uL; Basophil% 0.2 % (0-1); Eosinophil# 0.48 X10^3/uL; Eosinophils% 5.6 % (0-5); Hematocrit 42.6 % (40-54); Lymphocyte # 2.03 X10^3/ul (0.83-4.51); Lymphocyte % 23.7 % (19-41); Mean Corp Hgb Conc 32.9 g/dL (32-36); Mean Corpuscular Hgb 29.3 pg (27.0-32.0); Mean Corpuscular Volume 89.1 fL (80-94); Mean Platelet Vol. 10.1 fl (6.2-12.0); Monocyte# 0.69 X10^3/uL; Monocyte% 8.1 % (0-10); NRBC Flagged by Analyzer 0 % (0-5); Neutrophil # 5.32 X10^3/uL (2.7-7.7); Platelet Count 104 K/mm3 (150-450); RBC Distribution Width SD 48.7 fl (35.1-43.9); Red Blood Count 4.78 M/mm3 (4.6-6.2); White Blood Count 8.6 K/mm3 (4.4-11.0)
[2024-06-25 12:00] LABS: ALB/GLOB Ratio 0.9 RATIO (0.9-2.4); AST(SGOT) 14 U/L (15-37); Alanine Aminotransfer ALT/SGPT 24 U/L (16-61); Albumin, Serum 3.6 g/dL (3.2-5.0); Alkaline Phosphatase 125 U/L (45-117); Anion Gap 4 (5-15); BUN 22 mg/dL (7-18); BUN/Creat Ratio 15.4 RATIO (10-20); Calcium,Total 8.8 mg/dL (8.5-10.1); Chloride 111 mmol/L (98-107); Cholesterol 135 mg/dL (200); Creatinine, Serum 1.43 mg/dL (0.70-1.30); EST Glomerular Filtration Rate 55 mL/min (>60); Est Glom Filt Rate - Afr Amer 67 mL/min (>60); Glucose 122 mg/dL (74-106); High Density Lipoprotein 50 mg/dL; Phosphorus 3.2 mg/dL (2.5-4.9); Potassium 3.7 mmol/L (3.5-5.1); Protein, Total 7.6 g/dL (6.4-8.2); Sodium Level 141 mmol/L (136-145); Triglycerides 127 mg/dL; Very Low Density Lipoprotein 25 mg/dL (5-40)
[2024-06-28 03:06] LABS: Tacrolimus (FK506) 4.6 ng/mL (2.0-20.0)
== END 2024-06-25 18:00 | disposition home or self-care (01) ==
LOC: LAB 11:03
PROVIDERS: PCP Family Medicine
DX: K76.89 Other specified diseases of liver (principal); Z48.23 Encounter for aftercare following liver transplant; Z94.4 Liver transplant status; Z41.8 Encounter for other procedures for purposes other than remedying health state; E83.30 Disorder of phosphorus metabolism, unspecified; R73.02 Impaired glucose tolerance (oral)
CPT/HCPCS: 36415; 80053; 80061; 80197; 84100; 85025

== ENCOUNTER 2024-07-30 10:41 | Outpatient (RCR) | payer OTHER, SELFPAY ==
[2024-07-30 11:20] LABS: Absolute Lymphocyte Count 2.25 X10^3/uL (0.83-4.51); Absolute Neutrophil Count 4.9 X10^3/uL (2.0-7.7); Basophil# 0.04 X10^3/uL; Basophil% 0.5 % (0-1); Eosinophil# 0.46 X10^3/uL; Eosinophils% 5.5 % (0-5); Hematocrit 42.8 % (40-54); Hemoglobin 14.1 g/dL (13.0-16.5); Lymphocyte # 2.25 X10^3/ul (0.83-4.51); Mean Corp Hgb Conc 32.9 g/dL (32-36); Mean Corpuscular Hgb 29.7 pg (27.0-32.0); Mean Corpuscular Volume 90.3 fL (80-94); Mean Platelet Vol. 10.6 fl (6.2-12.0); Monocyte# 0.67 X10^3/uL; Monocyte% 8.1 % (0-10); NRBC Flagged by Analyzer 0 % (0-5); Neutrophil # 4.87 X10^3/uL (2.7-7.7); Neutrophil % 58.5 % (47-70); Platelet Count 114 K/mm3 (150-450); RBC Distribution Width SD 46.5 fl (35.1-43.9); Red Blood Count 4.74 M/mm3 (4.6-6.2); White Blood Count 8.3 K/mm3 (4.4-11.0)
[2024-07-30 11:45] LABS: AST(SGOT) 12 U/L (15-37); Alanine Aminotransfer ALT/SGPT 21 U/L (16-61); Albumin, Serum 3.7 g/dL (3.2-5.0); Alkaline Phosphatase 140 U/L (45-117); Anion Gap 7 (5-15); BUN 15 mg/dL (7-18); BUN/Creat Ratio 10.6 RATIO (10-20); Calcium,Total 8.9 mg/dL (8.5-10.1); Chloride 110 mmol/L (98-107); Creatinine, Serum 1.41 mg/dL (0.70-1.30); EST Glomerular Filtration Rate 56 mL/min (>60); Est Glom Filt Rate - Afr Amer 68 mL/min (>60); Globulin 3.8 g/dL (2.2-4.2); Glucose 153 mg/dL (74-106); Protein, Total 7.5 g/dL (6.4-8.2); Sodium Level 142 mmol/L (136-145)
[2024-08-03 00:07] LABS: Tacrolimus (FK506) 6.8 ng/mL (2.0-20.0)
== END 2024-07-30 18:00 | disposition home or self-care (01) ==
LOC: LAB 10:41
PROVIDERS: PCP Family Medicine
DX: K76.9 Liver disease, unspecified (principal); Z48.23 Encounter for aftercare following liver transplant; Z94.4 Liver transplant status; Z41.8 Encounter for other procedures for purposes other than remedying health state; E83.30 Disorder of phosphorus metabolism, unspecified; R73.02 Impaired glucose tolerance (oral)
CPT/HCPCS: 36415; 80053; 80197; 85025

== ENCOUNTER 2024-09-10 10:29 | Outpatient (RCR) | payer OTHER, SELFPAY ==
[2024-09-10 11:17] LABS: Absolute Lymphocyte Count 1.92 X10^3/uL (0.83-4.51); Basophil# 0.03 X10^3/uL; Basophil% 0.4 % (0-1); Eosinophil# 0.41 X10^3/uL; Eosinophils% 5.1 % (0-5); Hematocrit 42.8 % (40-54); Hemoglobin 14.4 g/dL (13.0-16.5); Lymphocyte # 1.92 X10^3/ul (0.83-4.51); Lymphocyte % 23.7 % (19-41); Mean Corp Hgb Conc 33.6 g/dL (32-36); Mean Corpuscular Hgb 30.4 pg (27.0-32.0); Mean Corpuscular Volume 90.3 fL (80-94); Monocyte# 0.69 X10^3/uL; Monocyte% 8.5 % (0-10); NRBC Flagged by Analyzer 0 % (0-5); Neutrophil # 5.01 X10^3/uL (2.7-7.7); Neutrophil % 61.9 % (47-70); Platelet Count 119 K/mm3 (150-450); RBC Distribution Width CV 14.6 % (11.6-14.6); RBC Distribution Width SD 47.9 fl (35.1-43.9); Red Blood Count 4.74 M/mm3 (4.6-6.2); White Blood Count 8.1 K/mm3 (4.4-11.0)
[2024-09-10 12:01] LABS: ALB/GLOB Ratio 0.8 RATIO (0.9-2.4); AST(SGOT) 16 U/L (15-37); Alanine Aminotransfer ALT/SGPT 28 U/L (16-61); Albumin, Serum 3.4 g/dL (3.2-5.0); Alkaline Phosphatase 127 U/L (45-117); Anion Gap 4 (5-15); BUN 16 mg/dL (7-18); BUN/Creat Ratio 12.3 RATIO (10-20); Calcium,Total 8.9 mg/dL (8.5-10.1); Chloride 111 mmol/L (98-107); EST Glomerular Filtration Rate 62 mL/min (>60); Est Glom Filt Rate - Afr Amer 75 mL/min (>60); Globulin 4.1 g/dL (2.2-4.2); Glucose 130 mg/dL (74-106); Potassium 3.7 mmol/L (3.5-5.1); Protein, Total 7.5 g/dL (6.4-8.2); Sodium Level 142 mmol/L (136-145)
[2024-09-13 22:06] LABS: Tacrolimus (FK506) 6.2 ng/mL (2.0-20.0)
== END 2024-09-18 18:00 | disposition home or self-care (01) ==
LOC: LAB 10:29
PROVIDERS: PCP Family Medicine
DX: K76.9 Liver disease, unspecified (principal); Z48.23 Encounter for aftercare following liver transplant; Z94.4 Liver transplant status; Z41.8 Encounter for other procedures for purposes other than remedying health state; E83.30 Disorder of phosphorus metabolism, unspecified; R73.02 Impaired glucose tolerance (oral)
CPT/HCPCS: 36415; 80053; 80197; 85025

== ENCOUNTER 2024-09-15 11:38 | Emergency (ER) | payer OTHER, SELFPAY ==
[2024-09-15 11:38] VITALS: BP 158/78; PULSE 86; RESP 16; TEMP 36; O2SAT 98; BMI 33.7
--- NOTE | 2024-09-15 11:59 | CT_ITS ---
We are attempting to reach an attending provider to discuss findings. An addendum with communication details will be sent when the communication is complete. EXAM: CT ABDOMEN AND PELVIS WITH INTRAVENOUS CONTRAST CLINICAL INDICATION: RLQ abdominal pain TECHNIQUE: Helically acquired images were obtained of the abdomen and pelvis with intravenous contrast. This CT exam was performed using one or more of the following dose reduction techniques: automated exposure control, adjustment of the mA and/or kV according to patient size, and/or use of iterative reconstruction technique. CONTRAST: IV 100mL Isovue-300 RADIATION DOSE: CTDIvol = 23.59 mGy, DLP = 1844.14 mGy-cm COMPARISON: CT abdomen and pelvis without contrast 05/15/2022. FINDINGS: LOWER THORAX: Partial calcification in the right side and left side of the pericardium. No pericardial effusion. Normal cardiac size. ABDOMEN: LIVER: See below. GALLBLADDER AND BILE DUCTS: Postsurgical absence of the gallbladder. No intrahepatic or extrahepatic biliary ductal dilatation. No calcified gallstones. No gallbladder distention or wall edema. PANCREAS: Unremarkable. No focal cystic or solid mass. SPLEEN: Unremarkable. Normal size without focal cystic or solid mass. ADRENALS: Unremarkable. No nodules. KIDNEYS AND URETERS: 3 cm nonenhancing left lower renal parenchymal cyst with CT number of 9.29 Hounsfield units. No stones or hydronephrosis in both kidneys. STOMACH AND BOWEL: Unremarkable. No stomach or bowel distention. No focal inflammatory change. PELVIS: APPENDIX: Abnormal thickening of the appendix with extensive inflammatory changes of the fat around the appendix consistent with acute appendicitis. BLADDER: Unremarkable. REPRODUCTIVE: Unremarkable as visualized. No mass. ABDOMEN and PELVIS: INTRAPERITONEAL SPACE: Unremarkable. No ascites or other fluid collection. No free air. BONES/JOINTS: L1 and L5 benign vertebral body hemangiomas are unchanged. No acute fractures. No lytic or blastic lesions. SOFT TISSUES: Unremarkable. No discrete abdominal or pelvic wall hernia. VASCULATURE: Unremarkable. Abdominal aorta is non-dilated. LYMPH NODES: Unremarkable. No enlarged lymph nodes. CT/Abdomen/Pelvis W IV Cont ONLY IMPRESSION: 1. Pronounced acute appendicitis with extensive inflammatory changes of the surrounding fat but no enhancing abscess or phlegmon. 2. Interval cholecystectomy. 3. 3 cm nonenhancing left posterior lower renal parenchymal cyst. This is unchanged. ACR White Paper guidelines (Herts, et al. JACR 2018; 15(2):264-273) suggest no follow-up is necessary. 4. Interval clearing of the edema in the subcutaneous fat around the abdomen and pelvis. 5. Interval clearing of bilateral posterior pleural effusions and the atelectases in the posterior lung bases. Electronically Signed: Gui Carlson MD at 13:53 EST ,
--- NOTE | 2024-09-15 12:03 | EDS_ITS ---
HPI History of Present Illness Chief Complaint: Abd Pain Informant: patient and spouse/S.O. Narrative Narrative: 53-year-old male presenting to the emergency department with right lower quadrant abdominal pain. Patient is a liver transplant recipient 2 years ago and is followed through the [facility]. He is on tacrolimus. He states that recently has had a couple episodes where shortly after eating he gets vomiting and upper abdominal pain. Friday evening after eating a large amount of meat loaf he had vomiting and abdominal pain that has since moved to the right lower quadrant suprapubic region. He states he has had to stay in bed because any movement makes his pain worse. He denies any dysuria urinary frequency or hematuria. He notes he had 2 bowel movements today. He states they are chronically loose due to the magnesium that he takes. Patient is unsure if he still has a gallbladder or if it was removed with the transplant. [facility] Medical History RON (acute kidney injury) Stage 3b chronic kidney disease (CKD) Chronic anemia Pancreatitis Former smoker Irregular heart beat Hypertension Hypoalbuminemia Ascites due to chronic alcoholic hepatitis Anasarca Cirrhosis GI bleed Portal hypertension Splenomegaly Thrombocytopenia Hyperbilirubinemia History of alcohol abuse Macrocytic anemia Afib Resistant hypertension Mild intermittent asthma Home Medications ?Medication ?Instructions ?Recorded ?Last Taken ?Type albuterol sulfate 90 mcg/actuation 2 inh inhalation Q4H PRN PRN 05/09/22 Unknown History aerosol inhaler breathing duloxetine 20 mg capsule,delayed 20 mg PO DAILY 09/15/24 Unknown History release gabapentin 800 mg tablet 800 mg PO TID 09/15/24 Unknown History hydralazine 100 mg tablet 100 mg PO TID 09/15/24 Unknown History magnesium oxide 800 mg PO TID 09/15/24 Unknown History metoprolol tartrate 100 mg tablet 100 mg PO BID 09/15/24 Unknown History nifedipine 60 mg tablet,extended 60 mg PO DAILY 09/15/24 Unknown History release tacrolimus 1 mg capsule, 2 mg PO BID 09/15/24 Unknown History immediate-release tamsulosin 0.4 mg capsule 0.4 mg PO DAILY 09/15/24 Unknown History Allergy/AdvReac Type Severity Reaction Status Date / Time fish derived Allergy Anaphylaxis Verified 09/15/24 11:41 Penicillins Allergy Hives Verified 09/15/24 11:41 Family History Father Liver disease Other Aortic valve disease CAD (coronary artery disease) COPD (chronic obstructive pulmonary disease) Cancer Hyperlipidemia Hypertension Surgical History Liver transplant recipient History of mandibular surgery S/P hernia surgery Social History household members: spouse housing: house current occupational status: employed current occupation: Works in the [employer] business Smoking Status: Former smoker Smokeless tobacco user: chewing tobacco how long ago did patient quit smokin yrs alcohol intake: former details: Last drink was 2021 substance use type: does not use ROS ROS ED Constitutional Constitutional ED: Denies chills, fever(s) or weight loss Eyes Eyes: Denies change in vision or diplopia ENT ENT ED: Denies ear pain, rhinorrhea or sore throat Cardiovascular Cardiovascular: Denies chest pain, orthopnea, palpitations or racing heartbeat Respiratory/Chest Respiratory/Chest: Denies cough, dyspnea or orthopnea Gastrointestinal Gastrointestinal: Reports abdominal pain, nausea and vomiting; Denies c onstipation or diarrhea Genitourinary Genitourinary ED: Denies dysuria, hematuria or urinary frequency Musculoskeletal Musculoskeletal: Denies arthralgias or myalgias Integumentary Denies abscess or rash Neurologic Neurologic: Denies headache(s) or weakness Psychiatric Psychiatric: Denies anxiety, depression, suicidal ideation or suicidal thoughts Endocrine Endocrinology: Denies polydipsia, polyphagia or polyuria Allergic/Immunologic Allergic/Immunologic ED: Denies mouth swelling, tongue swelling or urticaria EXAM Physical Exam Const Vital Signs: 09/15/24 11:38 Temperature 96.8 F L Temperature Source Temporal Pulse Rate 86 Respiratory Rate 16 Blood Pressure 158/78 H Blood Pressure Mean 104 Pulse Ox 98 Oxygen Delivery Method Room Air Positive well nourished, well developed and obese General Appearance ED: well developed and NAD Nutritional Appearance: obese HEENT Reports normocephalic, head/scalp atraumatic and moist mucous membranes Eyes PERRL and EOMs intact bilaterally Neck no lymphadenopathy, supple and no JVD Resp normal respiratory effort and clear to auscultation bilaterally Cardio regular rate, regular rhythm and no murmurs GI no masses GI Narrative: Healed surgical incisions noted on the abdomen Inspection: Negative for abdominal distention Auscultation: hypoactive bowel sounds Palpation: soft, tender RLQ and suprapubic, guarding and rebound tenderness present Back/Spine no CVA tenderness and normal ROM Extremity normal to inspection General Extremety ED: Negative for edema General Extremity: Negative for edema Neuro oriented x3 and CN's II-XII intact bilaterally Sensorium / Orientation: alert Motor Exam: strength 5/5 throughout Psych mental status grossly normal Mood & Affect: Negative for depressed or tearful Skin no rashes or lesions noted and no wounds MDM MDM MDM Narrative Medical decision making narrative: Differential diagnosis includes but not limited to appendicitis colitis diverticulitis UTI pelvic abscess acute cholecystitis acute rejection White count returns elevated 20.5 hemoglobin 15.5. Total bilirubin 1.4 direct bilirubin 0.35. Normal transaminases alkaline phosphatase is 119 [address]ase [address] then pelvis is consistent with acute appendicitis with appendicolith. Patient received morphine Zofran IV fluids as well as Flagyl and cefepime. I spoke with our on-call surgeon Dr. Mancera who recommends transfer to [facility]. I did speak with [facility] and the surgical quarterback of the day and the patient has been accepted and we are currently awaiting bed assignment History & Record Review Discussion w/independent historian: Patient and Significant other Lab Data Attestation: I reviewed the patient's lab results. Labs: Laboratory Results - last 24 hr 09/15/24 12:04 WBC 20.5 H RBC 5.15 Hgb 15.5 Hct 46.2 MCV 89.7 MCH 30.1 MCHC 33.5 RDW Std Deviation 47.3 H RDW Coeff of Chris 14.4 Plt Count 141 L MPV 9.8 Immature Gran % (Auto) 0.400 Neut % (Auto) 79.7 H Lymph % (Auto) 9.2 L [place] % (Auto) 10.3 H Eos % (Auto) 0.3 Baso % (Auto) 0.1 Absolute Neuts (auto) 16.3 H Absolute Lymphs (auto) 1.88 Nucleated RBC % 0 Differential Comment SCANNED Diff Path Review May foll Platelet Estimate SLT DEC RBC Morphology NORM C+C Sodium 139 Potassium 3.3 L Chloride 109 H Carbon Dioxide 22.0 Anion Gap 8 BUN 14 Creatinine 1.60 H Estim Creat Clear Calc 81.25 Est GFR (MDRD) Af Amer 59 L Est GFR (MDRD) Non-Af 49 L BUN/Creatinine Ratio 8.8 L Glucose 135 H Calcium 8.8 Total Bilirubin 1.40 H Direct Bilirubin 0.35 H AST 10 L ALT 19 Alkaline Phosphatase 119 H Total Protein 7.5 Albumin 3.5 Globulin 4.0 Lipase 14 Management Discussion w/another healthcare provider: Sole Rounding Machine Operator (Dr. Mancera ([facility] Surgery) and [facility] Surgical Quarterback (Dr. Starks sp?)) and Radiologist Discharge Plan Triage Chief Complaint: Abd Pain ED Provider: Dima Leonard Dx/Rx/DC Orders Clinical Impression: Abdominal pain, acute, Acute appendicitis, Liver transplant recipient Prescriptions: No Action albuterol sulfate 90 mcg/actuation HFA aerosol inhaler 2 inh INHALATION Q4H PRN PRN (Reason: breathing) metoprolol tartrate 100 mg tablet 100 mg PO BID tamsulosin 0.4 mg capsule 0.4 mg PO DAILY gabapentin 800 mg tablet 800 mg PO TID hydralazine 100 mg tablet 100 mg PO TID nifedipine 60 mg tablet extended release 60 mg PO DAILY tacrolimus 1 mg capsule 2 mg PO BID duloxetine 20 mg capsule,delayed release(DR/EC) 20 mg PO DAILY magnesium oxide 400 mg magnesium capsule 800 mg PO TID Primary Care Provider: Jovan Hamilton Referrals: Jovan Hamilton MD [Primary Care Provider] - Print Language: Slovenian Disposition Disposition: Acute Care Hospital Discharge Location: [facility]
[2024-09-15 12:12] LABS: Absolute Lymphocyte Count 1.88 X10^3/uL (0.83-4.51); Absolute Neutrophil Count 16.3 X10^3/uL (2.0-7.7); Basophil# 0.03 X10^3/uL; Basophil% 0.1 % (0-1); Differential Indicated SCAN CRITERIA MET; Eosinophil# 0.06 X10^3/uL; Eosinophils% 0.3 % (0-5); Hematocrit 46.2 % (40-54); Hemoglobin 15.5 g/dL (13.0-16.5); Lymphocyte # 1.88 X10^3/ul (0.83-4.51); Lymphocyte % 9.2 % (19-41); Mean Corp Hgb Conc 33.5 g/dL (32-36); Mean Corpuscular Hgb 30.1 pg (27.0-32.0); Mean Corpuscular Volume 89.7 fL (80-94); Mean Platelet Vol. 9.8 fl (6.2-12.0); Monocyte# 2.11 X10^3/uL; Monocyte% 10.3 % (0-10); NRBC Flagged by Analyzer 0 % (0-5); Neutrophil # 16.31 X10^3/uL (2.7-7.7); Neutrophil % 79.7 % (47-70); POSITIVE DIFFERENTIAL YES; Platelet Count 141 K/mm3 (150-450); RBC Distribution Width CV 14.4 % (11.6-14.6); RBC Distribution Width SD 47.3 fl (35.1-43.9); Red Blood Count 5.15 M/mm3 (4.6-6.2); White Blood Count 20.5 K/mm3 (4.4-11.0)
[2024-09-15] MEDS: Ondansetron 4 MG/2 ML Vial IV (12:13)
[2024-09-15] MEDS: Morphine 4 MG/ML Syringe IV (12:13)
[2024-09-15 12:30] LABS: AST(SGOT) 10 U/L (15-37); Alanine Aminotransfer ALT/SGPT 19 U/L (16-61); Albumin, Serum 3.5 g/dL (3.2-5.0); Alkaline Phosphatase 119 U/L (45-117); Anion Gap 8 (5-15); BUN 14 mg/dL (7-18); BUN/Creat Ratio 8.8 RATIO (10-20); Bilirubin, Direct 0.35 mg/dL (0.00-0.30); Calcium,Total 8.8 mg/dL (8.5-10.1); Chloride 109 mmol/L (98-107); EST Glomerular Filtration Rate 49 mL/min (>60); Est Glom Filt Rate - Afr Amer 59 mL/min (>60); Estimated Creatinine Clearance 81.25 ml/min; Glucose 135 mg/dL (74-106); Lipase 14 U/L (13-75); Potassium 3.3 mmol/L (3.5-5.1); Protein, Total 7.5 g/dL (6.4-8.2); Sodium Level 139 mmol/L (136-145)
--- NOTE | 2024-09-15 12:59 | ED.RN ---
Called [facility] for transfer. They will talk to surgeon and transplant team and call back.
[2024-09-15 13:00] LABS: Differential Comment SCANNED; Platelet Estimate SLT DEC (ADEQ); Red Cell Morphology NORM C+C NORMAL (NORM C&C)
[2024-09-15] MEDS: Cefepime HCl 2 GM in 0.9% Normal Saline (100mL MB+) 100 ML IV (13:11)
[2024-09-15 13:38] VITALS: BP 120/72; PULSE 68; RESP 12; O2SAT 97
[2024-09-15] MEDS: metroNIDAZOLE 500 MG/100 ML BAG 100 MG IV (14:23)
[2024-09-15 15:00] VITALS: BP 119/72; PULSE 66; RESP 18; O2SAT 98
[2024-09-15 15:30] VITALS: BP 121/71; PULSE 63; RESP 12; TEMP 36.8; O2SAT 100
[2024-09-17 13:41] LABS: Pathologist Review Reviewed
== END 2024-09-15 15:45 | disposition short-term general hospital (02) ==
PROVIDERS: Emergency Provider Emergency Medicine; PCP Family Medicine; Visit Provider Emergency Medicine
DX: R10.31 Right lower quadrant pain (principal); Z94.4 Liver transplant status; N18.32 Chronic kidney disease, stage 3b; I12.9 Hypertensive chronic kidney disease with stage 1 through stage 4 chronic kidney disease, or unspecified chronic kidney disease; Z87.891 Personal history of nicotine dependence; K37 Unspecified appendicitis; Z79.621 Long term (current) use of calcineurin inhibitor; E66.9 Obesity, unspecified
CPT/HCPCS: 74177; 80048; 80076; 83690; 85025; 87040; 96365; 96375; 99284; J7030; Q9967; A4216; J2405

== ENCOUNTER 2025-02-28 14:06 | Emergency (ER) | payer MEDICARE, OTHER, SELFPAY ==
[2025-02-28 14:07] VITALS: BP 147/100; PULSE 75; RESP 18; TEMP 36.1; O2SAT 94; BMI 34.8
--- NOTE | 2025-02-28 14:09 | EKG12_ITS ---
Test Reason : GENERAL Blood Pressure : */* mmHG Vent. Rate : 67 BPM Atrial Rate : 67 BPM P-R Int : 206 ms QRS Dur : 92 ms QT Int : 452 ms P-R-T Axes : 38 11 30 degrees QTcB Int : 477 ms Normal sinus rhythm Nonspecific T wave abnormality Prolonged QT Abnormal ECG Confirmed by Efren Gonzalez ([id number]), sports editor MATTEO MCKEON ([id number]) on 03/01/2025 9:18:33 AM Referred By: Confirmed By: Efren Gonzalez
--- NOTE | 2025-02-28 14:09 | RAD_ITS ---
PROCEDURE: CHEST 1 VIEW (PORTABLE) 02/28/2025 REASON FOR EXAM: CHEST PAIN TECHNIQUE: Frontal view of the chest. COMPARISON: Prior chest radiograph dated May 14, 2022. FINDINGS: Hardware: None Heart: Borderline cardiomegaly. Calcification of the aortic arch. Lungs: Small left pleural effusion with left basilar infiltration and/or atelectasis. Calcified granulomas. Calcified bilateral hilar lymph nodes. Bones: Degenerative changes are identified within the thoracic spine. Other: RAD/Chest 1 View (Portable) IMPRESSION: Small left pleural effusion with left basilar infiltration and/or atelectasis. Reading Location: [id number]
[2025-02-28 15:53] LABS: Absolute Lymphocyte Count 2.29 X10^3/uL (0.83-4.51); Absolute Neutrophil Count 5.6 X10^3/uL (2.0-7.7); Basophil# 0.03 X10^3/uL; Basophil% 0.3 % (0-1); Eosinophil# 1.12 X10^3/uL; Eosinophils% 11.2 % (0-5); Hemoglobin 14.8 g/dL (13.0-16.5); Lymphocyte # 2.29 X10^3/ul (0.83-4.51); Lymphocyte % 22.9 % (19-41); Mean Corp Hgb Conc 33.6 g/dL (32-36); Mean Corpuscular Hgb 30.3 pg (27.0-32.0); Mean Platelet Vol. 8.8 fl (6.2-12.0); NRBC Flagged by Analyzer 0 % (0-5); Neutrophil # 5.64 X10^3/uL (2.7-7.7); Neutrophil % 56.3 % (47-70); Platelet Count 213 K/mm3 (150-450); RBC Distribution Width CV 13.9 % (11.6-14.6); RBC Distribution Width SD 45.8 fl (35.1-43.9); Red Blood Count 4.89 M/mm3 (4.6-6.2)
[2025-02-28 16:08] LABS: Anion Gap 12 (5-15); BUN 15 mg/dL (4-19); BUN/Creat Ratio 12.5 RATIO (10-20); Carbon Dioxide 23.8 mmol/L (21.0-32.0); Chloride 107 mmol/L (98-108); Creatinine, Serum 1.22 mg/dL (0.70-1.20); EST Glomerular Filtration Rate 71 (>60); Estimated Creatinine Clearance 104.16 ml/min (50-250); Glucose 106 mg/dL (70-99); Potassium 3.5 mmol/L (3.3-5.1); Sodium Level 143 mmol/L (133-145); Troponin T High Sensitivity 15 ng/L (<=22)
--- NOTE | 2025-02-28 18:03 | ED.VIS.CHEST ---
HPI History of Present Illness Chief Complaint: Chest Pain PFSH PFSH Medical History RON (acute kidney injury) Stage 3b chronic kidney disease (CKD) Chronic anemia Pancreatitis Former smoker Irregular heart beat Hypertension Hypoalbuminemia Ascites due to chronic alcoholic hepatitis Anasarca Cirrhosis GI bleed Portal hypertension Splenomegaly Thrombocytopenia Hyperbilirubinemia History of alcohol abuse Macrocytic anemia Afib Resistant hypertension Mild intermittent asthma Home Medications ?Medication ?Instructions ?Recorded ?Last Taken ?Type albuterol sulfate 90 mcg/actuation 2 inh inhalation Q4H PRN PRN 05/09/22 Unknown History aerosol inhaler breathing duloxetine 20 mg capsule,delayed 20 mg PO DAILY 09/15/24 Unknown History release gabapentin 800 mg tablet 800 mg PO TID 09/15/24 Unknown History hydralazine 100 mg tablet 100 mg PO TID 09/15/24 Unknown History magnesium oxide 800 mg PO TID 09/15/24 Unknown History metoprolol tartrate 100 mg tablet 100 mg PO BID 09/15/24 Unknown History nifedipine 60 mg tablet,extended 60 mg PO DAILY 09/15/24 Unknown History release tacrolimus 1 mg capsule, 2 mg PO BID 09/15/24 Unknown History immediate-release tamsulosin 0.4 mg capsule 0.4 mg PO DAILY 09/15/24 Unknown History doxycycline hyclate 100 mg tablet 100 mg PO Q12H 10 days #20 tabs 02/28/25 Unknown Rx oxycodone 5 mg tablet 5 mg PO Q6H PRN pain 4 days #16 02/28/25 Unknown Rx tabs Allergy/AdvReac Type Severity Reaction Status Date / Time fish derived Allergy Anaphylaxis Verified 02/28/25 14:07 Penicillins Allergy Hives Verified 02/28/25 14:07 Family History Father Liver disease Other Aortic valve disease CAD (coronary artery disease) COPD (chronic obstructive pulmonary disease) Cancer Hyperlipidemia Hypertension Surgical History Liver transplant recipient History of mandibular surgery S/P hernia surgery Social History household members: spouse housing: house current occupational status: employed current occupation: Works in the [employer] business Smoking Status: Former smoker Smokeless tobacco user: chewing tobacco how long ago did patient quit smokin yrs alcohol intake: former details: Last drink was 2021 substance use type: does not use EXAM Physical Exam Const Vital Signs: 02/28/25 14:07 02/28/25 18:08 02/28/25 18:08 Temperature 97 F L Temperature Source Temporal Pulse Rate 75 75 Respiratory Rate 18 18 Respiratory Effort Blood Pressure 147/100 H 146/87 H Blood Pressure Mean 115 106 Pulse Ox 94 95 Oxygen Delivery Method Room Air Room Air Room Air 02/28/25 18:08 02/28/25 19:57 Temperature Temperature Source Pulse Rate 63 Respiratory Rate 12 Respiratory Effort Short of Breath Blood Pressure 137/78 H Blood Pressure Mean 97 Pulse Ox 97 Oxygen Delivery Method Room Air MDM MDM MDM Narrative Medical decision making narrative: HISTORY OF PRESENT ILLNESS: Chief complaint: Chest pain 54-year-old male history of CKD 3, pancreatitis, hypertension, liver cirrhosis, portal hypertension status post liver transplant on tacrolimus, A-fib, asthma presents with left rib/left upper chest pain and shortness of breath. Notes this began approximately 3 AM on 02/28/2025. States he had a fall approximate 15 days ago injuring in the left side of his chest. The patient denies recent surgery in the last 4 weeks or immobilization in the last 3 days, denies previous diagnosis of DVT or PE, hemoptysis, unilateral leg swelling or malignancy with treatment the last 6 months or palliative. No estrogen use noted. Patient denies sudden onset of pain, no tearing sensation, no migratory symptoms, no new numbness, weakness or loss of sensation. Patient denies family history or personal history of Connective tissue disorders (Marfan's Syndrome, Chip Danlos etc) REVIEW OF SYSTEMS: Pertinent positives: Chest pain Pertinent negatives: As per HPI PHYSICAL EXAM: Nursing triage notes reviewed, Vital signs reviewed Constitutional: please see mdm HENT: MMM Eyes: Pupils equal round and reactive to light, Extraocular muscles intact Neck: No stridor, no JVD, full neck ROM Lungs: Clear to auscultation, diminished breath sounds over left base. No wheezing or rales. No increased work of breathing, no conversational dyspnea, no accessory muscle use, no nasal flaring. No respiratory distress noted Heart: Regular rate and rhythm, No murmurs, No rubs and No gallops, 2+ distal pulses (radial, femoral, posterior tibial) in all extremities Abdomen: Soft, there is no tenderness, rigidity, rebound or guarding, no obvious peritoneal signs, no palpable pulsatile abdominal masses, no auscultated abdominal bruit : No CVAT Extremities: No edema Neuro: No new focal neurological deficits, cranial nerves II through XII intact, 5/5 strength in all present extremities. Intact sensation to light touch in all present extremities, 2+ reflexes bilateral patella tendons. Skin: No rash or lesions noted MEDICAL DECISION MAKING: Chief Complaint: please see HPI External records reviewed: Reviewed prior cardiovascular testing. Reviewed exercise stress test from 2014. Factors affecting care: As per [facility] Social determinants of health: none History obtained from others: none Consults: none [facility] Narrative: The patient was initially hemodynamically stable, afebrile and nontoxic-appearing. Exam with TTP over left rib margin. Diminished breath sounds in left lung base. Triage orders were placed secondary to poor department of conditions including high volume and high acuity. Triage orders included BMP, high-sensitivity troponin protocol, CBC, chest x-ray, EKG, cardiac monitoring. After evaluated the patient I treated the patient with 500 cc bolus, 4 mg IV Zofran, 15 mg IV Toradol and 4 mg of IV morphine I considered the following differential diagnosis: ACS, arrhythmia, anemia, electrolyte disturbance, pneumonia, PE, aortic dissection, pneumothorax ALL IMAGES (IF OBTAINED) HAVE BEEN PERSONALLY REVIEWED AND INTERPRETED BY MYSELF. CBC without leukocytosis, severe anemia, no thrombocytopenia. BMP without evidence of significant electrolyte abnormalities, no anion gap, no acute kidney injury. High-sensitivity troponin is negative, no evidence of myocardial ischemia x2 I have personally reviewed the patient's chest x-ray. Chest x-ray showed a left lower lobe infiltrate concerning for pneumonia While I considered pulmonary embolism the potential etiology the patient had a low risk Wells score and as such I have a low suspicion for PE. No indication for D-dimer or advanced imaging of the chest at this time. The synthesis of the patient's history, physical exam, labs imaging suggest likely posttraumatic pneumonia. Will give oral antibiotics and narcotic pain control. The patient and/or family, caregivers express understanding. The patient and/or family, caregivers agrees with the plan. Shared decision making: I will have a discussion with the patient and or visitors regarding risk/benefits of further testing or admission. They will be made aware of of the risk/benefits inherent in this decision they will be given the opportunity to voice understanding. Total critical care time today provided was at least 0 minutes. This excludes separately billable procedures. Critical care time (if documented) is secondary to the patient having high probability of clinically significant/life threatening deterioration in the patient's condition which required my urgent intervention. Impression: 1. Left-sided chest pain 2. Community-acquired pneumonia Dispo: Discharge home This note was generated with [employer] dictation software. It may contain incorrect words, spelling, and punctuation that were not noted in review of the chart prior to signing. Lab Data Labs: Laboratory Results - last 24 hr 02/28/25 02/28/25 02/28/25 15:36 18:19 19:50 WBC 10.0 RBC 4.89 Hgb 14.8 Hct 44.0 MCV 90.0 MCH 30.3 MCHC 33.6 RDW Std Deviation 45.8 H RDW Coeff of Chris 13.9 Plt Count 213 MPV 8.8 Immature Gran % (Auto) 0.300 Neut % (Auto) 56.3 Lymph % (Auto) 22.9 [place] % (Auto) 9.0 Eos % (Auto) 11.2 H Baso % (Auto) 0.3 Absolute Neuts (auto) 5.6 Absolute Lymphs (auto) 2.29 Nucleated RBC % 0 Sodium 143 Potassium 3.5 Chloride 107 Carbon Dioxide 23.8 Anion Gap 12 BUN 15 Creatinine 1.22 H Estim Creat Clear Calc 104.16 Est GFR (MDRD) Non-Af 71 BUN/Creatinine Ratio 12.5 Glucose 106 H Calcium 9.0 Troponin T High Sens 15 Troponin T Hi Sens 2 Hr 14 Troponin T Hi Sens 4Hr 11 Radiography Diagnostic Testing: Clinical Impression(s) from Imaging Studies Chest X-Ray 02/28/25 14:09 IMPRESSION: Small left pleural effusion with left basilar infiltration and/or atelectasis. Reading Location: [id number] Discharge Plan Triage Chief Complaint: Chest Pain ED Provider: Surya Olivarez Dx/Rx/DC Orders Clinical Impression: Community acquired pneumonia Instructions: ED Pneumonia (Adult) Prescriptions: New doxycycline hyclate 100 mg tablet 100 mg PO Q12H 10 Days Qty: 20 0RF oxycodone 5 mg tablet 5 mg PO Q6H PRN (Reason: pain) 4 Days Qty: 16 0RF No Action albuterol sulfate 90 mcg/actuation HFA aerosol inhaler 2 inh INHALATION Q4H PRN PRN (Reason: breathing) metoprolol tartrate 100 mg tablet 100 mg PO BID tamsulosin 0.4 mg capsule 0.4 mg PO DAILY gabapentin 800 mg tablet 800 mg PO TID hydralazine 100 mg tablet 100 mg PO TID nifedipine 60 mg tablet extended release 60 mg PO DAILY tacrolimus 1 mg capsule 2 mg PO BID duloxetine 20 mg capsule,delayed release(DR/EC) 20 mg PO DAILY magnesium oxide 400 mg magnesium capsule 800 mg PO TID Primary Care Provider: Jovan Hamilton Referrals: Jovan Hamilton MD [Primary Care Provider] - Activity Restrictions/Additional Instructions: Thank you for trusting us with your care today! Please take Tylenol (2 pills, 650 mg), ibuprofen (2 pills, 400 mg) every 6 hours as needed for pain and fever control. Your chest x-ray was consistent with pneumonia. This to treat with antibiotics. Please take antibiotics until course is complete. The remainder of your testing was reassuring specifically for signs of damage to your heart, lung collapse or broken ribs. Please use incentive spirometer as much as possible to encourage full lung inflation which will decrease your risk for developing pneumonia further. Please return to the emergency department if your symptoms change or worsen. Please follow with your primary care physician for further outpatient evaluation and management. Print Language: Yoruba Disposition Disposition: Home, Self Care Discharge Date/Time: 02/28/25 20:16
[2025-02-28 18:08] VITALS: BP 146/87; PULSE 75; RESP 18; O2SAT 95
[2025-02-28] MEDS: Morphine 4 MG/ML Syringe IV (18:21)
[2025-02-28] MEDS: Ondansetron 4 MG/2 ML Vial IV (18:21)
[2025-02-28] MEDS: 0.9% Normal Saline (500mL Bag) 500 ML 999 ML IV (18:22)
[2025-02-28] MEDS: Ketorolac 15 MG/ML Vial IV (18:22)
[2025-02-28 19:05] LABS: Troponin T High Sens 2 HR 14 ng/L (<=22)
[2025-02-28 19:57] VITALS: BP 137/78; PULSE 63; RESP 12; O2SAT 97; O2SAT 98
[2025-02-28] MEDS: Doxycycline 100 MG CAPSULE PO (20:12)
[2025-02-28 20:25] LABS: Troponin T High Sens 4 HR 11 ng/L (<=22)
== END 2025-02-28 20:16 | disposition home or self-care (01) ==
PROVIDERS: Emergency Provider Emergency Medicine; PCP Family Medicine; Visit Provider Emergency Medicine
DX: J18.9 Pneumonia, unspecified organism (principal); Z94.4 Liver transplant status; I48.91 Unspecified atrial fibrillation; N18.32 Chronic kidney disease, stage 3b; R07.89 Other chest pain; I12.9 Hypertensive chronic kidney disease with stage 1 through stage 4 chronic kidney disease, or unspecified chronic kidney disease; Z87.891 Personal history of nicotine dependence; Z79.899 Other long term (current) drug therapy; J45.909 Unspecified asthma, uncomplicated
CPT/HCPCS: 71045; 80048; 84484; 85025; 93005; 96361; 96374; 96375; 99284; A4216; J2405